=== PATIENT | female | born 1955 | race American Indian/Alaskan Native ===

== ENCOUNTER 2016-10-20 00:57 | Emergency (ER) | payer MEDICAID ==
[2016-10-20 00:57] VITALS: BMI 37.7
[2016-10-20] MEDS ORDERED: Albuterol-Ipratrop 3 mg / 0.5 (3 ml) UD INH STA (01:17)
[2016-10-20 01:27] LABS: BASO % 0.8 % (0.0-2.0); EOS # 0.2 K/uL (0.0-0.7); EOS % 4.8 % (0.0-4.0); HEMATOCRIT 40.7 % (34.0-47.0); LYMPH # 1.4 K/uL (1.0-4.3); LYMPH % 28.6 % (20.0-40.0); MEAN CELL VOLUME 86.6 fL (81.0-99.0); MEAN CORPUSCULAR HEMOGLOBIN 27.1 pg (27.0-31.0); MEAN CORPUSCULAR HGB CONC 31.3 g/dL (33.0-37.0); MEAN PLATELET VOLUME 8.7 fL (7.2-11.7); MONO # 0.4 K/uL (0.0-0.8); MONO % 7.9 % (0.0-10.0); NRBC % 0.1 % (0.0-2.0); RED CELL DISTRIBUTION WIDTH 18.1 % (11.5-14.5); WHITE BLOOD COUNT 4.9 K/uL (4.8-10.8)
[2016-10-20] MEDS ORDERED: Magnesium Sulfate 1 gm in D5W 200 ML IVPB ONE (01:27)
[2016-10-20] MEDS ORDERED: Albuterol-Ipratrop 3 mg / 0.5 (3 ml) UD ONE (01:28)
[2016-10-20 01:36] LABS: CHLORIDE 99 mmol/L (98-107)
[2016-10-20 01:37] LABS: POTASSIUM 4.2 mmol/L (3.6-5.2); SODIUM 137 mmol/L (132-148)
[2016-10-20 01:39] LABS: BILIRUBIN,TOTAL 0.7 mg/dL (0.2-1.3); CARBON DIOXIDE 30 mmol/L (22-30); GFR AFRICAN-AMERICAN > 60
[2016-10-20 01:40] LABS: ALB/GLOB RATIO 1.1 (1.0-2.1); ALKALINE PHOSPHATASE 81 U/L (38-126); ALT/SGPT 28 U/L (9-52); AST/SGOT 28 U/L (14-36); BLOOD UREA NITROGEN 18 mg/dL (7-17); GLUCOSE,RANDOM 87 mg/dL (65-105); TOTAL PROTEIN 6.6 g/dL (6.3-8.3)
[2016-10-20 04:46] VITALS: BP 160/88; PULSE 90; RESP 16; TEMP 98; O2SAT 92
--- NOTE | 2016-10-20 06:02 | C.PDOC ---
History Of Present Illness 61 year old female patient presents to the ED c/o asthma symptoms (increasing SOB) for the past couple of days. Patient denies chest pain, abdominal pain, fever, cough, chills, or any other complaints. Patient is compliant with her medications Chief Complaint (Nursing): Shortness Of Breath History Per: Patient History/Exam Limitations: no limitations Onset/Duration Of Symptoms: Days Current Symptoms Are (Timing): Still Present Severity: Mild Recent travel outside of the [place]: No Past Medical History Reviewed: Historical Data, Nursing Documentation, Vital Signs Vital Signs: Last Vital Signs Temp 98.0 F 10/20/16 04:44 Pulse 90 10/20/16 04:44 Resp 16 10/20/16 04:44 BP 160/88 H 10/20/16 04:44 Pulse Ox 92 L 10/20/16 06:20 - Medical History PMH: Asthma, COPD (asthma), HTN Surgical History: Cholecystectomy - [facility] Procedures ASSISTANCE WITH RESPIRATORY VENTILATION, 24-96 HRS, CPAP (07/14/16) CONTINUOUS INVASIVE MECHANICAL VENTILATION =/>96 CONSEC HRS (07/25/14) DETOXIFICATION SERVICES FOR SUBSTANCE ABUSE TREATMENT (03/26/15) DRUG DETOXIFICATION (07/25/14) EXCISION OF RIGHT PLEURA, PERC ENDO APPROACH, DIAGN (03/26/15) EXCISION OF RIGHT UPPER LOBE BRONCHUS, PERC APPROACH, DIAGN (03/26/15) EXTRACTION OF RIGHT PLEURA, PERCUTANEOUS ENDOSCOPIC APPROACH (03/26/15) INFLUENZA VACCINATION (06/25/14) INSERT ENDOTRACHEAL TUBE (07/25/14) Family History: States: Unknown Family Hx - Social History Hx Tobacco Use: Yes Hx Alcohol Use: Yes Hx Substance Use: Yes (Snorts Heroin) - Immunization History Hx Tetanus Toxoid Vaccination: No Hx Influenza Vaccination: Yes Hx Pneumococcal Vaccination: No Review Of Systems Except As Marked, All Systems Reviewed And Found Negative. Constitutional: Negative for: Fever, Chills Cardiovascular: Negative for: Chest Pain Respiratory: Positive for: Shortness of Breath. Negative for: Cough Gastrointestinal: Negative for: Abdominal Pain Physical Exam - Physical Exam Appears: Non-toxic, No Acute Distress Skin: Warm, Dry Head: Atraumatic, Normacephalic Eye(s): bilateral: Normal Inspection Cardiovascular: Rhythm Regular, No Murmur Respiratory: No Rales, No Rhonchi, Wheezing (Mild expiratory wheezing) Gastrointestinal/Abdominal: Soft, No Tenderness Extremity: Pedal Edema (+ 1 pedal edema of the lower extremity) Neurological/Psych: Oriented x3, Normal Speech, Normal Cognition ED Course And Treatment - Laboratory Results Result Diagrams: 10/20/16 01:24 10/20/16 01:24 ECG: Interpreted By Me, Viewed By Me ECG Rhythm: L BBB (66) O2 Sat by Pulse Oximetry: 92 (Nebulizer treatment) Pulse Ox Interpretation: Normal Medical Decision Making Medical Decision Making: Plans: -EKG -CXR -Albuterol -Lasix -Toradol -IV fluids -Medrol -Nebulizer treatment -Reassess and disposition On reassessment, patient is resting comfortably. ~Patient is alert and oriented x 3. ~Patient was advised to follow up with PMD in a few days. Disposition - Disposition Referrals: Fartun Quinteros MD [Primary Care Provider] - Disposition: HOME/ ROUTINE Disposition Time: 04:30 Condition: IMPROVED Additional Instructions: Thank you for letting us take care of you today. Your provider was Dr. Chavis. You were treated for asthma exacerbation. The emergency medical care you received today was directed at your acute symptoms. If you were prescribed any medication, please fill it and take as directed. It may take several days for your symptoms to resolve. Return to the Emergency Department if your symptoms worsen, do not improve, or if you have any other problems. Please contact your doctor or call one of the physicians/clinics you have been referred to that are listed on the Patient Visit Information form that is included in your discharge packet. Bring any paperwork you were given at discharge with you along with any medications you are taking to your follow up visit. Our treatment cannot replace ongoing medical care by a primary care provider (PCP) outside of the emergency department. Thank you for allowing the [facility] team to be part of your care today. Follow up with your primary doctor in 2-3 days to be re-evaluated. Prescriptions: predniSONE [Prednisone] 40 mg PO DAILY #10 tab Instructions: Asthma (ED) - Clinical Impression Clinical Impression: Exacerbation of asthma - Scribe Statement The provider has reviewed the documentation as recorded by the Scribe Dominique horne All medical record entries made by the Scribe were at my direction and personally dictated by me. I have reviewed the chart and agree that the record accurately reflects my personal performance of the history, physical exam, medical decision making, and the department course for this patient. I have also personally directed, reviewed, and agree with the discharge instructions and disposition.
--- NOTE | 2016-10-20 09:09 | RAD ---
HISTORY: Shortness of breath COMPARISON: 07/17/2016 FINDINGS: LUNGS: Mild venous congestion. Bilateral hilar prominence. Patchy increased markings at the lung bases. PLEURA: No significant pleural effusion identified, no pneumothorax apparent. CARDIOVASCULAR: Mild calcification at the aortic knob. OSSEOUS STRUCTURES: Calcific tendinopathy of the right proximal humerus. VISUALIZED UPPER ABDOMEN: Normal. OTHER FINDINGS: None. IMPRESSION: Mild venous congestion. Bilateral hilar prominence. Patchy increased markings at the lung bases.
--- NOTE | 2016-10-20 12:48 | CARD ---
APPROVED REPORT EKG Measurement Heart [id number] MD [id number] <Conclusion> Normal sinus rhythm Possible Left atrial enlargement Left bundle branch block Abnormal ECG
== END 2016-10-20 04:46 | disposition home or self-care (01) ==
LOC: C.ER 00:57 → SUPCPDRO 00:57 → C.ER 04:46
DX: J45.901 Unspecified asthma with (acute) exacerbation (principal)
CPT/HCPCS: 71010; 80053; 83880; 84484; 85025; 93005; 94640; 96365; 96366; 96375; 99284; J1885; J1940; J2930; J3475

== ENCOUNTER 2016-10-24 13:09 | Inpatient (IN) | payer MEDICAID ==
[2016-10-24 13:15] VITALS: BMI 30.1
[2016-10-24] MEDS ORDERED: Albuterol-Ipratrop 3 mg / 0.5 (3 ml) UD INH STA ×3 (13:37→15:27)
[2016-10-24] MEDS ORDERED: Naloxone 0.4 mg/ml Inj (Adult) IM ONE ×2 (13:37→18:41)
[2016-10-24] MEDS ORDERED: Albuterol-Ipratrop 3 mg / 0.5 (3 ml) UD ONE ×2 (13:45→15:47)
[2016-10-24] MEDS ORDERED: Naloxone 0.4 mg/ml Inj (Adult) ONE ×2 (13:46→15:41)
[2016-10-24] MEDS ORDERED: Naloxone 0.4 mg/ml Inj (Adult) IM STA (15:27)
--- NOTE | 2016-10-24 15:29 | C.PDOC ---
History Of Present Illness 61 y/o female is brought into the ED by ambulance for complaints of wheezing and shortness of breath. She was seen here 4 days ago for same and did not fill her Prednisone prescription. She admits to persistent heroin abuse (snorting) and states she has used 4 bags today. Patient denies any chest pain, fever, SI/ HI, or other complaints. Time Seen by Provider: 10/24/16 13:30 Chief Complaint (Nursing): Shortness Of Breath Past Medical History Vital Signs: Last Vital Signs Temp 98.9 F 10/24/16 13:15 Pulse 88 10/24/16 15:51 Resp 24 10/24/16 15:51 BP 167/95 H 10/24/16 15:51 Pulse Ox 98 10/24/16 16:42 - Medical History PMH: Asthma, COPD (asthma), HTN Surgical History: Cholecystectomy - [facility] Procedures ASSISTANCE WITH RESPIRATORY VENTILATION, 24-96 HRS, CPAP (07/14/16) CONTINUOUS INVASIVE MECHANICAL VENTILATION =/>96 CONSEC HRS (07/25/14) DETOXIFICATION SERVICES FOR SUBSTANCE ABUSE TREATMENT (03/26/15) DRUG DETOXIFICATION (07/25/14) EXCISION OF RIGHT PLEURA, PERC ENDO APPROACH, DIAGN (03/26/15) EXCISION OF RIGHT UPPER LOBE BRONCHUS, PERC APPROACH, DIAGN (03/26/15) EXTRACTION OF RIGHT PLEURA, PERCUTANEOUS ENDOSCOPIC APPROACH (03/26/15) INFLUENZA VACCINATION (06/25/14) INSERT ENDOTRACHEAL TUBE (07/25/14) Family History: States: Unknown Family Hx - Social History Hx Tobacco Use: Yes Hx Alcohol Use: Yes Hx Substance Use: Yes (Snorts Heroin) - Immunization History Hx Tetanus Toxoid Vaccination: No Hx Influenza Vaccination: Yes Hx Pneumococcal Vaccination: No Review Of Systems Except As Marked, All Systems Reviewed And Found Negative. Constitutional: Negative for: Fever Cardiovascular: Negative for: Chest Pain Respiratory: Positive for: Shortness of Breath, Wheezing Psych: Negative for: Suicidal ideation Physical Exam - Physical Exam Appears: Non-toxic, No Acute Distress, Other (somnolent) Skin: Normal Color, Warm, Dry, No Rash Head: Atraumatic, Normacephalic Eye(s): bilateral: Other (pinpoint pupils) Nose: Normal Throat: Normal Neck: Normal ROM Chest: Symmetrical Cardiovascular: Rhythm Regular Respiratory: Rhonchi (scattered), Wheezing (scattered), Other (unlabored breathing; poor air movement) Gastrointestinal/Abdominal: Normal Exam, Soft, No Tenderness Back: Normal Inspection, No CVA Tenderness Extremity: Normal ROM, No Swelling Neurological/Psych: Oriented x3, Normal Speech, Normal Cognition ED Course And Treatment - Laboratory Results Result Diagrams: 10/24/16 15:34 10/24/16 15:34 Lab Interpretation: Normal ECG: Interpreted By Me ECG Rhythm: Sinus Rhythm, L BBB ECG Interpretation: No Changes From Prior (10/20/16), Abnormal Rate From EC O2 Sat by Pulse Oximetry: 98 (ra) Pulse Ox Interpretation: Normal - Radiology CXR: Interpreted by Me CXR Interpretation: Yes: No Acute Disease Progress Note: a Reevaluation Time: 15:28 Reassessment Condition: Unchanged (mild asthma improvement, asleep, poor resp effort, pinpoint pupils, ? redosed with heroine while in ED?? Narcan 2.0 mg IM ordered and pt moved closer to nursing station.) Critical Care Time - Critical Care Note Total Time (in mins): 90 Documented critical care: time excludes all time spent performing seperately billable procedures. Medical Decision Making Medical Decision Making: Plan: * EKG * CXR * Blood Work * Urinalysis * Narcam IM, Prednisone PO, Duonebs heroine abuse (intranasal) asthma exacerbation, poor outpatient treatment since 10/20/16 (did not fill steroids and unclear if doing home nebs treatments) Disposition Doctor Will See Patient In The: Hospital Counseled Patient/Family Regarding: Studies Performed, Diagnosis - Disposition Disposition: HOSPITALIZED Disposition Time: 16:38 Condition: FAIR - Clinical Impression Clinical Impression: Exacerbation of asthma, Heroin dependence - Scribe Statement The provider has reviewed the documentation as recorded by the Scribe (Carolina Treviño) Provider Attestation: All medical record entries made by the Scribe were at my direction and personally dictated by me. I have reviewed the chart and agree that the record accurately reflects my personal performance of the history, physical exam, medical decision making, and the department course for this patient. I have also personally directed, reviewed, and agree with the discharge instructions and disposition.
[2016-10-24 15:40] LABS: BASO % 0.5 % (0.0-2.0); EOS # 0.2 K/uL (0.0-0.7); EOS % 2.2 % (0.0-4.0); HEMATOCRIT 43.4 % (34.0-47.0); LYMPH % 11.8 % (20.0-40.0); MEAN CELL VOLUME 85.1 fL (81.0-99.0); MEAN CORPUSCULAR HEMOGLOBIN 26.7 pg (27.0-31.0); MEAN CORPUSCULAR HGB CONC 31.3 g/dL (33.0-37.0); MEAN PLATELET VOLUME 8.2 fL (7.2-11.7); MONO # 0.3 K/uL (0.0-0.8); MONO % 3.6 % (0.0-10.0); RED CELL DISTRIBUTION WIDTH 18.1 % (11.5-14.5)
[2016-10-24 15:45] LABS: WHITE BLOOD COUNT 8.1 K/uL (4.8-10.8)
[2016-10-24 15:47] LABS: CHLORIDE 98 mmol/L (98-107); POTASSIUM 4.2 mmol/L (3.6-5.2); SODIUM 139 mmol/L (132-148)
[2016-10-24 15:49] LABS: GFR AFRICAN-AMERICAN 51
[2016-10-24 15:50] LABS: ALKALINE PHOSPHATASE 84 U/L (38-126); ALT/SGPT 38 U/L (9-52); AST/SGOT 26 U/L (14-36); BILIRUBIN,TOTAL 0.8 mg/dL (0.2-1.3); BLOOD UREA NITROGEN 35 mg/dL (7-17); CARBON DIOXIDE 29 mmol/L (22-30); GLUCOSE,RANDOM 95 mg/dL (65-105); TOTAL PROTEIN 6.7 g/dL (6.3-8.3)
[2016-10-24 15:51] LABS: ALCOHOL SERUM < 10 mg/dl (0-10)
--- NOTE | 2016-10-24 16:53 | RAD ---
PROCEDURE: CHEST RADIOGRAPH, 1 VIEW HISTORY: SOB COMPARISON: 10/20/2016. FINDINGS: LUNGS: Stable bilateral lower lobe. PLEURA: No pneumothorax or pleural fluid seen. CARDIOVASCULAR: No radiographic findings to suggest acute or significant cardiovascular disease. OSSEOUS STRUCTURES: No significant abnormalities. VISUALIZED UPPER ABDOMEN: Normal. OTHER FINDINGS: None. IMPRESSION: Stable bilateral lower lobe infiltrates.
--- NOTE | 2016-10-24 16:59 | CP.PCM.HP ---
<Nicole Simpson - Last Filed: 10/24/16 17:11> History of Present Illness - History of Present Illness History of Present Illness: Please note history is limited as patient was withdrawing CC: I couldn't breathe HPI: 61 year old homeless AA female with PMHx of HTN, COPD/asthma, pneumonia, heroin abuse presents to ED with complains of shortness of breath and wheezing. Patient reports having snorted 4 bags of heroin during the day prior to admission. Patient was brought in by EMS and was given one duoneb treatment en route and given 3 treatments in the ED. When she first arrived patient reported still being "high" and had pinpoint pupils. After being given narcan she began to withdraw and started complaining of vomiting and body aches. Patient had green colored emesis in the ED and was complaining of abdominal pain. Patient did report a "marc horse" but would not tell me in which leg. She reported that her breathing had improved slightly after the treatments. Patient denied any fever, chills, headaches, chest pain. ROS was limited. PMD: None PMHx: HTN, COPD/asthma, pneumonia, IV drug abuse (heroin). PSHx: cholecystectomy FamHx: unknown SocHx: homeless, heavy smoker 1ppd, patient reports drinking 1pint/day, IV drug abuse (heroin) 4-5 bags/day. Present on Admission - Present on Admission Any Indicators Present on Admission: Yes History of DVT/PE: Yes History of Uncontrolled Diabetes: No Urinary Catheter: No Decubitus Ulcer Present: No Review of Systems - Review of Systems Systems not reviewed;Unavailable: Intoxicated - Constitutional Constitutional: As Per HPI. absent: Fever - EENT Eyes: As Per HPI - Cardiovascular Cardiovascular: As Per HPI. absent: Chest Pain - Respiratory Respiratory: As Per HPI, Dyspnea, Dyspnea on Exertion, Wheezing - Gastrointestinal Gastrointestinal: As Per HPI, Abdominal Pain, Nausea, Vomiting - Genitourinary Genitourinary: As Per HPI - Musculoskeletal Musculoskeletal: As Per HPI, Muscle Cramps, Myalgias - Integumentary Integumentary: As Per HPI - Neurological Neurological: As Per HPI - Psychiatric Psychiatric: As Per HPI - Endocrine Endocrine: As Per HPI - Hematologic/Lymphatic Hematologic: As Per HPI Past Patient History - Infectious Disease Hx of Infectious Diseases: None - Past Medical History & Family History Past Medical History?: Yes - Past Social History Smoking Status: Heavy Smoker > 10 Cigarettes Daily - CARDIAC Hx Hypertension: Yes - PULMONARY Hx Asthma: Yes Hx Chronic Obstructive Pulmonary Disease (COPD): Yes (asthma) - NEUROLOGICAL Hx Neurological Disorder: No - HEENT Hx HEENT Problems: No - ENDOCRINE/METABOLIC Hx Endocrine Disorders: No - HEMATOLOGICAL/ONCOLOGICAL Hx Blood Disorders: No - INTEGUMENTARY Hx Dermatological Problems: No - MUSCULOSKELETAL/RHEUMATOLOGICAL Hx Falls: No - GASTROINTESTINAL Hx Gastrointestinal Disorders: No Hx Gastroesophageal Reflux: Yes - GENITOURINARY/GYNECOLOGICAL Hx Genitourinary Disorders: No - PSYCHIATRIC Hx Substance Use: Yes (Snorts Heroin) - SURGICAL HISTORY Hx Cholecystectomy: Yes - ANESTHESIA Hx Anesthesia: Yes Hx Anesthesia Reactions: No Hx Malignant Hyperthermia: No Meds Allergies/Adverse Reactions: Allergies Allergy/AdvReac Type Severity Reaction Status Date / Time No Known Allergies Allergy Verified 10/24/16 13:24 Physical Exam - Constitutional Appears: Non-toxic, In Acute Distress - Head Exam Head Exam: NORMAL INSPECTION - Eye Exam Eye Exam: Normal appearance. absent: Conjunctival injection, Periorbital swelling, Scleral icterus Pupil Exam: Miosis. absent: Unequal - ENT Exam ENT Exam: Mucous Membranes Dry - Respiratory Exam Respiratory Exam: Decreased Breath Sounds, Prolonged Expiratory Phase, Rhonchi, Wheezes. absent: Accessory Muscle Use, Clear to Auscultation Bilateral, Rales, Respiratory Distress, Stridor Additional comments: poor air movement - Cardiovascular Exam Cardiovascular Exam: Tachycardia, REGULAR RHYTHM, +S1, +S2. absent: JVD, RRR - GI/Abdominal Exam GI & Abdominal Exam: Normal Bowel Sounds, Soft, Tenderness (diffuse). absent: Firm, Guarding, Rebound, Rigid - Extremities Exam Extremities exam: Positive for: pedal edema, tenderness - Back Exam Back exam: absent: rash noted - Neurological Exam Neurological exam: Alert, Oriented x3 - Skin Skin Exam: Dry, Intact, Normal Color, Warm Results - Vital Signs Recent Vital Signs: Last Vital Signs Temp 98.9 F 10/24/16 13:15 Pulse 88 10/24/16 15:51 Resp 24 10/24/16 15:51 BP 167/95 H 10/24/16 15:51 Pulse Ox 98 10/24/16 16:53 - Labs Result Diagrams: 10/24/16 15:34 10/24/16 15:34 Labs: Laboratory Results - last 24 hr 10/24/16 15:34 WBC 8.1 D RBC 5.10 Hgb 13.6 Hct 43.4 MCV 85.1 MCH 26.7 L MCHC 31.3 L RDW 18.1 H Plt Count 206 MPV 8.2 Neut % (Auto) 81.9 H Lymph % (Auto) 11.8 L [place] % (Auto) 3.6 Eos % (Auto) 2.2 Baso % (Auto) 0.5 Neut # 6.7 Lymph # 1.0 [place] # 0.3 Eos # 0.2 Baso # 0.0 Sodium 139 Potassium 4.2 Chloride 98 Carbon Dioxide 29 Anion Gap 15 BUN 35 H Creatinine 1.3 H Est GFR ( Amer) 51 Est GFR (Non-Af Amer) 42 Random Glucose 95 Calcium 9.0 Total Bilirubin 0.8 AST 26 ALT 38 Alkaline Phosphatase 84 Total Protein 6.7 Albumin 3.4 L Globulin 3.3 Albumin/Globulin Ratio 1.0 Alcohol, Quantitative < 10 Assessment & Plan - Assessment and Plan (Free Text) Assessment: 61 year old homeless AA female with PMHx of HTN, COPD/asthma, pneumonia, heroin abuse presents to ED with complains of shortness of breath and wheezing Plan: Acute asthma/COPD exacerbation f/u AM labs CXR 10/24: stable b/l lower lobe infiltrates Duoneb 3ml INH Q6 PRN Solumedrol 40mg IVP Q6H ppx abx for pneumonia: Azithromycin and Rocephin Pulm consult Dr. Flores- f/u recommendations Heroin withdrawal Methadone 5mg PO PRN for agitation- one time Abilify 10mg PO HS f/u UDS Psych consult Dr. Enriquez- f/u recommendations Hx of hypertension Norvasc 10mg po daily ASA 81mg po daily Monitor BP Hx of hyperlipidemia Crestor 2.5mg po daily Hx of b/l PE as per patient records, patient had bilateral PE in April 2015 admission f/u LE dopplers SCD c/i PPX Lovenox 40mg SC daily Protonix IVP daily Zofran 4mg IVP Q6H PRN NS @ 70cc/hr SCD c/i NPO as patient is vomiting Nicoderm patch Plan discussed with Dr. Teressa Simpson PGY1 <Thaddeus Gannon M - Last Filed: 10/25/16 14:31> Results - Vital Signs Recent Vital Signs: Last Vital Signs Temp 98.8 F 10/25/16 08:39 Pulse 98 H 10/25/16 12:49 Resp 18 10/25/16 08:39 BP 179/105 H 10/25/16 11:02 Pulse Ox 95 10/25/16 08:39 - Labs Result Diagrams: 10/25/16 06:28 10/25/16 06:28 Labs: Laboratory Results - last 24 hr 10/24/16 10/24/16 10/25/16 17:56 19:37 06:28 WBC 5.8 RBC 5.51 H Hgb 14.9 Hct 46.7 MCV 84.7 MCH 26.9 L MCHC 31.8 L RDW 18.0 H Plt Count 216 MPV 8.8 Neut % (Auto) 83.1 H Lymph % (Auto) 14.9 L [place] % (Auto) 1.7 Eos % (Auto) 0.0 Baso % (Auto) 0.3 Neut # 4.8 Lymph # 0.9 L [place] # 0.1 Eos # 0.0 Baso # 0.0 Puncture Site Rradial pCO2 45 pO2 79 L HCO3 26.2 ABG pH 7.39 ABG Total CO2 28.6 H ABG O2 Saturation 97.2 ABG Base Excess 1.7 Angelito Test Pos ABG Potassium 3.4 L A-a O2 Difference 93.0 Respiratory Index 1.2 Sodium 138.0 139 Chloride 107.0 102 Glucose 127 H Lactate 0.8 Liter Flow 3.0 FiO2 32.0 Potassium 4.7 Carbon Dioxide 26 Anion Gap 16 BUN 22 H Creatinine 0.9 Est GFR ( Amer) > 60 Est GFR (Non-Af Amer) > 60 POC Glucose (mg/dL) Random Glucose 119 H Calcium 8.9 Phosphorus 3.6 Magnesium 2.1 Total Bilirubin 0.9 AST 22 ALT 31 Alkaline Phosphatase 93 Total Protein 7.0 Albumin 3.5 Globulin 3.5 Albumin/Globulin Ratio 1.0 Arterial Blood Potassium 3.4 L Urine Color Yellow Urine Clarity Clear Urine pH 6.0 Ur Specific [place] 1.015 Urine Protein 2+ H Urine Glucose (UA) Normal Urine Ketones Trace Urine Blood Trace H Urine Nitrate Negative Urine Bilirubin Negative Urine Urobilinogen Normal Ur Leukocyte Esterase Neg Urine WBC (Auto) 1 Urine RBC (Auto) 3 Ur Squamous Epith Cells < 1 Urine Bacteria Rare Urine Opiates Screen Positive Urine Methadone Screen Negative Ur Barbiturates Screen Negative Ur Phencyclidine Scrn Negative Ur Amphetamines Screen Negative U Benzodiazepines Scrn Negative U Oth Cocaine Metabols Negative U Cannabinoids Screen Negative 10/25/16 12:07 WBC RBC Hgb Hct MCV MCH MCHC RDW Plt Count MPV Neut % (Auto) Lymph % (Auto) [place] % (Auto) Eos % (Auto) Baso % (Auto) Neut # Lymph # [place] # Eos # Baso # Puncture Site pCO2 pO2 HCO3 ABG pH ABG Total CO2 ABG O2 Saturation ABG Base Excess Angelito Test ABG Potassium A-a O2 Difference Respiratory Index Sodium Chloride Glucose Lactate Liter Flow FiO2 Potassium Carbon Dioxide Anion Gap BUN Creatinine Est GFR ( Amer) Est GFR (Non-Af Amer) POC Glucose (mg/dL) 159 H Random Glucose Calcium Phosphorus Magnesium Total Bilirubin AST ALT Alkaline Phosphatase Total Protein Albumin Globulin Albumin/Globulin Ratio Arterial Blood Potassium Urine Color Urine Clarity Urine pH Ur Specific [place] Urine Protein Urine Glucose (UA) Urine Ketones Urine Blood Urine Nitrate Urine Bilirubin Urine Urobilinogen Ur Leukocyte Esterase Urine WBC (Auto) Urine RBC (Auto) Ur Squamous Epith Cells Urine Bacteria Urine Opiates Screen Urine Methadone Screen Ur Barbiturates Screen Ur Phencyclidine Scrn Ur Amphetamines Screen U Benzodiazepines Scrn U Oth Cocaine Metabols U Cannabinoids Screen Attending/Attestation - Attestation I have personally seen and examined this patient.: Yes I have fully participated in the care of the patient.: Yes I have reviewed all pertinent clinical information: Yes Notes (Text): 10/25/16 14:29 Patient was seen and examined at bedside with the resident the time of admission Patient is somnolent but easily arousable Patient received Narcan in the ER Patient is currently stable on oxygen by nasal cannula however we will place her on BiPAP as needed We will continue treatment with nebulizers, steroids. We will also start antibiotics for pneumonia We will treat the patient for heroin withdrawal and put her on methadone as needed. We have requested pulmonary and psychiatry evaluation
[2016-10-24] MEDS ORDERED: Albuterol-Ipratrop 3 mg / 0.5 (3 ml) UD INH PRN ×2 (17:28→17:49)
[2016-10-24] MEDS ORDERED: Sodium Chloride 0.9% 1,000 ML ONE (18:01)
[2016-10-24] MEDS: Sodium Chloride 0.9% 1,000 ML IV SCH (18:03)
[2016-10-24 18:05] LABS: RBC URINE 3 /hpf (0-3); URINE BACTERIA RARE (<OCC); URINE BILIRUBIN NEGATIVE (NEGATIVE); URINE COLOR Yellow (YELLOW); URINE GLUCOSE (UA) NORMAL (Normal); URINE KETONE TRACE mg/dL (NEGATIVE); URINE LEUKOCYTE ESTERASE NEG Leu/uL (Negative); URINE PROTEIN 2+ mg/dL (NEGATIVE); URINE UROBILINOGEN NORMAL mg/dL (0.2-1.0); WBC URINE 1 /hpf (0-5)
[2016-10-24 18:06] LABS: URINE BLOOD TRACE (NEGATIVE)
[2016-10-24] MEDS ORDERED: MethylPREDNISolone 40 mg Vial ONE (18:43)
[2016-10-24] MEDS ORDERED: cefTRIAXone IV 1 gm in Dextros 50 ML IVPB ONE (18:44)
[2016-10-24] MEDS: Enoxaparin 40 mg Syringe SC SCH (18:53)
[2016-10-24] MEDS: MethylPREDNISolone 40 mg Vial IVP SCH (19:30)
[2016-10-24 19:49] LABS: ABG ALLEN TEST POS; DRAW SITE RRADIAL
[2016-10-24] MEDS: Azithromycin 500 MG in Sodium Chloride 0.9% 250 ML IVPB SCH (21:24)
[2016-10-24] MEDS ORDERED: Potassium Chloride 20 mEq 100 ML IVPB ONE (22:43)
[2016-10-24] MEDS: Rosuvastatin Calcium 2.5 mg Tab PO SCH (22:58)
[2016-10-25] MEDS: MethylPREDNISolone 40 mg Vial IVP SCH ×5 (00:30→22:44)
[2016-10-25] MEDS: Albuterol-Ipratrop 3 mg / 0.5 (3 ml) UD INH SCH ×4 (01:42→19:28)
--- NOTE | 2016-10-25 02:12 | CP.PCM.PN ---
<Karen Wood - Last Filed: 10/25/16 02:22> Subjective - Date & Time of Evaluation Date of Evaluation: 10/25/16 Time of Evaluation: 02:07 - Subjective Subjective: Patient seen and examined at bedside. She was sleeping on presentation. She notes breathing improved. Continues to complain of nausea No further episodes of emesis per nursing. She continues to have dry cough. Full review of system unable to be obtained as patient not answering further questions currently. Objective - Vital Signs/Intake and Output Vital Signs (last 24 hours): Temp Pulse Resp BP Pulse Ox 98 F 73 20 132/76 97 10/24/16 23:05 10/24/16 23:05 10/24/16 23:05 10/24/16 23:05 10/24/16 23:05 - Medications Medications: Current Medications Acetaminophen (Tylenol 325mg Tab) 650 mg PO Q4H PRN PRN Reason: Fever >100.4 F Albuterol/Ipratropium (Duoneb 3 Mg/0.5 Mg (3 Ml) Ud) 3 ml INH RQ6 [facility] Last Admin: 10/25/16 01:42 Dose: Not Given Amlodipine Besylate (Norvasc) 10 mg PO DAILY [facility] Aripiprazole (Abilify) 10 mg PO HS [facility] Last Admin: 10/24/16 22:58 Dose: 10 mg Aspirin (Ecotrin) 81 mg PO DAILY [facility] Enoxaparin Sodium (Lovenox) 40 mg SC DAILY [facility] Last Admin: 10/24/16 18:53 Dose: 40 mg Hydralazine HCl (Apresoline) 10 mg IVP Q6H PRN PRN Reason: Other Azithromycin 500 mg/ Sodium (Chloride) 250 mls @ 250 mls/hr IVPB DAILY [facility] Last Admin: 10/24/16 21:24 Dose: 250 mls/hr Sodium Chloride (Sodium Chloride 0.9%) 1,000 mls @ 70 mls/hr IV .[id number] [facility] Last Admin: 10/24/16 18:03 Dose: 70 mls/hr Ceftriaxone Sodium 1 gm/ (Sodium Chloride) 100 mls @ 100 mls/hr IVPB DAILY [facility] Last Admin: 10/24/16 18:53 Dose: 100 mls/hr Methadone HCl (Methadone) 5 mg PO ONCE PRN PRN Reason: Agitation Methylprednisolone (Solu-Medrol) 40 mg IVP Q6H [facility] Last Admin: 10/25/16 00:30 Dose: 40 mg Mirtazapine (Remeron) 30 mg PO [facility] Last Admin: 10/24/16 23:12 Dose: 30 mg Montelukast Sodium (Singulair) 10 mg PO [facility] Nicotine (Nicoderm Cq) 1 patch TD DAILY [facility] Ondansetron HCl (Zofran Inj) 4 mg IVP Q6H PRN PRN Reason: Nausea/Vomiting Pantoprazole Sodium (Protonix Inj) 40 mg IVP DAILY [facility] Last Admin: 10/24/16 18:50 Dose: 40 mg Rosuvastatin Calcium (Crestor) 2.5 mg PO HS [facility] Last Admin: 10/24/16 22:58 Dose: 2.5 mg - Constitutional Appears: Non-toxic, No Acute Distress - Head Exam Head Exam: ATRAUMATIC, NORMAL INSPECTION - Eye Exam Eye Exam: Normal appearance. absent: Scleral icterus - Respiratory Exam Respiratory Exam: Wheezes. absent: Accessory Muscle Use Additional comments: dry cough - Cardiovascular Exam Cardiovascular Exam: +S1, +S2. absent: Tachycardia - GI/Abdominal Exam GI & Abdominal Exam: Soft, Tenderness, Hyperactive Bowel Sounds. absent: Firm, Guarding - Extremities Exam Extremities Exam: Pedal Edema - Neurological Exam Neurological Exam: Alert - Psychiatric Exam Psychiatric exam: Flat Affect - Skin Skin Exam: Intact, Normal Color, Warm Assessment and Plan - Assessment and Plan (Free Text) Assessment: 61 year old homeless AA female with PMHx of HTN, COPD/asthma, pneumonia, heroin abuse presents to ED with complains of shortness of breath and wheezing Plan: Acute asthma/COPD exacerbation f/u AM labs CXR 10/24: stable b/l lower lobe infiltrates Continue Duoneb 3ml INH Q6 PRN Continue Solumedrol 40mg IVP Q6H Continue ppx abx for pneumonia: Azithromycin and Rocephin Pulm consult Dr. Flores- f/u recommendations Heroin withdrawal Methadone 5mg PO PRN for agitation- one time Abilify 10mg PO HS UDS positive for opiates Psych consult Dr. Enriquez- f/u recommendations Hx of hypertension Blood pressure: 132/76 Norvasc 10mg po daily ASA 81mg po daily Monitor BP Hx of hyperlipidemia Crestor 2.5mg po daily Hx of b/l PE as per patient records, patient had bilateral PE in April 2015 admission f/u LE dopplers SCD contraindicated PPX Lovenox 40mg SC daily Protonix IVP daily Zofran 4mg IVP Q6H PRN NS @ 70cc/hr SCD contraindicated NPO as patient is vomiting Nicoderm patch <TeressaTonja lopezn M - Last Filed: 10/25/16 14:56> Objective - Vital Signs/Intake and Output Vital Signs (last 24 hours): Temp Pulse Resp BP Pulse Ox 98.8 F 98 H 18 179/105 H 95 10/25/16 08:39 10/25/16 12:49 10/25/16 08:39 10/25/16 11:02 10/25/16 08:39 Intake and Output: 10/25/16 10/25/16 06:59 18:59 Intake Total 810 Balance 810 - Medications Medications: Current Medications Acetaminophen (Tylenol 325mg Tab) 650 mg PO Q4H PRN PRN Reason: Fever >100.4 F Albuterol/Ipratropium (Duoneb 3 Mg/0.5 Mg (3 Ml) Ud) 3 ml INH RQ6 [facility] Last Admin: 10/25/16 13:47 Dose: 3 ml Amlodipine Besylate (Norvasc) 10 mg PO DAILY [facility] Last Admin: 10/25/16 09:21 Dose: 10 mg Aripiprazole (Abilify) 10 mg PO HS [facility] Last Admin: 10/24/16 22:58 Dose: 10 mg Aspirin (Ecotrin) 81 mg PO DAILY [facility] Last Admin: 10/25/16 09:20 Dose: 81 mg Enoxaparin Sodium (Lovenox) 40 mg SC DAILY [facility] Last Admin: 10/25/16 09:20 Dose: 40 mg Hydralazine HCl (Apresoline) 10 mg IVP Q6H PRN PRN Reason: Other Last Admin: 10/25/16 09:18 Dose: 10 mg Azithromycin 500 mg/ Sodium (Chloride) 250 mls @ 250 mls/hr IVPB DAILY [facility] Last Admin: 10/25/16 11:07 Dose: 250 mls/hr Sodium Chloride (Sodium Chloride 0.9%) 1,000 mls @ 70 mls/hr IV .[id number] [facility] Last Admin: 10/24/16 18:03 Dose: 70 mls/hr Ceftriaxone Sodium 1 gm/ (Sodium Chloride) 100 mls @ 100 mls/hr IVPB DAILY [facility] Last Admin: 10/25/16 09:35 Dose: 100 mls/hr Methadone HCl (Methadone) 5 mg PO ONCE PRN PRN Reason: Agitation Methadone HCl (Methadone) 10 mg PO Q24H [facility] PRN Reason: Taper Stop: 10/28/16 10:14 Last Admin: 10/25/16 10:28 Dose: 10 mg Methylprednisolone (Solu-Medrol) 40 mg IVP Q6H [facility] Last Admin: 10/25/16 11:07 Dose: 40 mg Mirtazapine (Remeron) 30 mg PO HS [facility] Last Admin: 10/24/16 23:12 Dose: 30 mg Montelukast Sodium (Singulair) 10 mg PO HS [facility] Nicotine (Nicoderm Cq) 1 patch TD DAILY [facility] Last Admin: 10/25/16 09:20 Dose: 1 patch Ondansetron HCl (Zofran Inj) 4 mg IVP Q6H PRN PRN Reason: Nausea/Vomiting Last Admin: 10/25/16 09:21 Dose: 4 mg Pantoprazole Sodium (Protonix Inj) 40 mg IVP DAILY [facility] Last Admin: 10/25/16 09:21 Dose: 40 mg Rosuvastatin Calcium (Crestor) 2.5 mg PO HS [facility] Last Admin: 10/24/16 22:58 Dose: 2.5 mg - Labs Labs: 10/25/16 06:28 10/25/16 06:28 Attending/Attestation - Attestation I have personally seen and examined this patient.: Yes I have fully participated in the care of the patient.: Yes I have reviewed all pertinent clinical information, including history, physical exam and plan: Yes Notes (Text): 10/25/16 14:55 Patient was seen and examined at bedside today She is somnolent but easily arousable Patient complains of mild abdominal pain She is evaluated by psychiatry for heroin withdrawal and started on methadone We will continue treatment for asthma exacerbation with steroids and nebulizers We will also continue antibiotics for pneumonia I agree with the above history and physical and assessment/plan by the resident with the necessary amendments.
[2016-10-25 06:54] LABS: CHLORIDE 102 mmol/L (98-107)
[2016-10-25 06:55] LABS: POTASSIUM 4.7 mmol/L (3.6-5.2); SODIUM 139 mmol/L (132-148)
[2016-10-25 06:57] LABS: AST/SGOT 22 U/L (14-36); BILIRUBIN,TOTAL 0.9 mg/dL (0.2-1.3); BLOOD UREA NITROGEN 22 mg/dL (7-17); CARBON DIOXIDE 26 mmol/L (22-30); GFR AFRICAN-AMERICAN > 60
[2016-10-25 06:58] LABS: ALKALINE PHOSPHATASE 93 U/L (38-126); ALT/SGPT 31 U/L (9-52); CALCIUM 8.9 mg/dl (8.6-10.4); GLUCOSE,RANDOM 119 mg/dL (65-105); MAGNESIUM 2.1 mg/dL (1.6-2.3); PHOSPHOROUS 3.6 mg/dL (2.5-4.5)
[2016-10-25 07:18] LABS: BASO % 0.3 % (0.0-2.0); HEMATOCRIT 46.7 % (34.0-47.0); LYMPH # 0.9 K/uL (1.0-4.3); LYMPH % 14.9 % (20.0-40.0); MEAN CELL VOLUME 84.7 fL (81.0-99.0); MEAN CORPUSCULAR HEMOGLOBIN 26.9 pg (27.0-31.0); MEAN CORPUSCULAR HGB CONC 31.8 g/dL (33.0-37.0); MEAN PLATELET VOLUME 8.8 fL (7.2-11.7); MONO # 0.1 K/uL (0.0-0.8); MONO % 1.7 % (0.0-10.0); NRBC % 0.1 % (0.0-2.0); WHITE BLOOD COUNT 5.8 K/uL (4.8-10.8)
[2016-10-25] MEDS: Enoxaparin 40 mg Syringe SC SCH (09:20)
[2016-10-25] MEDS ORDERED: Pantoprazole 40 mg EC Tab PO SCH (10:00)
[2016-10-25] MEDS: Azithromycin 500 MG in Sodium Chloride 0.9% 250 ML IVPB SCH (11:07)
--- NOTE | 2016-10-25 12:59 | PCM.PSYCH ---
Initial Psychiatric Evaluation - Initial Psychiatric Evaluation Type of Admission: Voluntary Legal Status: Capacity Chief Complaint (in patient's own words): "I need methadone" History of Present Illness and Precipitating Events: The patient is seen, chart reviewed and case discussed. Consultation was requested for patient's opiate use. She is known to the loan underwriter from previous consultations. Patient is a 61 yo homeless AA female single with 4 children, on disability. She is admitted to the hospital for asthma attack. Patient admits to feeling depressed and hearing voices (mostly negative comments). She sometimes feels like people are out to get her. She is off psych meds. She reports shooting 5-6 bags a day. She denies using any other drugs, except for marijuana and cigarettes - a pack of cigarettes daily. She is in opioid wdw as she has NV, tremors, irritability and joint pain, chills , "runs" She is fixated on her brother's alleged cheating her of her disability money and getting a friend in while letting the patient stay homeless. She asks for help for housing and repeatedly says "I need to get my place" She is future oriented but at times claims she may kill herself if she doesn't change things on the outside. Contracts for safety, incl. calling the nurses. Safety plan discussed. Past psych hx: Depression and psychosis. No meds, no admissions and no suicide attempts. Past med hx: HTN, asthma, COPD, CHF, gastritis Current Medications: Active Medications Generic Name Dose Route Start Last Admin Trade Name Freq PRN Reason Stop Dose Admin Acetaminophen 650 mg 10/24/16 16:56 Tylenol 325mg Tab PO Q4H PRN Fever >100.4 F Albuterol/Ipratropium 3 ml 10/24/16 18:00 10/25/16 07:56 Duoneb 3 Mg/0.5 Mg (3 Ml) Ud INH 3 ml RQ6 [facility] Administration Amlodipine Besylate 10 mg 10/25/16 10:00 10/25/16 09:21 Norvasc PO 10 mg DAILY [facility] Administration Aripiprazole 10 mg 10/24/16 22:00 10/24/16 22:58 Abilify PO 10 mg HS [facility] Administration Aspirin 81 mg 10/25/16 10:00 10/25/16 09:20 Ecotrin PO 81 mg DAILY [facility] Administration Enoxaparin Sodium 40 mg 10/24/16 17:30 10/25/16 09:20 Lovenox SC 40 mg DAILY [facility] Administration Hydralazine HCl 10 mg 10/24/16 18:28 10/25/16 09:18 Apresoline IVP 10 mg Q6H PRN Administration Other Azithromycin 500 mg/ Sodium 250 mls @ 250 mls/hr 10/24/16 17:30 10/25/16 11:07 Chloride IVPB 250 mls/hr DAILY [facility] Administration Sodium Chloride 1,000 mls @ 70 mls/hr 10/24/16 17:30 10/24/16 18:03 Sodium Chloride 0.9% IV 70 mls/hr .[id number] [facility] Administration Ceftriaxone Sodium 1 gm/ 100 mls @ 100 mls/hr 10/24/16 17:30 10/25/16 09:35 Sodium Chloride IVPB 100 mls/hr DAILY [facility] Administration Methadone HCl 5 mg 10/24/16 17:28 Methadone PO ONCE PRN Agitation Methadone HCl 10 mg 10/25/16 10:15 10/25/16 10:28 Methadone PO 10/28/16 10:14 10 mg Q24H [facility] Administration Taper Methylprednisolone 40 mg 10/24/16 17:45 10/25/16 11:07 Solu-Medrol IVP 40 mg Q6H [facility] Administration Mirtazapine 30 mg 10/24/16 22:00 10/24/16 23:12 Remeron PO 30 mg HS [facility] Administration Montelukast Sodium 10 mg 10/25/16 22:00 Singulair PO HS [facility] Nicotine 1 patch 10/25/16 10:00 10/25/16 09:20 Nicoderm Cq TD 1 patch DAILY [facility] Administration Ondansetron HCl 4 mg 10/24/16 17:28 10/25/16 09:21 Zofran Inj IVP 4 mg Q6H PRN Administration Nausea/Vomiting Pantoprazole Sodium 40 mg 10/24/16 17:45 10/25/16 09:21 Protonix Inj IVP 40 mg DAILY [facility] Administration Rosuvastatin Calcium 2.5 mg 10/24/16 22:00 10/24/16 22:58 Crestor PO 2.5 mg HS [facility] Administration Past Psychiatric History - Past Psychiatric History Previous Treatment History: None Pertinent Medical Hx (Current Medical&Sleep Prob, Allergies): Allergies Allergy/AdvReac Type Severity Reaction Status Date / Time No Known Allergies Allergy Verified 10/24/16 13:24 traZODone [Desyrel] 50 mg PO HS PRN #0 tab 04/20/15 Acetaminophen [Tylenol 325mg tab] 650 mg PO PRN PRN 07/14/16 ARIPiprazole [Abilify] 10 mg PO HS #0 tab 07/19/16 Aspirin [Ecotrin] 81 mg PO DAILY #0 tabec 07/19/16 Carvedilol [Coreg] 25 mg PO BID #60 tab 07/19/16 Lovastatin 10 mg PO HS #30 tab 07/19/16 Mirtazapine [Remeron] 30 mg PO HS #0 tab 07/19/16 Pantoprazole [Protonix EC Tab] 40 mg PO DAILY #0 ect 07/19/16 amLODIPine [Norvasc] 10 mg PO DAILY #30 tab 07/19/16 predniSONE [Prednisone] 40 mg PO DAILY #10 tab 10/20/16 Review of Systems - Neurological Neurological: Weakness - Psychiatric Psychiatric: Abnormal Sleep Pattern, Anhedonia, Anxiety, Auditory Hallucinations , Change in Appetite, Depression, Difficulty Concentrating, Hallucinations, Irritability, Memory Loss, Mood Swings, Panic Attacks, Paranoia. absent: Homicidal Ideation, Suicidal Ideation Mental Status Examination - Personal Presentation Personal Presentation: Looks older than stated age - Affect Affect: Constricted - Motor Activity Motor Activity: Calm - Reliability in Providing Information Reliability in Providing Information: Fair - Speech Speech: Disorganized - Mood Mood: Depressed, Anxious - Formal Thought Process Formal Thought Process: Hallucinations, Paranoia - Cognitive Functions Orientation: Person, Place, Situation, Time Sensorium: Alert Attention/Concentration: Easily distracted Abstract Thinking: Pilgrim Estimate of Intelligence: Below average Judgement: Imparied, as evidence by: Poor judgement, Intact, as evidence by: Insight regarding need for hospitalization Memory: Recent intact, as evidence by: Ability to recall events of the day, Remote intact, as evidenced by: Abilit to recall sig. life events - Risk Risk: Withdrawal, Diminished functioning - Strength & Assets Inventory Strength & Assets Inventory: Life experience, Cooperative - Limitations Limitations: Living alone DSM 5 DX - DSM 5 DSM 5 Diagnosis: major depressive d/o - recurrent, severe with psychosis opioid withdrawal opioid use d/o - severe r/o borderline intell.disability - Recommended/Plan of Treatment Treatment Recommendations and Plan of Treatment: Abilify for psychosis Remeron for depression Support and psychoeducation for depression Methadone taper for opiate withdrawal As needed medications Refer to IOP Refer to bilingual social worker regarding housing application 32 minutes
[2016-10-25] MEDS: Rosuvastatin Calcium 2.5 mg Tab PO SCH (22:32)
[2016-10-25] MEDS: Sodium Chloride 0.9% 1,000 ML IV SCH (22:38)
[2016-10-26] MEDS: Albuterol-Ipratrop 3 mg / 0.5 (3 ml) UD INH SCH ×4 (01:26→21:21)
[2016-10-26] MEDS: Sodium Chloride 0.9% 1,000 ML IV SCH (02:00)
[2016-10-26] MEDS: MethylPREDNISolone 40 mg Vial IVP SCH ×4 (04:53→23:49)
--- NOTE | 2016-10-26 08:40 | CP.PCM.PN ---
Addendum entered and electronically signed by Torie Davila DO 10/26/16 08 :54: Echo pending to rule out CHF Original Note: <Torie Davila I - Last Filed: 10/26/16 08:40> Subjective - Date & Time of Evaluation Date of Evaluation: 10/26/16 Time of Evaluation: 08:15 - Subjective Subjective: PGY3 on Medicine Service Patient seen and examined at bedside. States that her breathing is bad but is unchanged from before. Also complains of pain in her chest when she coughs and abdominal pain. Denies fevers, chills, palpitations, nausea, vomiting, constipation, diarrhea or headaches. Objective - Vital Signs/Intake and Output Vital Signs (last 24 hours): Temp Pulse Resp BP Pulse Ox 98.5 F 110 H 20 186/95 H 93 L 10/25/16 23:23 10/26/16 02:52 10/25/16 23:23 10/26/16 04:10 10/25/16 23:23 Intake and Output: 10/26/16 10/26/16 06:59 18:59 Intake Total 560 Balance 560 - Medications Medications: Current Medications Acetaminophen (Tylenol 325mg Tab) 650 mg PO Q4H PRN PRN Reason: Fever >100.4 F Albuterol/Ipratropium (Duoneb 3 Mg/0.5 Mg (3 Ml) Ud) 3 ml INH RQ6 [facility] Last Admin: 10/26/16 08:16 Dose: 3 ml Amlodipine Besylate (Norvasc) 10 mg PO DAILY [facility] Last Admin: 10/25/16 09:21 Dose: 10 mg Aripiprazole (Abilify) 10 mg PO HS [facility] Last Admin: 10/25/16 22:33 Dose: 10 mg Aspirin (Ecotrin) 81 mg PO DAILY [facility] Last Admin: 10/25/16 09:20 Dose: 81 mg Enoxaparin Sodium (Lovenox) 40 mg SC DAILY [facility] Last Admin: 10/25/16 09:20 Dose: 40 mg Hydralazine HCl (Apresoline) 10 mg IVP Q6H PRN PRN Reason: Other Last Admin: 10/26/16 01:52 Dose: 10 mg Azithromycin 500 mg/ Sodium (Chloride) 250 mls @ 250 mls/hr IVPB DAILY [facility] Last Admin: 10/25/16 11:07 Dose: 250 mls/hr Sodium Chloride (Sodium Chloride 0.9%) 1,000 mls @ 70 mls/hr IV .[id number] [facility] Last Admin: 10/26/16 02:00 Dose: 70 mls/hr Ceftriaxone Sodium 1 gm/ (Sodium Chloride) 100 mls @ 100 mls/hr IVPB DAILY [facility] Last Admin: 10/25/16 09:35 Dose: 100 mls/hr Methadone HCl (Methadone) 5 mg PO ONCE PRN PRN Reason: Agitation Methadone HCl (Methadone) 10 mg PO Q24H [facility] PRN Reason: Taper Stop: 10/28/16 10:14 Last Admin: 10/25/16 10:28 Dose: 10 mg Methylprednisolone (Solu-Medrol) 40 mg IVP Q6H [facility] Last Admin: 10/26/16 04:53 Dose: 40 mg Mirtazapine (Remeron) 30 mg PO [facility] Last Admin: 10/25/16 22:33 Dose: 30 mg Montelukast Sodium (Singulair) 10 mg PO [facility] Last Admin: 10/25/16 22:33 Dose: 10 mg Nicotine (Nicoderm Cq) 1 patch TD DAILY [facility] Last Admin: 10/25/16 09:20 Dose: 1 patch Ondansetron HCl (Zofran Inj) 4 mg IVP Q6H PRN PRN Reason: Nausea/Vomiting Last Admin: 10/26/16 04:53 Dose: 4 mg Pantoprazole Sodium (Protonix Inj) 40 mg IVP DAILY [facility] Last Admin: 10/25/16 09:21 Dose: 40 mg Rosuvastatin Calcium (Crestor) 2.5 mg PO [facility] Last Admin: 10/25/16 22:32 Dose: 2.5 mg - Labs Labs: 10/25/16 06:28 10/25/16 06:28 - Constitutional Appears: Non-toxic, No Acute Distress - Head Exam Head Exam: ATRAUMATIC, NORMAL INSPECTION, NORMOCEPHALIC - Eye Exam Eye Exam: Normal appearance - ENT Exam ENT Exam: Mucous Membranes Moist - Neck Exam Neck Exam: Full ROM - Respiratory Exam Respiratory Exam: Decreased Breath Sounds, Prolonged Expiratory Phase, Rhonchi. absent: Chest Wall Tenderness, Respiratory Distress - Cardiovascular Exam Cardiovascular Exam: REGULAR RHYTHM, RRR, +S1, +S2 - GI/Abdominal Exam GI & Abdominal Exam: Soft, Normal Bowel Sounds. absent: Tenderness - Extremities Exam Extremities Exam: Normal Inspection, Pedal Edema (trace) - Neurological Exam Neurological Exam: Alert, Oriented x3 - Psychiatric Exam Psychiatric exam: Flat Affect - Skin Skin Exam: Dry, Normal Color, Warm Assessment and Plan - Assessment and Plan (Free Text) Assessment: Acute asthma/COPD exacerbation CXR 10/24: stable b/l lower lobe infiltrates Continue Duoneb 3ml INH Q6 PRN Continue Solumedrol 40mg IVP Q6H Continue Singulair 10 mg po qHS Continue ppx abx for pneumonia: Azithromycin and Rocephin Pulm consult Dr. Flores- f/u recommendations Heroin withdrawal Methadone taper Abilify Remeron UDS positive for opiates- withdrawal is most likely cause of patient's symptoms Psych consult Dr. Enriquez- recommends Abilify for psychosis, Remeron for depression, Support and psychoeducation for depression, Methadone taper for opiate withdrawal and Referrals to IOP and rn social services regarding housing application Hx of hypertension Could be due to withdrawal symptoms Stop IV fluids Blood pressure: 180's/90's this AM Norvasc 10mg po daily Hydralazone 10 mg IVP for SBP >160 ASA 81mg po daily Monitor BP Hx of hyperlipidemia Crestor 2.5mg po daily Hx of b/l PE as per patient records, patient had bilateral PE in April 2015 admission f/u LE dopplers SCD contraindicated PPX Lovenox 40mg SC daily Protonix 40 mg IVP daily Zofran 4mg IVP Q6H PRN Stop NS @ 70cc/hr SCD contraindicated Nicoderm patch <Thaddeus Gannon - Last Filed: 10/26/16 12:55> Objective - Vital Signs/Intake and Output Vital Signs (last 24 hours): Temp Pulse Resp BP Pulse Ox 98.2 F 118 H 40 H 175/91 H 93 L 10/26/16 11:07 10/26/16 11:07 10/26/16 11:07 10/26/16 11:29 10/26/16 11:07 Intake and Output: 10/26/16 10/26/16 06:59 18:59 Intake Total 560 Balance 560 - Medications Medications: Current Medications Acetaminophen (Tylenol 325mg Tab) 650 mg PO Q4H PRN PRN Reason: Fever >100.4 F Albuterol/Ipratropium (Duoneb 3 Mg/0.5 Mg (3 Ml) Ud) 3 ml INH RQ6 [facility] Last Admin: 10/26/16 08:16 Dose: 3 ml Amlodipine Besylate (Norvasc) 10 mg PO DAILY [facility] Last Admin: 10/26/16 09:01 Dose: 10 mg Aripiprazole (Abilify) 10 mg PO HS [facility] Last Admin: 10/25/16 22:33 Dose: 10 mg Aspirin (Ecotrin) 81 mg PO DAILY [facility] Last Admin: 10/26/16 09:01 Dose: 81 mg Enoxaparin Sodium (Lovenox) 40 mg SC DAILY [facility] Last Admin: 10/26/16 09:00 Dose: 40 mg Azithromycin 500 mg/ Sodium (Chloride) 250 mls @ 250 mls/hr IVPB DAILY [facility] Last Admin: 10/26/16 09:04 Dose: 250 mls/hr Ceftriaxone Sodium 1 gm/ (Sodium Chloride) 100 mls @ 100 mls/hr IVPB DAILY [facility] Last Admin: 10/26/16 09:04 Dose: 100 mls/hr Methadone HCl (Methadone) 5 mg PO ONCE PRN PRN Reason: Agitation Methadone HCl (Methadone) 5 mg PO Q24H [facility] PRN Reason: Taper Stop: 10/28/16 10:14 Last Admin: 10/26/16 09:18 Dose: 5 mg Methylprednisolone (Solu-Medrol) 40 mg IVP Q6H [facility] Last Admin: 10/26/16 11:30 Dose: 40 mg Mirtazapine (Remeron) 30 mg PO HS [facility] Last Admin: 10/25/16 22:33 Dose: 30 mg Montelukast Sodium (Singulair) 10 mg PO HS [facility] Last Admin: 10/25/16 22:33 Dose: 10 mg Nicotine (Nicoderm Cq) 1 patch TD DAILY [facility] Last Admin: 10/26/16 09:01 Dose: 1 patch Ondansetron HCl (Zofran Inj) 4 mg IVP Q6H PRN PRN Reason: Nausea/Vomiting Last Admin: 10/26/16 04:53 Dose: 4 mg Pantoprazole Sodium (Protonix Inj) 40 mg IVP DAILY [facility] Last Admin: 10/26/16 09:00 Dose: 40 mg Rosuvastatin Calcium (Crestor) 2.5 mg PO HS [facility] Last Admin: 10/25/16 22:32 Dose: 2.5 mg Trazodone HCl (Desyrel) 100 mg PO HS [facility] - Labs Labs: 10/25/16 06:28 10/25/16 06:28 Attending/Attestation - Attestation I have personally seen and examined this patient.: Yes I have fully participated in the care of the patient.: Yes I have reviewed all pertinent clinical information, including history, physical exam and plan: Yes Notes (Text): 10/26/16 12:54 Patient was seen and examined at bedside Complains of for wheezing and abdominal pain Abdominal pain is likely secondary to withdrawal symptoms However will obtain an ultrasound of the abdomen to rule out any intra- abdominal pathology. We will continue steroids and nebulizing treatment for COPD/asthma. Patient is on methadone for heroin withdrawal. Psych and pulmonary on board I discussed the plan of care with the resident and agree with the above history and physical and assessment/plan but the resident.
[2016-10-26] MEDS: Enoxaparin 40 mg Syringe SC SCH (09:00)
[2016-10-26] MEDS: Azithromycin 500 MG in Sodium Chloride 0.9% 250 ML IVPB SCH (09:04)
[2016-10-26] MEDS ORDERED: Metoprolol 1 mg/ml Inj IVP ONE (11:11)
[2016-10-26] MEDS ORDERED: Nitroglycerin 2% Ointment Foilpak UD TOP PRN (11:12)
--- NOTE | 2016-10-26 11:56 | PCM.PYCHPN ---
Psychiatric Progress Note - Psychiatric Progress Note Patient seen today, length of contact: 15 min Patient Chief Complaint: "I am very tired, couldn't sleep" Problems Identified/Issues Discussed: The patient is seen, chart reviewed and case discussed. No new symptoms. Withdrawal is under control with methadone. Still somewhat odd, depressed and anxious. Support given, how to deal with symptoms discussed. Medication Change: Yes (Add sleeping pill) Medical Record Reviewed: Yes Mental Status Examination - Cognitive Function Orientation: Person, Place, Situation, Time Memory: Impaired Attention: Poor Concentration: Poor Association: WNL Fund of Knowledge: Poor - Mood Mood: Depressed, Anxious - Affect Affect: Constricted - Speech Speech: Soft - Formal Thought Process Formal Thought Process: Hallucinations (Less today), Paranoia - Suicidal Ideation Suicidal Ideation: No - Homicidal Ideation Homicidal Ideation: No Goal/Treatment Plan - Goal/Treatment Plan Need for Continued Stay: Severe functional impairment, Other (Medical clearance) Progress Toward Problem(s) and Goals/Treatment Plan: Abilify for psychosis Remeron for depression Trazodone for sleep Support and psychoeducation for depression Methadone taper for opiate withdrawal As needed medications Refer to IOP Refer to secondary social studies teacher regarding housing application
[2016-10-26 13:47] LABS: CHLORIDE 98 mmol/L (98-107); POTASSIUM 3.7 mmol/L (3.6-5.2); SODIUM 138 mmol/L (132-148)
[2016-10-26 13:48] LABS: BASO % 0.2 % (0.0-2.0); EOS % 0.1 % (0.0-4.0); HEMATOCRIT 50.2 % (34.0-47.0); LYMPH # 0.5 K/uL (1.0-4.3); LYMPH % 7.5 % (20.0-40.0); MEAN CELL VOLUME 84.6 fL (81.0-99.0); MEAN CORPUSCULAR HEMOGLOBIN 26.4 pg (27.0-31.0); MEAN CORPUSCULAR HGB CONC 31.2 g/dL (33.0-37.0); MEAN PLATELET VOLUME 9.1 fL (7.2-11.7); MONO # 0.2 K/uL (0.0-0.8); MONO % 2.9 % (0.0-10.0); NRBC % 0.3 % (0.0-2.0); PLATELET COUNT 256 K/uL (130-400); RED CELL DISTRIBUTION WIDTH 18.2 % (11.5-14.5); WHITE BLOOD COUNT 7.3 K/uL (4.8-10.8)
[2016-10-26 13:49] LABS: ALB/GLOB RATIO 1.1 (1.0-2.1); ALKALINE PHOSPHATASE 94 U/L (38-126); AST/SGOT 20 U/L (14-36); BILIRUBIN,TOTAL 0.9 mg/dL (0.2-1.3); CARBON DIOXIDE 26 mmol/L (22-30); GFR AFRICAN-AMERICAN > 60; TOTAL PROTEIN 7.4 g/dL (6.3-8.3)
[2016-10-26 13:50] LABS: ALT/SGPT 23 U/L (9-52); BLOOD UREA NITROGEN 20 mg/dL (7-17); CALCIUM 9.7 mg/dl (8.6-10.4); GLUCOSE,RANDOM 137 mg/dL (65-105); MAGNESIUM 2.2 mg/dL (1.6-2.3); PHOSPHOROUS 2.3 mg/dL (2.5-4.5)
[2016-10-26 14:27] LABS: NEUTROPHIL 86 % (50-75); REACTIVE LYMPHOCYTES 1 % (0-0); TOTAL CELLS COUNTED 100
[2016-10-26 14:28] LABS: LARGE PLATELETS PRESENT
[2016-10-26] MEDS: Rosuvastatin Calcium 2.5 mg Tab PO SCH (22:05)
[2016-10-27] MEDS: Albuterol-Ipratrop 3 mg / 0.5 (3 ml) UD INH SCH ×4 (01:06→19:41)
[2016-10-27] MEDS: MethylPREDNISolone 40 mg Vial IVP SCH ×4 (05:15→23:01)
[2016-10-27 06:28] LABS: BASO # 0.1 K/uL (0.0-0.2); HEMATOCRIT 51.2 % (34.0-47.0); LYMPH # 0.5 K/uL (1.0-4.3); LYMPH % 8.8 % (20.0-40.0); MEAN CELL VOLUME 83.6 fL (81.0-99.0); MEAN CORPUSCULAR HGB CONC 32.3 g/dL (33.0-37.0); MEAN PLATELET VOLUME 8.9 fL (7.2-11.7); MONO # 0.2 K/uL (0.0-0.8); MONO % 2.8 % (0.0-10.0); NRBC % 0.1 % (0.0-2.0); PLATELET COUNT 258 K/uL (130-400); RED CELL DISTRIBUTION WIDTH 17.6 % (11.5-14.5); WHITE BLOOD COUNT 5.8 K/uL (4.8-10.8)
[2016-10-27 06:35] LABS: POTASSIUM 3.6 mmol/L (3.6-5.2)
[2016-10-27 06:38] LABS: ALB/GLOB RATIO 1.1 (1.0-2.1); BILIRUBIN,TOTAL 1.2 mg/dL (0.2-1.3); CALCIUM 9.6 mg/dl (8.6-10.4); PHOSPHOROUS 3.3 mg/dL (2.5-4.5); TOTAL PROTEIN 7.4 g/dL (6.3-8.3)
[2016-10-27 06:39] LABS: MAGNESIUM 2.1 mg/dL (1.6-2.3)
--- NOTE | 2016-10-27 07:13 | CON ---
DATE: 10/25/2016 The patient admitted to the hospital with chief complaint of weakness, fatigue, tiredness, substance abuse, wheezing, heroin abuse. The patient is a heavy smoker. PHYSICAL EXAMINATION: GENERAL: The patient is awake, alert, oriented. VITAL SIGNS: Temperature 98, pulse 90. HEENT: Within normal limits. NECK: Supple. CHEST: Symmetrical. HEART: Regular. ABDOMEN: Soft. EXTREMITIES: No edema. The patient suffers from exacerbation of chronic obstructive pulmonary disease, bronchitis, . T he patient will get bedrest, bronchodilator. Finding on the x-ray probably revealed old disease, pos sible drug use in the past. Nikki Manzo MD cc: [id number] TT: 10/26/2016 08:55:30 Confirmation # [id number] Dictation # [id number]
--- NOTE | 2016-10-27 09:55 | US ---
HISTORY: Abdominal pain COMPARISON: None. TECHNIQUE: Sonographic evaluation of the abdomen. FINDINGS: LIVER: Measures 16.2 cm. There is mild diffuse increased echogenicity of the liver parenchyma. No mass. No intrahepatic bile duct dilatation. GALLBLADDER: Surgically absent. COMMON BILE DUCT: Measures 5.0 mm. No stones. No dilatation. PANCREAS: Unremarkable as visualized. No mass. No ductal dilatation. RIGHT KIDNEY: Measures 10.9cm. Normal echogenicity. No calculus, mass, or hydronephrosis. LEFT KIDNEY: Measures 10.3cm. Normal echogenicity. No calculus, mass, or hydronephrosis. SPLEEN: Normal in size and contour. No mass. AORTA: No aneurysmal dilatation. IVC: Unremarkable. OTHER FINDINGS: None. IMPRESSION: Hepatic steatosis.
[2016-10-27 10:03] LABS: NEUTROPHIL 85 % (50-75); TOTAL CELLS COUNTED 100
[2016-10-27 10:04] LABS: LARGE PLATELETS PRESENT
[2016-10-27] MEDS: Enoxaparin 40 mg Syringe SC SCH (11:09)
[2016-10-27] MEDS: Azithromycin 500 MG in Sodium Chloride 0.9% 250 ML IVPB SCH (12:15)
--- NOTE | 2016-10-27 14:39 | CP.PCM.PN ---
<Tina Smith - Last Filed: 10/27/16 14:36> Subjective - Date & Time of Evaluation Date of Evaluation: 10/27/16 Time of Evaluation: 09:30 - Subjective Subjective: Internal medicine progress note for Dr. James- Tina Smith, PGY-1 Pt S & E at bedside. Pt with lethargy at bedside, did not sleep well last night, SOB improved, pt reports lack of appetite - has this when doing detox, reports palpitations, some nausea, diarrhea. Denies emesis, fevers, chills, CP, abdominal pain. Reports using 6-7 bags of heroin/day. Objective - Vital Signs/Intake and Output Vital Signs (last 24 hours): Temp Pulse Resp BP Pulse Ox 98.3 F 115 H 18 163/91 H 94 L 10/27/16 07:20 10/27/16 08:30 10/27/16 07:20 10/27/16 07:20 10/27/16 07:20 - Medications Medications: Current Medications Acetaminophen (Tylenol 325mg Tab) 650 mg PO Q4H PRN PRN Reason: Fever >100.4 F Albuterol/Ipratropium (Duoneb 3 Mg/0.5 Mg (3 Ml) Ud) 3 ml INH RQ6 [facility] Last Admin: 10/27/16 08:46 Dose: Not Given Amlodipine Besylate (Norvasc) 10 mg PO DAILY [facility] Last Admin: 10/27/16 11:09 Dose: 10 mg Aripiprazole (Abilify) 10 mg PO HS [facility] Last Admin: 10/26/16 22:05 Dose: 10 mg Aspirin (Ecotrin) 81 mg PO DAILY [facility] Last Admin: 10/27/16 11:09 Dose: 81 mg Enoxaparin Sodium (Lovenox) 40 mg SC DAILY [facility] Last Admin: 10/27/16 11:09 Dose: 40 mg Azithromycin 500 mg/ Sodium (Chloride) 250 mls @ 250 mls/hr IVPB DAILY [facility] Last Admin: 10/27/16 12:15 Dose: 250 mls/hr Ceftriaxone Sodium 1 gm/ (Sodium Chloride) 100 mls @ 100 mls/hr IVPB DAILY [facility] Last Admin: 10/27/16 11:10 Dose: 100 mls/hr Methadone HCl (Methadone) 5 mg PO Q24H [facility] PRN Reason: Taper Stop: 10/28/16 11:14 Methylprednisolone (Solu-Medrol) 20 mg IVP Q6H [facility] Mirtazapine (Remeron) 30 mg PO [facility] Last Admin: 10/26/16 22:05 Dose: 30 mg Montelukast Sodium (Singulair) 10 mg PO [facility] Last Admin: 10/26/16 22:05 Dose: 10 mg Nicotine (Nicoderm Cq) 1 patch TD DAILY [facility] Last Admin: 10/27/16 11:09 Dose: 1 patch Ondansetron HCl (Zofran Inj) 4 mg IVP Q6H PRN PRN Reason: Nausea/Vomiting Last Admin: 10/26/16 04:53 Dose: 4 mg Pantoprazole Sodium (Protonix Inj) 40 mg IVP DAILY [facility] Last Admin: 10/27/16 11:10 Dose: 40 mg Rosuvastatin Calcium (Crestor) 2.5 mg PO [facility] Last Admin: 10/26/16 22:05 Dose: 2.5 mg Trazodone HCl (Desyrel) 100 mg PO [facility] Last Admin: 10/26/16 22:05 Dose: 100 mg - Constitutional Appears: Non-toxic, No Acute Distress, Other (lethargic) - Head Exam Head Exam: ATRAUMATIC, NORMAL INSPECTION, NORMOCEPHALIC - Eye Exam Eye Exam: EOMI, Normal appearance, PERRL. absent: Scleral icterus Pupil Exam: NORMAL ACCOMODATION, PERRL - ENT Exam ENT Exam: Mucous Membranes Moist, Normal Exam - Neck Exam Neck Exam: Full ROM, Normal Inspection - Respiratory Exam Respiratory Exam: Wheezes (mild, B/L), NORMAL BREATHING PATTERN. absent: Clear to Ausculation Bilateral, Rales, Rhonchi, Respiratory Distress, Stridor - Cardiovascular Exam Cardiovascular Exam: Tachycardia, +S1, +S2 - GI/Abdominal Exam GI & Abdominal Exam: Soft, Normal Bowel Sounds. absent: Distended (obese), Tenderness - Extremities Exam Extremities Exam: Normal Capillary Refill, Normal Inspection. absent: Joint Swelling, Pedal Edema, Tenderness - Neurological Exam Neurological Exam: Awake, Oriented x3 Additional comments: sleepy during interview - Psychiatric Exam Psychiatric exam: Normal Affect, Normal Mood - Skin Skin Exam: Dry, Intact, Normal Color, Warm Assessment and Plan - Assessment and Plan (Free Text) Assessment: Acute asthma/COPD exacerbation CXR 10/24: stable b/l lower lobe infiltrates Cont Duoneb 3ml INH Q6 PRN Cont Solumedrol 40mg IVP Q6H changed to 20mg Q6H Cont Singulair 10 mg po qHS Cont ppx abx for pneumonia: Azithromycin and Rocephin Pulm recs- bronchodilators Heroin withdrawal UDS pos for opiates only Methadone taper Abilify Remeron UDS positive for opiates- withdrawal is most likely cause of patient's symptoms Psych recs: Abilify for psychosis, Remeron for depression, Trazadone for sleep, suppor & psychoeducation for depression, Methadone taper for opiate w/drawal, SW for housing issues STEFANIE BUN 28 from 20 Cr 1.3 from 1 Monitor Will consider IVF if BP WNL Abdominal pain No leuokocytosis Ab U/S w/hepatitic steatosis Monitor Hx of hypertension Could be due to withdrawal symptoms Blood pressure: 163/91 Norvasc 10mg po daily Hydralazone 10 mg IVP for SBP >160 ASA 81mg po daily Monitor BP Hx of hyperlipidemia Crestor 2.5mg po daily Hx of b/l PE as per patient records, patient had bilateral PE in April 2015 admission f/u LE dopplers- pending SCD contraindicated PPX Lovenox 40mg SC daily Protonix 40 mg IVP daily Zofran 4mg IVP Q6H PRN SCD contraindicated Nicoderm patch Dispo Cont med mgmt Cont psych mgmt SW eval for housing issues DW attending <Todd James H - Last Filed: 10/27/16 14:51> Objective - Vital Signs/Intake and Output Vital Signs (last 24 hours): Temp Pulse Resp BP Pulse Ox 98.3 F 115 H 18 163/91 H 94 L 10/27/16 07:20 10/27/16 08:30 10/27/16 07:20 10/27/16 07:20 10/27/16 07:20 - Medications Medications: Current Medications Acetaminophen (Tylenol 325mg Tab) 650 mg PO Q4H PRN PRN Reason: Fever >100.4 F Albuterol/Ipratropium (Duoneb 3 Mg/0.5 Mg (3 Ml) Ud) 3 ml INH RQ6 [facility] Last Admin: 10/27/16 08:46 Dose: Not Given Amlodipine Besylate (Norvasc) 10 mg PO DAILY [facility] Last Admin: 10/27/16 11:09 Dose: 10 mg Aripiprazole (Abilify) 10 mg PO HS [facility] Last Admin: 10/26/16 22:05 Dose: 10 mg Aspirin (Ecotrin) 81 mg PO DAILY [facility] Last Admin: 10/27/16 11:09 Dose: 81 mg Enoxaparin Sodium (Lovenox) 40 mg SC DAILY [facility] Last Admin: 10/27/16 11:09 Dose: 40 mg Azithromycin 500 mg/ Sodium (Chloride) 250 mls @ 250 mls/hr IVPB DAILY [facility] Last Admin: 10/27/16 12:15 Dose: 250 mls/hr Ceftriaxone Sodium 1 gm/ (Sodium Chloride) 100 mls @ 100 mls/hr IVPB DAILY [facility] Last Admin: 10/27/16 11:10 Dose: 100 mls/hr Methadone HCl (Methadone) 5 mg PO Q24H [facility] PRN Reason: Taper Stop: 10/28/16 11:14 Methylprednisolone (Solu-Medrol) 20 mg IVP Q6H [facility] Mirtazapine (Remeron) 30 mg PO HS [facility] Last Admin: 10/26/16 22:05 Dose: 30 mg Montelukast Sodium (Singulair) 10 mg PO HS [facility] Last Admin: 10/26/16 22:05 Dose: 10 mg Nicotine (Nicoderm Cq) 1 patch TD DAILY [facility] Last Admin: 10/27/16 11:09 Dose: 1 patch Ondansetron HCl (Zofran Inj) 4 mg IVP Q6H PRN PRN Reason: Nausea/Vomiting Last Admin: 10/26/16 04:53 Dose: 4 mg Pantoprazole Sodium (Protonix Inj) 40 mg IVP DAILY [facility] Last Admin: 10/27/16 11:10 Dose: 40 mg Rosuvastatin Calcium (Crestor) 2.5 mg PO [facility] Last Admin: 10/26/16 22:05 Dose: 2.5 mg Trazodone HCl (Desyrel) 100 mg PO [facility] Last Admin: 10/26/16 22:05 Dose: 100 mg Attending/Attestation - Attestation I have personally seen and examined this patient.: Yes I have fully participated in the care of the patient.: Yes I have reviewed all pertinent clinical information, including history, physical exam and plan: Yes Notes (Text): Medical attending: Patient was seen and examined by me, agrees the above note by medical lab tech instructor. This is a patient that is known to the hospitalist service from previous admission. She explains to us that she's been using about 6-7 bags of heroin via snorting she says a day. When we saw her today she explains that her breathing seemed to have improved from before. However she reports a lot of depression. On exam she had very minimal wheezing, from my discussion with the patient as well as the medical staff this is improvement before and so were to decrease the IV Solu-Medrol. In the meantime her continuing the Singulair as well as duo nebs. Thank you very much, Todd James
--- NOTE | 2016-10-27 16:10 | PCM.PYCHPN ---
Psychiatric Progress Note - Psychiatric Progress Note Patient seen today, length of contact: 15 min Patient Chief Complaint: Follow-up Problems Identified/Issues Discussed: The patient is seen, chart reviewed and case discussed. No new symptoms. Pt. states that her mood is so-so. Pt. reports that she still hears voices "a little bit." Denies suicidal ideation. Pt. does not express any other complaints , nor does Pt. express any adverse effects of the medications. Medication Change: No Medical Record Reviewed: Yes Mental Status Examination - Cognitive Function Orientation: Person, Place, Situation, Time Memory: Impaired Attention: Poor Concentration: Poor Association: WNL Fund of Knowledge: Poor - Mood Mood: Depressed, Anxious - Affect Affect: Constricted - Speech Speech: Soft - Formal Thought Process Formal Thought Process: Hallucinations (Less today), Paranoia - Suicidal Ideation Suicidal Ideation: No - Homicidal Ideation Homicidal Ideation: No Goal/Treatment Plan - Goal/Treatment Plan Need for Continued Stay: Severe functional impairment, Other (Medical clearance) Progress Toward Problem(s) and Goals/Treatment Plan: Abilify for psychosis Remeron for depression Trazodone for sleep Support and psychoeducation for depression As needed medications Refer to IOP Refer to healthcare social worker regarding housing application
[2016-10-27] MEDS: Rosuvastatin Calcium 2.5 mg Tab PO SCH (23:02)
[2016-10-28] MEDS: Albuterol-Ipratrop 3 mg / 0.5 (3 ml) UD INH SCH ×4 (01:14→20:54)
[2016-10-28] MEDS: MethylPREDNISolone 40 mg Vial IVP SCH ×3 (05:11→22:23)
--- NOTE | 2016-10-28 07:59 | CARD ---
APPROVED REPORT EKG Measurement Heart [id number] <Conclusion> Sinus tachycardia Biatrial enlargement Left axis deviation Left bundle branch block Abnormal ECG
[2016-10-28] MEDS: Enoxaparin 40 mg Syringe SC SCH (10:37)
[2016-10-28] MEDS: Azithromycin 500 MG in Sodium Chloride 0.9% 250 ML IVPB SCH (11:48)
--- NOTE | 2016-10-28 12:45 | VASCLAB ---
PROCEDURE: Lower Extremity Venous Duplex Exam. HISTORY: Shortness of breath PRIORS: Last exam 03/27/2015 TECHNIQUE: Bilateral common femoral, femoral, popliteal and posterior tibial, peroneal and great saphenous veins were evaluated. Flow was assessed with color Doppler, compressibility, assessment of phasic flow and augmentation response. Report prepared by JORGE Plaza FINDINGS: RIGHT: 1. Common Femoral Vein: 1.1. Compressibility - Fully compressible: Thrombus - None : Flow - Phasic: Augmentation -Normal: Reflux - None. 2. Femoral Vein: 2.1. Compressibility - Fully compressible: Thrombus - None : Flow - Phasic: Augmentation -Normal: Reflux - None. 3. Popliteal Vein: 3.1. Compressibility - Fully compressible: Thrombus - None : Flow - Phasic: Augmentation -Normal: Reflux - None. 4. Posterior Tibial Vein: 4.1. Compressibility - Fully compressible: Thrombus - None: Flow - Phasic: Augmentation -Normal: Reflux - None. 5. Peroneal Vein: 5.1. Compressibility - Fully compressible: Thrombus - None: Flow - Phasic: Augmentation -Normal: Reflux - None. 6. Great Saphenous Vein: 6.1. Compressibility - Fully compressible: Thrombus - None: Flow - Phasic: Augmentation - Normal: Reflux - None. LEFT: 1. Common Femoral Vein: 1.1. Compressibility - Fully compressible: Thrombus - None: Flow - Phasic: Augmentation -Normal: Reflux - None. 2. Femoral Vein: 2.1. Compressibility - Fully compressible: Thrombus - None: Flow - Phasic: Augmentation -Normal: Reflux - None. 3. Popliteal Vein: 3.1. Compressibility - Fully compressible: Thrombus - None : Flow - Phasic: Augmentation -Normal: Reflux - None. 4. Posterior Tibial Vein: 4.1. Compressibility - Fully compressible: Thrombus - None: Flow - Phasic: Augmentation -Normal: Reflux - None. 5. Peroneal Vein: 5.1. Compressibility - Fully compressible: Thrombus - None: Flow - Phasic: Augmentation -Normal: Reflux - None. 6. Great Saphenous Vein: 6.1. Compressibility - Fully compressible: Thrombus - None: Flow - Phasic: Augmentation - Normal: Reflux - None. OTHER FINDINGS: Right: None significant. Left: None significant. IMPRESSION: Right: No evidence of deep or superficial vein thrombosis of the right lower extremity. Normal valve function noted of the right side. Left: No evidence of deep or superficial vein thrombosis of the left lower extremity. Normal valve function noted of the left side.
--- NOTE | 2016-10-28 14:25 | PCM.PYCHPN ---
Psychiatric Progress Note - Psychiatric Progress Note Patient seen today, length of contact: 15 min Patient Chief Complaint: Follow-up Problems Identified/Issues Discussed: The patient is seen, chart reviewed and case discussed. Pt. reports she is "feeling much better," although she also reports not sleeping well last night. Pt. also states that she feels depressed but she's alright. Pt. denies hallucinations as well as suicidal ideation. Pt. does not express any other complaints, nor does Pt. express any adverse effects of the medications. Pt is encouraged to remain compliant w/ medications. Pt. states that she plans to live w/ her brother if they are able to resolve a conflict, however, she is also encouraged to consider alternate living arrangements. Medication Change: No Medical Record Reviewed: Yes Mental Status Examination - Cognitive Function Orientation: Person, Place, Situation, Time Memory: Impaired Attention: WNL Concentration: WNL Association: WNL Fund of Knowledge: Poor - Mood Mood: Depressed, Anxious - Affect Affect: Constricted - Speech Speech: Appropriate - Suicidal Ideation Suicidal Ideation: No - Homicidal Ideation Homicidal Ideation: No Goal/Treatment Plan - Goal/Treatment Plan Need for Continued Stay: Severe functional impairment, Other (Medical clearance) Progress Toward Problem(s) and Goals/Treatment Plan: Abilify for psychosis Remeron for depression Trazodone for sleep Support and psychoeducation for depression As needed medications Refer to IOP Refer to clinical social work aide regarding housing application
--- NOTE | 2016-10-28 15:04 | CP.PCM.PN ---
<Tnia Smith - Last Filed: 10/28/16 15:01> Subjective - Date & Time of Evaluation Date of Evaluation: 10/28/16 Time of Evaluation: 06:55 - Subjective Subjective: Internal medicine progress note for Dr. James- Tina Smith, PGY-1 Pt S & E at bedside. Pt reports feeling shaky, but with improved SOB, slept poorly. Denies N/V/F/C, CP, abdominal pain, LE pain. Reports lack of appetite. Objective - Vital Signs/Intake and Output Vital Signs (last 24 hours): Temp Pulse Resp BP Pulse Ox 97.5 F L 116 H 18 154/98 H 91 L 10/28/16 07:25 10/28/16 13:12 10/28/16 07:25 10/28/16 07:25 10/28/16 07:25 - Medications Medications: Current Medications Acetaminophen (Tylenol 325mg Tab) 650 mg PO Q4H PRN PRN Reason: Fever >100.4 F Albuterol/Ipratropium (Duoneb 3 Mg/0.5 Mg (3 Ml) Ud) 3 ml INH RQ6 [facility] Last Admin: 10/28/16 13:58 Dose: 3 ml Amlodipine Besylate (Norvasc) 10 mg PO DAILY [facility] Last Admin: 10/28/16 10:38 Dose: 10 mg Aripiprazole (Abilify) 15 mg PO HS [facility] Last Admin: 10/27/16 23:02 Dose: 15 mg Aspirin (Ecotrin) 81 mg PO DAILY [facility] Last Admin: 10/28/16 10:37 Dose: 81 mg Enoxaparin Sodium (Lovenox) 40 mg SC DAILY [facility] Last Admin: 10/28/16 10:37 Dose: 40 mg Azithromycin 500 mg/ Sodium (Chloride) 250 mls @ 250 mls/hr IVPB DAILY [facility] Last Admin: 10/28/16 11:48 Dose: 250 mls/hr Ceftriaxone Sodium 1 gm/ (Sodium Chloride) 100 mls @ 100 mls/hr IVPB DAILY [facility] Last Admin: 10/28/16 10:38 Dose: 100 mls/hr Methylprednisolone (Solu-Medrol) 20 mg IVP Q12H [facility] Mirtazapine (Remeron) 30 mg PO HS [facility] Last Admin: 10/27/16 23:05 Dose: 30 mg Montelukast Sodium (Singulair) 10 mg PO [facility] Last Admin: 10/27/16 23:01 Dose: 10 mg Nicotine (Nicoderm Cq) 1 patch TD DAILY [facility] Last Admin: 10/28/16 10:37 Dose: 1 patch Ondansetron HCl (Zofran Inj) 4 mg IVP Q6H PRN PRN Reason: Nausea/Vomiting Last Admin: 10/26/16 04:53 Dose: 4 mg Pantoprazole Sodium (Protonix Inj) 40 mg IVP DAILY [facility] Last Admin: 10/28/16 10:38 Dose: 40 mg Rosuvastatin Calcium (Crestor) 2.5 mg PO [facility] Last Admin: 10/27/16 23:02 Dose: 2.5 mg Trazodone HCl (Desyrel) 100 mg PO [facility] Last Admin: 10/27/16 23:07 Dose: 100 mg - Constitutional Appears: Non-toxic, No Acute Distress - Head Exam Head Exam: ATRAUMATIC, NORMAL INSPECTION, NORMOCEPHALIC - Eye Exam Eye Exam: EOMI, Normal appearance, PERRL Pupil Exam: NORMAL ACCOMODATION, PERRL - ENT Exam ENT Exam: Mucous Membranes Moist, Normal Exam - Neck Exam Neck Exam: Full ROM, Normal Inspection. absent: Lymphadenopathy - Respiratory Exam Respiratory Exam: Clear to Ausculation Bilateral, NORMAL BREATHING PATTERN - Cardiovascular Exam Cardiovascular Exam: REGULAR RHYTHM, +S1, +S2. absent: Murmur - GI/Abdominal Exam GI & Abdominal Exam: Soft, Tenderness (diffuse, mild), Normal Bowel Sounds. absent: Distended (obese), Firm, Guarding, Rigid - Extremities Exam Extremities Exam: Normal Inspection. absent: Pedal Edema - Neurological Exam Neurological Exam: Alert, Awake, CN II-XII Intact, Oriented x3 - Psychiatric Exam Psychiatric exam: Normal Affect, Normal Mood - Skin Skin Exam: Dry, Intact, Normal Color, Warm Assessment and Plan - Assessment and Plan (Free Text) Assessment: Acute asthma/COPD exacerbation CXR 10/24: stable b/l lower lobe infiltrates Cont Duoneb 3ml INH Q6 PRN Cont Solumedrol 20mg IVP Q6H changed to Q12H Cont Singulair 10 mg po qHS Cont ppx abx for pneumonia: Azithromycin and Rocephin FU Echo- pending report EKG w/LBBB, Left axis deviation, sinus tachycardia, Biatrial enlargement Pulm recs- bronchodilators Heroin withdrawal UDS pos for opiates only Methadone taper finished Abilify Remeron UDS positive for opiates- withdrawal is most likely cause of patient's symptoms Psych recs: Abilify for psychosis, Remeron for depression, Trazadone for sleep, support & psychoeducation for depression, Methadone taper for opiate w/drawal, SW for housing issues- following STEFANIE Labs on 10/29 Monitor Will consider IVF if BP WNL Abdominal pain- resolved FU AM labs Ab U/S w/hepatitic steatosis Monitor Hx of hypertension Could be due to withdrawal symptoms Blood pressure: 154/98 Norvasc 10mg po daily Hydralazone 10 mg IVP for SBP >160 ASA 81mg po daily Monitor BP Hx of hyperlipidemia Crestor 2.5mg po daily Hx of b/l PE as per patient records, patient had bilateral PE in April 2015 admission B/L LE dopplers- neg SCD contraindicated PPX Lovenox 40mg SC daily Protonix 40 mg IVP daily Zofran 4mg IVP Q6H PRN SCD contraindicated Nicoderm patch Dispo Cont med mgmt Cont psych mgmt SW eval for housing issues DW attending <Todd James H - Last Filed: 10/28/16 16:29> Objective - Vital Signs/Intake and Output Vital Signs (last 24 hours): Temp Pulse Resp BP Pulse Ox 99.2 F 100 H 20 130/87 94 L 10/28/16 15:12 10/28/16 15:12 10/28/16 15:12 10/28/16 15:12 10/28/16 15:12 - Medications Medications: Current Medications Acetaminophen (Tylenol 325mg Tab) 650 mg PO Q4H PRN PRN Reason: Fever >100.4 F Albuterol/Ipratropium (Duoneb 3 Mg/0.5 Mg (3 Ml) Ud) 3 ml INH RQ6 [facility] Last Admin: 10/28/16 13:58 Dose: 3 ml Amlodipine Besylate (Norvasc) 10 mg PO DAILY [facility] Last Admin: 10/28/16 10:38 Dose: 10 mg Aripiprazole (Abilify) 15 mg PO HS [facility] Last Admin: 10/27/16 23:02 Dose: 15 mg Aspirin (Ecotrin) 81 mg PO DAILY [facility] Last Admin: 10/28/16 10:37 Dose: 81 mg Enoxaparin Sodium (Lovenox) 40 mg SC DAILY [facility] Last Admin: 10/28/16 10:37 Dose: 40 mg Azithromycin 500 mg/ Sodium (Chloride) 250 mls @ 250 mls/hr IVPB DAILY [facility] Last Admin: 10/28/16 11:48 Dose: 250 mls/hr Ceftriaxone Sodium 1 gm/ (Sodium Chloride) 100 mls @ 100 mls/hr IVPB DAILY [facility] Last Admin: 10/28/16 10:38 Dose: 100 mls/hr Methylprednisolone (Solu-Medrol) 20 mg IVP Q12 [facility] Mirtazapine (Remeron) 30 mg PO HS [facility] Last Admin: 10/27/16 23:05 Dose: 30 mg Montelukast Sodium (Singulair) 10 mg PO HS [facility] Last Admin: 10/27/16 23:01 Dose: 10 mg Nicotine (Nicoderm Cq) 1 patch TD DAILY [facility] Last Admin: 10/28/16 10:37 Dose: 1 patch Ondansetron HCl (Zofran Inj) 4 mg IVP Q6H PRN PRN Reason: Nausea/Vomiting Last Admin: 10/26/16 04:53 Dose: 4 mg Pantoprazole Sodium (Protonix Inj) 40 mg IVP DAILY [facility] Last Admin: 10/28/16 10:38 Dose: 40 mg Rosuvastatin Calcium (Crestor) 2.5 mg PO HS [facility] Last Admin: 10/27/16 23:02 Dose: 2.5 mg Trazodone HCl (Desyrel) 100 mg PO [facility] Last Admin: 10/27/16 23:07 Dose: 100 mg Attending/Attestation - Attestation I have personally seen and examined this patient.: Yes I have fully participated in the care of the patient.: Yes I have reviewed all pertinent clinical information, including history, physical exam and plan: Yes Notes (Text): 10/28/16 16:27 Medical attending: Patient was seen and examined by me, agrees the above note by medical transcription radiology. The patient was not under any acute distress when we saw her, at this time were still pending on echo to be read as well as the lower extremity Dopplers Her breathing is stable today she is not actively short of breath, were slowly decreasing her Solu-Medrol. 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 The methadone taper is almost completed now We should also try to get PT and OT evaluation as well. Thank you very much, Todd James
[2016-10-28 16:09] VITALS: RESP 20
--- NOTE | 2016-10-28 18:51 | CARD ---
APPROVED REPORT EXAM: Two-dimensional and M-mode echocardiogram with Doppler and color Doppler. Other Information Quality : AverageRhythm : NSR INDICATION Pulmonary Embolism Congestive Heart Failure COPD TB, HEROINE ABUSE, ASTHMA EXACERBATION, POSSIBLE CHF RISK FACTORS Hypertension M-Mode DIMENSIONS RVDd1.69 (2.1-3.2cm)Left Atrium (MM)3.06 (2.5-4.0cm) IVSd2.47 (0.7-1.1cm)Aortic Root3.29 (2.2-3.7cm) LVDd3.38 (4.0-5.6cm)Aortic Cusp Exc.2.34 (1.5-2.0cm) PWd1.14 (0.7-1.1cm)FS (%) 38 % LVDs2.12 (2.0-3.8cm)LVEF (%)69 (>50%) Mitral Valve MV E [id number]/sE/A ratio0.0 TDI E/Lateral E'0.0E/Medial E'0.0 Tricuspid Valve TR Peak [id number]/sTR Peak [id number] LEFT VENTRICLE The left ventricle is normal size. There is normal left ventricular wall thickness. The left ventricular function is normal. The left ventricular ejection fraction is within the normal range. There is normal LV segmental wall motion. The left ventricular diastolic function is normal. RIGHT VENTRICLE The right ventricle is normal size. ATRIA The left atrium size is normal. The right atrium size is normal. AORTIC VALVE The aortic valve is normal in structure. MITRAL VALVE The mitral valve is normal in structure. TRICUSPID VALVE There is mild tricuspid regurgitation. <Conclusion> Normal LV systolic function. Normal chamber size. Mild TR.
[2016-10-28] MEDS: Rosuvastatin Calcium 2.5 mg Tab PO SCH (22:39)
[2016-10-29] MEDS: Albuterol-Ipratrop 3 mg / 0.5 (3 ml) UD INH SCH ×4 (01:56→19:56)
[2016-10-29 06:23] LABS: CHLORIDE 95 mmol/L (98-107); POTASSIUM 4.2 mmol/L (3.6-5.2); SODIUM 132 mmol/L (132-148)
[2016-10-29 06:24] LABS: BASO % 0.1 % (0.0-2.0); HEMATOCRIT 49.8 % (34.0-47.0); LYMPH % 12.6 % (20.0-40.0); MEAN CORPUSCULAR HEMOGLOBIN 26.4 pg (27.0-31.0); MEAN CORPUSCULAR HGB CONC 31.4 g/dL (33.0-37.0); MEAN PLATELET VOLUME 8.5 fL (7.2-11.7); MONO # 0.3 K/uL (0.0-0.8); MONO % 3.6 % (0.0-10.0); RED CELL DISTRIBUTION WIDTH 17.9 % (11.5-14.5); WHITE BLOOD COUNT 7.6 K/uL (4.8-10.8)
[2016-10-29 06:25] LABS: ALB/GLOB RATIO 1.2 (1.0-2.1); ALKALINE PHOSPHATASE 56 U/L (38-126); ALT/SGPT 16 U/L (9-52); AST/SGOT 12 U/L (14-36); BILIRUBIN,TOTAL 0.7 mg/dL (0.2-1.3); BLOOD UREA NITROGEN 32 mg/dL (7-17); CARBON DIOXIDE 26 mmol/L (22-30); GFR AFRICAN-AMERICAN > 60; TOTAL PROTEIN 5.8 g/dL (6.3-8.3)
[2016-10-29 06:26] LABS: CALCIUM 8.7 mg/dl (8.6-10.4); GLUCOSE,RANDOM 108 mg/dL (65-105); MAGNESIUM 1.9 mg/dL (1.6-2.3); PHOSPHOROUS 3.2 mg/dL (2.5-4.5)
[2016-10-29] MEDS: Azithromycin 500 MG in Sodium Chloride 0.9% 250 ML IVPB SCH (10:00)
[2016-10-29] MEDS: Enoxaparin 40 mg Syringe SC SCH (11:00)
[2016-10-29] MEDS: MethylPREDNISolone 40 mg Vial IVP SCH (11:00)
--- NOTE | 2016-10-29 15:47 | CP.PCM.PN ---
<Tina Smith - Last Filed: 10/29/16 15:42> Subjective - Date & Time of Evaluation Date of Evaluation: 10/29/16 Time of Evaluation: 09:40 - Subjective Subjective: Internal medicine progress note for Dr. James- Tina Smith, PGY-1 Pt S & E at bedside. Pt reports she has not slept, is now eating. Denies N/V/F/C, SOB, CP, abdominal pain, shaking. Is not ambulating- pt encouraged to do so. Objective - Vital Signs/Intake and Output Vital Signs (last 24 hours): Temp Pulse Resp BP Pulse Ox 99.5 F 95 H 20 144/83 91 L 10/29/16 07:25 10/29/16 07:30 10/29/16 07:25 10/29/16 07:25 10/29/16 07:25 - Medications Medications: Current Medications Acetaminophen (Tylenol 325mg Tab) 650 mg PO Q4H PRN PRN Reason: Fever >100.4 F Albuterol/Ipratropium (Duoneb 3 Mg/0.5 Mg (3 Ml) Ud) 3 ml INH RQ6 [facility] Last Admin: 10/29/16 13:26 Dose: Not Given Amlodipine Besylate (Norvasc) 10 mg PO DAILY [facility] Last Admin: 10/29/16 11:00 Dose: 10 mg Aripiprazole (Abilify) 15 mg PO HS [facility] Last Admin: 10/28/16 22:39 Dose: 15 mg Aspirin (Ecotrin) 81 mg PO DAILY [facility] Last Admin: 10/29/16 11:00 Dose: 81 mg Enoxaparin Sodium (Lovenox) 40 mg SC DAILY [facility] Last Admin: 10/29/16 11:00 Dose: 40 mg Azithromycin 500 mg/ Sodium (Chloride) 250 mls @ 250 mls/hr IVPB DAILY [facility] Last Admin: 10/29/16 10:00 Dose: 250 mls/hr Ceftriaxone Sodium 1 gm/ (Sodium Chloride) 100 mls @ 100 mls/hr IVPB DAILY [facility] Last Admin: 10/29/16 10:00 Dose: 100 mls/hr Methylprednisolone (Solu-Medrol) 10 mg IVP Q12H [facility] Mirtazapine (Remeron) 30 mg PO HS [facility] Last Admin: 10/28/16 22:39 Dose: 30 mg Montelukast Sodium (Singulair) 10 mg PO [facility] Last Admin: 10/28/16 22:39 Dose: 10 mg Nicotine (Nicoderm Cq) 1 patch TD DAILY [facility] Last Admin: 10/29/16 11:00 Dose: 1 patch Ondansetron HCl (Zofran Inj) 4 mg IVP Q6H PRN PRN Reason: Nausea/Vomiting Last Admin: 10/26/16 04:53 Dose: 4 mg Pantoprazole Sodium (Protonix Inj) 40 mg IVP DAILY [facility] Last Admin: 10/29/16 11:00 Dose: 40 mg Rosuvastatin Calcium (Crestor) 2.5 mg PO [facility] Last Admin: 10/28/16 22:39 Dose: 2.5 mg Trazodone HCl (Desyrel) 100 mg PO [facility] Last Admin: 10/28/16 22:39 Dose: 100 mg - Labs Labs: 10/29/16 06:05 10/29/16 06:05 - Constitutional Appears: Non-toxic, No Acute Distress - Head Exam Head Exam: ATRAUMATIC, NORMAL INSPECTION, NORMOCEPHALIC - Eye Exam Eye Exam: EOMI, Normal appearance, PERRL Pupil Exam: NORMAL ACCOMODATION, PERRL - ENT Exam ENT Exam: Mucous Membranes Moist, Normal Exam - Neck Exam Neck Exam: Full ROM, Normal Inspection. absent: Lymphadenopathy - Cardiovascular Exam Cardiovascular Exam: REGULAR RHYTHM, +S1, +S2. absent: Murmur - GI/Abdominal Exam GI & Abdominal Exam: Soft, Normal Bowel Sounds. absent: Tenderness - Extremities Exam Extremities Exam: Full ROM, Normal Capillary Refill, Normal Inspection. absent : Joint Swelling, Pedal Edema - Back Exam Back Exam: NORMAL INSPECTION - Neurological Exam Neurological Exam: Alert, Awake, CN II-XII Intact, Oriented x3 - Psychiatric Exam Psychiatric exam: Normal Affect, Normal Mood - Skin Skin Exam: Dry, Intact, Normal Color, Warm Assessment and Plan - Assessment and Plan (Free Text) Assessment: Acute asthma/COPD exacerbation CXR 10/24: stable b/l lower lobe infiltrates Cont Duoneb 3ml INH Q6 PRN Cont Solumedrol 20mg IVP Q12H changed to 10mg Q12H Cont Singulair 10 mg po qHS Cont ppx abx for pneumonia: Azithromycin and Rocephin EKG w/LBBB, Left axis deviation, sinus tachycardia, Biatrial enlargement Pulm recs- bronchodilators Echo w/normal LV systolic function, normal chamber size, mild TR, EF 69% Heroin withdrawal Abilify Remeron Psych recs: Abilify for psychosis, Remeron for depression, Trazadone for sleep, support & psychoeducation for depression, Methadone taper for opiate w/drawal, SW for housing issues- following [facility]EF[facility]IE- resolving BUN 32 from 28 Cr 1.1 from 1.3 Monitor Hx of hypertension Blood pressure: 144/83 Norvasc 10mg po daily Hydralazone 10 mg IVP for SBP >160 ASA 81mg po daily Monitor BP Hx of hyperlipidemia Crestor 2.5mg po daily Hx of b/l PE as per patient records, patient had bilateral PE in April 2015 admission B/L LE dopplers- neg SCD contraindicated Abdominal pain- resolved No leukocytosis Afebrile Ab U/S w/hepatitic steatosis Monitor PPX Lovenox 40mg SC daily Protonix 40 mg IVP daily Zofran 4mg IVP Q6H PRN SCD contraindicated Nicoderm patch Dispo Cont med mgmt Cont psych mgmt SW eval for housing issues Poss d/c in AM PT eval for de-sat DW attending <Todd James H - Last Filed: 10/29/16 16:02> Objective - Vital Signs/Intake and Output Vital Signs (last 24 hours): Temp Pulse Resp BP Pulse Ox 99.5 F 95 H 20 144/83 91 L 10/29/16 07:25 10/29/16 07:30 10/29/16 07:25 10/29/16 07:25 10/29/16 07:25 - Medications Medications: Current Medications Acetaminophen (Tylenol 325mg Tab) 650 mg PO Q4H PRN PRN Reason: Fever >100.4 F Albuterol/Ipratropium (Duoneb 3 Mg/0.5 Mg (3 Ml) Ud) 3 ml INH RQ6 [facility] Last Admin: 10/29/16 13:26 Dose: Not Given Amlodipine Besylate (Norvasc) 10 mg PO DAILY [facility] Last Admin: 10/29/16 11:00 Dose: 10 mg Aripiprazole (Abilify) 15 mg PO HS [facility] Last Admin: 10/28/16 22:39 Dose: 15 mg Aspirin (Ecotrin) 81 mg PO DAILY [facility] Last Admin: 10/29/16 11:00 Dose: 81 mg Enoxaparin Sodium (Lovenox) 40 mg SC DAILY [facility] Last Admin: 10/29/16 11:00 Dose: 40 mg Azithromycin 500 mg/ Sodium (Chloride) 250 mls @ 250 mls/hr IVPB DAILY [facility] Last Admin: 10/29/16 10:00 Dose: 250 mls/hr Ceftriaxone Sodium 1 gm/ (Sodium Chloride) 100 mls @ 100 mls/hr IVPB DAILY [facility] Last Admin: 10/29/16 10:00 Dose: 100 mls/hr Methylprednisolone (Solu-Medrol) 10 mg IVP Q12H [facility] Mirtazapine (Remeron) 30 mg PO [facility] Last Admin: 10/28/16 22:39 Dose: 30 mg Montelukast Sodium (Singulair) 10 mg PO [facility] Last Admin: 10/28/16 22:39 Dose: 10 mg Nicotine (Nicoderm Cq) 1 patch TD DAILY [facility] Last Admin: 10/29/16 11:00 Dose: 1 patch Ondansetron HCl (Zofran Inj) 4 mg IVP Q6H PRN PRN Reason: Nausea/Vomiting Last Admin: 10/26/16 04:53 Dose: 4 mg Pantoprazole Sodium (Protonix Inj) 40 mg IVP DAILY [facility] Last Admin: 10/29/16 11:00 Dose: 40 mg Rosuvastatin Calcium (Crestor) 2.5 mg PO [facility] Last Admin: 10/28/16 22:39 Dose: 2.5 mg Trazodone HCl (Desyrel) 100 mg PO [facility] Last Admin: 10/28/16 22:39 Dose: 100 mg - Labs Labs: 10/29/16 06:05 10/29/16 06:05 Attending/Attestation - Attestation I have personally seen and examined this patient.: Yes I have fully participated in the care of the patient.: Yes I have reviewed all pertinent clinical information, including history, physical exam and plan: Yes
[2016-10-29] MEDS: Rosuvastatin Calcium 2.5 mg Tab PO SCH (21:04)
[2016-10-30 01:19] VITALS: BP 134/77; TEMP 98.5; O2SAT 97
[2016-10-30] MEDS: Albuterol-Ipratrop 3 mg / 0.5 (3 ml) UD INH SCH ×3 (01:27→13:27)
[2016-10-30 04:43] VITALS: PULSE 80
[2016-10-30] MEDS: Enoxaparin 40 mg Syringe SC SCH (09:43)
[2016-10-30] MEDS: Azithromycin 500 MG in Sodium Chloride 0.9% 250 ML IVPB SCH (10:00)
--- NOTE | 2016-10-30 10:31 | CP.PCM.DIS ---
Addendum entered and electronically signed by iTna Smith DO 10/30/16 14:42: Pt needs home Oxygen due to COPD and desaturation to 85% when ambulating on room air. Original Note: <Tina Smith - Last Filed: 10/30/16 11:08> Provider - Provider Date of Admission: 10/27/16 11:16 Attending physician: Todd James DO Primary care physician: None Consults: Pulm-[place]lamir Time Spent in preparation of Discharge (in minutes): 60 Hospital Course - Lab Results Lab Results: Most Recent Lab Values WBC 7.6 K/uL (4.8-10.8) 10/29/16 06:05 RBC 5.92 Mil/uL (3.80-5.20) H 10/29/16 06:05 Hgb 15.6 g/dL (11.0-16.0) 10/29/16 06:05 Hct 49.8 % (34.0-47.0) H 10/29/16 06:05 MCV 84.0 fL (81.0-99.0) 10/29/16 06:05 MCH 26.4 pg (27.0-31.0) L 10/29/16 06:05 MCHC 31.4 g/dL (33.0-37.0) L 10/29/16 06:05 RDW 17.9 % (11.5-14.5) H 10/29/16 06:05 Plt Count 235 K/uL (130-400) 10/29/16 06:05 MPV 8.5 fL (7.2-11.7) 10/29/16 06:05 Neut % (Auto) 83.7 % (50.0-75.0) H 10/29/16 06:05 Lymph % (Auto) 12.6 % (20.0-40.0) L 10/29/16 06:05 [place] % (Auto) 3.6 % (0.0-10.0) 10/29/16 06:05 Eos % (Auto) 0.0 % (0.0-4.0) 10/29/16 06:05 Baso % (Auto) 0.1 % (0.0-2.0) 10/29/16 06:05 Neut # 6.3 K/uL (1.8-7.0) 10/29/16 06:05 Lymph # 1.0 K/uL (1.0-4.3) 10/29/16 06:05 [place] # 0.3 K/uL (0.0-0.8) 10/29/16 06:05 Eos # 0.0 K/uL (0.0-0.7) 10/29/16 06:05 Baso # 0.0 K/uL (0.0-0.2) 10/29/16 06:05 Neutrophils % (Manual) 85 % (50-75) H 10/27/16 06:11 Band Neutrophils % 1 % (0-2) 10/27/16 06:11 Lymphocytes % (Manual) 11 % (20-40) L 10/27/16 06:11 Reactive Lymphs % 1 % (0-0) H 10/26/16 13:24 Monocytes % (Manual) 3 % (0-10) 10/27/16 06:11 Toxic Granulation Present 10/26/16 13:24 Platelet Estimate Normal (NORMAL) 10/27/16 06:11 Large Platelets Present 10/27/16 06:11 Polychromasia Slight 10/26/16 13:24 Hypochromasia (manual) Slight 10/26/16 13:24 Anisocytosis (manual) Slight 10/27/16 06:11 Puncture Site Rradial 10/24/16 19:37 pCO2 45 mm/Hg (35-45) 10/24/16 19:37 pO2 79 mm/Hg (80-100) L 10/24/16 19:37 HCO3 26.2 mmol/L (21-28) 10/24/16 19:37 ABG pH 7.39 (7.35-7.45) 10/24/16 19:37 ABG Total CO2 28.6 mmol/L (22-28) H 10/24/16 19:37 ABG O2 Saturation 97.2 % (95-98) 10/24/16 19:37 ABG Base Excess 1.7 mmol/L (-2.0-3.0) 10/24/16 19:37 [place] Test Pos 10/24/16 19:37 ABG Potassium 3.4 mmol/L (3.6-5.2) L 10/24/16 19:37 A-a O2 Difference 93.0 mm/Hg 10/24/16 19:37 Respiratory Index 1.2 10/24/16 19:37 Sodium 138.0 mmol/l (132-148) 10/24/16 19:37 Chloride 107.0 mmol/L (98-107) 10/24/16 19:37 Glucose 127 mg/dl (65-105) H 10/24/16 19:37 Lactate 0.8 mmol/L (0.7-2.1) 10/24/16 19:37 Liter Flow 3.0 10/24/16 19:37 FiO2 32.0 % 10/24/16 19:37 Sodium 132 mmol/L (132-148) 10/29/16 06:05 Potassium 4.2 mmol/L (3.6-5.2) 10/29/16 06:05 Chloride 95 mmol/L (98-107) L 10/29/16 06:05 Carbon Dioxide 26 mmol/L (22-30) 10/29/16 06:05 Anion Gap 15 (10-20) 10/29/16 06:05 BUN 32 mg/dL (7-17) H 10/29/16 06:05 Creatinine 1.1 MG/DL (0.7-1.2) 10/29/16 06:05 Est GFR ( Amer) > 60 10/29/16 06:05 Est GFR (Non-Af Amer) 51 10/29/16 06:05 POC Glucose (mg/dL) 128 mg/dL (65-110) H 10/28/16 06:46 Random Glucose 108 mg/dL (65-105) H 10/29/16 06:05 Calcium 8.7 mg/dl (8.6-10.4) 10/29/16 06:05 Phosphorus 3.2 mg/dL (2.5-4.5) 10/29/16 06:05 Magnesium 1.9 mg/dL (1.6-2.3) 10/29/16 06:05 Total Bilirubin 0.7 mg/dL (0.2-1.3) 10/29/16 06:05 AST 12 U/L (14-36) L D 10/29/16 06:05 ALT 16 U/L (9-52) 10/29/16 06:05 Alkaline Phosphatase 56 U/L (38-126) 10/29/16 06:05 Total Protein 5.8 g/dL (6.3-8.3) L 10/29/16 06:05 Albumin 3.1 g/dL (3.5-5.0) L 10/29/16 06:05 Globulin 2.6 gm/dL (2.2-3.9) 10/29/16 06:05 Albumin/Globulin Ratio 1.2 (1.0-2.1) 10/29/16 06:05 Arterial Blood Potassium 3.4 mmol/L (3.6-5.2) L 10/24/16 19:37 Urine Color Yellow (YELLOW) 10/24/16 17:56 Urine Clarity Clear (Clear) 10/24/16 17:56 Urine pH 6.0 (5.0-8.0) 10/24/16 17:56 Ur Specific [place] 1.015 (1.003-1.030) 10/24/16 17:56 Urine Protein 2+ mg/dL (NEGATIVE) H 10/24/16 17:56 Urine Glucose (UA) Normal mg/dL (Normal) 10/24/16 17:56 Urine Ketones Trace mg/dL (NEGATIVE) 10/24/16 17:56 Urine Blood Trace (NEGATIVE) H 10/24/16 17:56 Urine Nitrate Negative (NEGATIVE) 10/24/16 17:56 Urine Bilirubin Negative (NEGATIVE) 10/24/16 17:56 Urine Urobilinogen Normal mg/dL (0.2-1.0) 10/24/16 17:56 Ur Leukocyte Esterase Neg Zaynab/uL (Negative) 10/24/16 17:56 Urine WBC (Auto) 1 /hpf (0-5) 10/24/16 17:56 Urine RBC (Auto) 3 /hpf (0-3) 10/24/16 17:56 Ur Squamous Epith Cells < 1 /hpf (0-5) 10/24/16 17:56 Urine Bacteria Rare (<OCC) 10/24/16 17:56 Urine Opiates Screen Positive (NEGATIVE) 10/24/16 17:56 Urine Methadone Screen Negative (NEGATIVE) 10/24/16 17:56 Ur Barbiturates Screen Negative (NEGATIVE) 10/24/16 17:56 Ur Phencyclidine Scrn Negative (NEGATIVE) 10/24/16 17:56 Ur Amphetamines Screen Negative (NEGATIVE) 10/24/16 17:56 U Benzodiazepines Scrn Negative (NEGATIVE) 10/24/16 17:56 U Oth Cocaine Metabols Negative (NEGATIVE) 10/24/16 17:56 U Cannabinoids Screen Negative (NEGATIVE) 10/24/16 17:56 Alcohol, Quantitative < 10 mg/dl (0-10) 10/24/16 15:34 - Hospital Course Hospital Course: 61 year old homeless AA female with PMHx of HTN, COPD/asthma, pneumonia, heroin abuse presents to ED with complains of shortness of breath and wheezing. Patient reports having snorted 4 bags of heroin during the day prior to admission. Patient was brought in by EMS and was given one duoneb treatment en route and given 3 treatments in the ED. When she first arrived patient reported still being "high" and had pinpoint pupils. After being given narcan she began to withdraw and started complaining of vomiting and body aches. Patient had green colored emesis in the ED and was complaining of abdominal pain. Patient did report a "marc horse" but would not tell me in which leg. She reported that her breathing had improved slightly after the treatments. Patient denied any fever, chills, headaches, chest pain. ROS was limited. Pt admitted to hospital for acute asthma/COPD exacerbation with appropriate respiratory medical management, including Abx. Pt seen/evaluated by pulmonology with recs for bronchodilators. Pt seen/evaluated by psych for heroin withdrawal- placed on detox program with recs for outpatient rehab. Chronic diseases managed medically. Work up included B/L LE dopplers due to hx of DVT- which were negative. Cardiac work up included ECHo w/findings of normal LV systolic function, normal chamber size, mild TR, EF 69%. Pt finished Methadone taper, was continued on psych medications. Pt stable, ready for discharge as per Dr. aJmes. [facility]. Diagnoses Substance abuse- heroin Acute asthma COPD exacerbation Hx HTN Hx HLD Hx B/L LE PE Nictotine dependence Please see EMR for full details. - Date & Time of H&P Date of H&P: 10/24/16 Time of H&P: 16:59 Discharge Exam - Head Exam Head Exam: ATRAUMATIC, NORMAL INSPECTION, NORMOCEPHALIC - Eye Exam Eye Exam: EOMI, Normal appearance, PERRL Pupil Exam: NORMAL ACCOMODATION, PERRL - ENT Exam ENT Exam: Mucous Membranes Moist, Normal Exam - Neck Exam Neck exam: Full Rom, Normal Inspection - Respiratory Exam Respiratory Exam: Clear to PA & Lateral, NORMAL BREATHING PATTERN, UNREMARKABLE. absent: Accessory Muscle Use, Chest Wall Tenderness, Rales, Rhonchi, Wheezes, Respiratory Distress - Cardiovascular Exam Cardiovascular Exam: REGULAR RHYTHM, +S1, +S2 - GI/Abdominal Exam GI & Abdominal Exam: Normal Bowel Sounds, Soft, Unremarkable. absent: Tenderness - Extremities Exam Extremities exam: normal inspection - Back Exam Back exam: NORMAL INSPECTION - Neurological Exam Neurological exam: Alert, CN II-XII Intact, Oriented x3 - Psychiatric Exam Psychiatric exam: Normal Affect, Normal Mood - Skin Skin Exam: Dry, Intact, Normal Color, Warm Discharge Plan - Discharge Medications Prescriptions: Carvedilol [Coreg] 25 mg PO BID #60 tab Lovastatin 10 mg PO HS #30 tab amLODIPine [Norvasc] 10 mg PO DAILY #30 tab Lisinopril [Prinivil] 5 mg PO DAILY #30 tablet Pantoprazole [Protonix EC Tab] 40 mg PO DAILY #30 ect Mirtazapine [Remeron] 30 mg PO HS #30 tab predniSONE [Prednisone] See Taper PO DAILY 6 Days - Follow Up Plan Condition: STABLE Disposition: HOME/ ROUTINE Instructions: Lisinopril (By mouth), Lovastatin (By mouth), Prednisone (By mouth), Amlodipine (By mouth), Mirtazapine (By mouth), Carvedilol (By mouth), Pantoprazole (By mouth), Heart Failure (DC), Asthma (DC), Heart Healthy Diet (DC ), Narcotic Abuse (GEN) Additional Instructions: Patient medically stable and ready for discharge as per Dr. James. Patient is to complete a short Prednisone taper- 10mg twice daily for 3 days, then 10mg once daily for 3 days. [facility] 1 week after hospitalization. Please return to hospital if you have a recurrence of symptoms. Referrals: [facility] [Outside] Clinical Quality Measures - CQM - Heart Failure Ejection Fraction: 40 % or Greater Left Ventricular Function to be assessed after discharge: No AZAM Inhibitor Prescribed: Yes Beta-Adelaida Prescribed: Carvedilol Angiotensin II Receptor Adelaida Prescribed: No Contraindication/Reason for not providing: Not indicated AnticoagulationTherapy for Atrial Fibrillation/Atrialflutter: No Contraindication/Reason for not providing: Not indicated Aldosterone Antagonist Prescribed: No Contraindication/Reason for not providing: Not indicated Hydralazine Nitrate Prescribed: No Contraindication/Reason for not providing: Not indicated Implantable Cardioverter Defibrillator Therapy: No Contraindication/Reason for not providing: Not indicated Cardiac Resynchronization Therapy Prescribed: No Contraindication/Reason for not providing: Not indicated Will be discharged to: Home Follow Up Date (must be within 7 days from discharge): 11/06/16 Follow Up Time: 09:00 - Date & Time of Discharge Summary Date of Discharge Summary: 10/30/16 Time of Discharge Summary: 11:12 <Todd James - Last Filed: 10/30/16 15:07> Provider - Provider Date of Admission: 10/27/16 11:16 Attending physician: Todd James, DO Hospital Course - Lab Results Lab Results: Most Recent Lab Values WBC 7.6 K/uL (4.8-10.8) 10/29/16 06:05 RBC 5.92 Mil/uL (3.80-5.20) H 10/29/16 06:05 Hgb 15.6 g/dL (11.0-16.0) 10/29/16 06:05 Hct 49.8 % (34.0-47.0) H 10/29/16 06:05 MCV 84.0 fL (81.0-99.0) 10/29/16 06:05 MCH 26.4 pg (27.0-31.0) L 10/29/16 06:05 MCHC 31.4 g/dL (33.0-37.0) L 10/29/16 06:05 RDW 17.9 % (11.5-14.5) H 10/29/16 06:05 Plt Count 235 K/uL (130-400) 10/29/16 06:05 MPV 8.5 fL (7.2-11.7) 10/29/16 06:05 Neut % (Auto) 83.7 % (50.0-75.0) H 10/29/16 06:05 Lymph % (Auto) 12.6 % (20.0-40.0) L 10/29/16 06:05 [place] % (Auto) 3.6 % (0.0-10.0) 10/29/16 06:05 Eos % (Auto) 0.0 % (0.0-4.0) 10/29/16 06:05 Baso % (Auto) 0.1 % (0.0-2.0) 10/29/16 06:05 Neut # 6.3 K/uL (1.8-7.0) 10/29/16 06:05 Lymph # 1.0 K/uL (1.0-4.3) 10/29/16 06:05 [place] # 0.3 K/uL (0.0-0.8) 10/29/16 06:05 Eos # 0.0 K/uL (0.0-0.7) 10/29/16 06:05 Baso # 0.0 K/uL (0.0-0.2) 10/29/16 06:05 Neutrophils % (Manual) 85 % (50-75) H 10/27/16 06:11 Band Neutrophils % 1 % (0-2) 10/27/16 06:11 Lymphocytes % (Manual) 11 % (20-40) L 10/27/16 06:11 Reactive Lymphs % 1 % (0-0) H 10/26/16 13:24 Monocytes % (Manual) 3 % (0-10) 10/27/16 06:11 Toxic Granulation Present 10/26/16 13:24 Platelet Estimate Normal (NORMAL) 10/27/16 06:11 Large Platelets Present 10/27/16 06:11 Polychromasia Slight 10/26/16 13:24 Hypochromasia (manual) Slight 10/26/16 13:24 Anisocytosis (manual) Slight 10/27/16 06:11 Puncture Site Rradial 10/24/16 19:37 pCO2 45 mm/Hg (35-45) 10/24/16 19:37 pO2 79 mm/Hg (80-100) L 10/24/16 19:37 HCO3 26.2 mmol/L (21-28) 10/24/16 19:37 ABG pH 7.39 (7.35-7.45) 10/24/16 19:37 ABG Total CO2 28.6 mmol/L (22-28) H 10/24/16 19:37 ABG O2 Saturation 97.2 % (95-98) 10/24/16 19:37 ABG Base Excess 1.7 mmol/L (-2.0-3.0) 10/24/16 19:37 [place] Test Pos 10/24/16 19:37 ABG Potassium 3.4 mmol/L (3.6-5.2) L 10/24/16 19:37 A-a O2 Difference 93.0 mm/Hg 10/24/16 19:37 Respiratory Index 1.2 10/24/16 19:37 Sodium 138.0 mmol/l (132-148) 10/24/16 19:37 Chloride 107.0 mmol/L (98-107) 10/24/16 19:37 Glucose 127 mg/dl (65-105) H 10/24/16 19:37 Lactate 0.8 mmol/L (0.7-2.1) 10/24/16 19:37 Liter Flow 3.0 10/24/16 19:37 FiO2 32.0 % 10/24/16 19:37 Sodium 132 mmol/L (132-148) 10/29/16 06:05 Potassium 4.2 mmol/L (3.6-5.2) 10/29/16 06:05 Chloride 95 mmol/L (98-107) L 10/29/16 06:05 Carbon Dioxide 26 mmol/L (22-30) 10/29/16 06:05 Anion Gap 15 (10-20) 10/29/16 06:05 BUN 32 mg/dL (7-17) H 10/29/16 06:05 Creatinine 1.1 MG/DL (0.7-1.2) 10/29/16 06:05 Est GFR ( Amer) > 60 10/29/16 06:05 Est GFR (Non-Af Amer) 51 10/29/16 06:05 POC Glucose (mg/dL) 128 mg/dL (65-110) H 10/28/16 06:46 Random Glucose 108 mg/dL (65-105) H 10/29/16 06:05 Calcium 8.7 mg/dl (8.6-10.4) 10/29/16 06:05 Phosphorus 3.2 mg/dL (2.5-4.5) 10/29/16 06:05 Magnesium 1.9 mg/dL (1.6-2.3) 10/29/16 06:05 Total Bilirubin 0.7 mg/dL (0.2-1.3) 10/29/16 06:05 AST 12 U/L (14-36) L D 10/29/16 06:05 ALT 16 U/L (9-52) 10/29/16 06:05 Alkaline Phosphatase 56 U/L (38-126) 10/29/16 06:05 Total Protein 5.8 g/dL (6.3-8.3) L 10/29/16 06:05 Albumin 3.1 g/dL (3.5-5.0) L 10/29/16 06:05 Globulin 2.6 gm/dL (2.2-3.9) 10/29/16 06:05 Albumin/Globulin Ratio 1.2 (1.0-2.1) 10/29/16 06:05 Arterial Blood Potassium 3.4 mmol/L (3.6-5.2) L 10/24/16 19:37 Urine Color Yellow (YELLOW) 10/24/16 17:56 Urine Clarity Clear (Clear) 10/24/16 17:56 Urine pH 6.0 (5.0-8.0) 10/24/16 17:56 Ur Specific [place] 1.015 (1.003-1.030) 10/24/16 17:56 Urine Protein 2+ mg/dL (NEGATIVE) H 10/24/16 17:56 Urine Glucose (UA) Normal mg/dL (Normal) 10/24/16 17:56 Urine Ketones Trace mg/dL (NEGATIVE) 10/24/16 17:56 Urine Blood Trace (NEGATIVE) H 10/24/16 17:56 Urine Nitrate Negative (NEGATIVE) 10/24/16 17:56 Urine Bilirubin Negative (NEGATIVE) 10/24/16 17:56 Urine Urobilinogen Normal mg/dL (0.2-1.0) 10/24/16 17:56 Ur Leukocyte Esterase Neg Zaynab/uL (Negative) 10/24/16 17:56 Urine WBC (Auto) 1 /hpf (0-5) 10/24/16 17:56 Urine RBC (Auto) 3 /hpf (0-3) 10/24/16 17:56 Ur Squamous Epith Cells < 1 /hpf (0-5) 10/24/16 17:56 Urine Bacteria Rare (<OCC) 10/24/16 17:56 Urine Opiates Screen Positive (NEGATIVE) 10/24/16 17:56 Urine Methadone Screen Negative (NEGATIVE) 10/24/16 17:56 Ur Barbiturates Screen Negative (NEGATIVE) 10/24/16 17:56 Ur Phencyclidine Scrn Negative (NEGATIVE) 10/24/16 17:56 Ur Amphetamines Screen Negative (NEGATIVE) 10/24/16 17:56 U Benzodiazepines Scrn Negative (NEGATIVE) 10/24/16 17:56 U Oth Cocaine Metabols Negative (NEGATIVE) 10/24/16 17:56 U Cannabinoids Screen Negative (NEGATIVE) 10/24/16 17:56 Alcohol, Quantitative < 10 mg/dl (0-10) 10/24/16 15:34 Attending/Attestation - Attestation I have personally seen and examined this patient.: Yes I have fully participated in the care of the patient.: Yes I have reviewed all pertinent clinical information, including history, physical exam and plan: Yes Notes (Text): Medical attending: Patient was seen and examined by me, agree with the above note by medical secretary. Patient was again given more discussion and education with reguards to the use of polysubstances and the dangers to her health they can cause. Hopefully some of what we have said will give her better understanding, we wished her the best Patient was tolerating her diet, ambulating in room, bathroom ok, not in any acute distress thank you Todd James
[2016-10-30] MEDS: MethylPREDNISolone 40 mg Vial IVP SCH ×2 (11:50→11:51)
--- NOTE | 2016-10-31 14:17 | CARD ---
APPROVED REPORT EKG Measurement Heart [id number] MD [id number] <Conclusion> Normal sinus rhythm Left atrial enlargement Left axis deviation Left bundle branch block Abnormal ECG
== END 2016-10-30 16:00 | disposition home or self-care (01) | DRG 541 ==
LOC: C.ER 13:09 → C.9E 16:44 → C.6T 20:58 → OBSVTOIN 10-27 11:16
PROVIDERS: ADMIT Hospitalist; ATTEND Hospitalist
PROC: HZ2ZZZZ Detoxification Services for Substance Abuse Treatment (ICD-10-PCS; principal; 2016-10-27)
PROC: HZ36ZZZ Individual Counseling for Substance Abuse Treatment, Psychoeducation (ICD-10-PCS; 2016-10-27)
PROC: HZ59ZZZ Individual Psychotherapy for Substance Abuse Treatment, Supportive (ICD-10-PCS; 2016-10-27)
DX: J44.1 Chronic obstructive pulmonary disease with (acute) exacerbation (principal); N17.9 Acute kidney failure, unspecified; J18.9 Pneumonia, unspecified organism; F33.3 Major depressive disorder, recurrent, severe with psychotic symptoms; J45.901 Unspecified asthma with (acute) exacerbation; K21.9 Gastro-esophageal reflux disease without esophagitis; F11.23 Opioid dependence with withdrawal; I10 Essential (primary) hypertension; Z90.49 Acquired absence of other specified parts of digestive tract; Z59.0 Homelessness; F17.210 Nicotine dependence, cigarettes, uncomplicated; E78.5 Hyperlipidemia, unspecified; Z86.711 Personal history of pulmonary embolism

== ENCOUNTER 2016-11-21 06:10 | Observation (INO) | payer MEDICAID ==
[2016-11-21 06:10] VITALS: BMI 30.1
[2016-11-21] MEDS ORDERED: Albuterol-Ipratrop 3 mg / 0.5 (3 ml) UD INH STA ×3 (07:12→10:25)
--- NOTE | 2016-11-21 07:27 | C.PDOC ---
History Of Present Illness 61-year-old female, PMHx includes Asthma/COPD, and Hypertension, BIBA for evaluation of shortness of breath. Patient apparently found sleeping on the street in [facility]. In ED, patient states he feels tired and mildly SOB. He denies chest pain, fever, cough, abdominal pain, N/V/D. Time Seen by Provider: 11/21/16 07:07 Chief Complaint (Nursing): Substance Abuse History Per: Patient History/Exam Limitations: no limitations Severity: Mild Past Medical History Reviewed: Historical Data, Nursing Documentation, Vital Signs Vital Signs: Last Vital Signs Temp 99.1 F 11/21/16 12:52 Pulse 101 H 11/21/16 12:52 Resp 20 11/21/16 12:52 BP 150/85 11/21/16 12:52 Pulse Ox 90 L 11/21/16 12:52 - Medical History PMH: Asthma, COPD (asthma), HTN Surgical History: Cholecystectomy - [facility] Procedures ASSISTANCE WITH RESPIRATORY VENTILATION, 24-96 HRS, CPAP (07/14/16) CONTINUOUS INVASIVE MECHANICAL VENTILATION =/>96 CONSEC HRS (07/25/14) DETOXIFICATION SERVICES FOR SUBSTANCE ABUSE TREATMENT (10/27/16) DRUG DETOXIFICATION (07/25/14) EXCISION OF RIGHT PLEURA, PERC ENDO APPROACH, DIAGN (03/26/15) EXCISION OF RIGHT UPPER LOBE BRONCHUS, PERC APPROACH, DIAGN (03/26/15) EXTRACTION OF RIGHT PLEURA, PERCUTANEOUS ENDOSCOPIC APPROACH (03/26/15) INDIV PRESETTER OPERATOR FOR SUBSTANCE ABUSE TREATMENT, PSYCHOEDUCATION (10/27/16) INDIV PSYCHOTHERAPY FOR SUBSTANCE ABUSE TREATMENT, SUPPORT (10/27/16) INFLUENZA VACCINATION (06/25/14) INSERT ENDOTRACHEAL TUBE (07/25/14) Family History: States: No Known Family Hx - Social History Hx Tobacco Use: Yes Hx Alcohol Use: Yes Hx Substance Use: Yes - Immunization History Hx Tetanus Toxoid Vaccination: No Hx Influenza Vaccination: Yes Hx Pneumococcal Vaccination: No Review Of Systems Except As Marked, All Systems Reviewed And Found Negative. Constitutional: Negative for: Fever, Chills Cardiovascular: Negative for: Chest Pain, Palpitations Respiratory: Positive for: Shortness of Breath. Negative for: Cough Gastrointestinal: Negative for: Nausea, Vomiting, Abdominal Pain, Diarrhea Musculoskeletal: Negative for: Neck Pain, Back Pain Skin: Negative for: Rash Neurological: Negative for: Weakness, Numbness, Headache, Dizziness Physical Exam - Physical Exam Appears: Non-toxic, No Acute Distress, Unkempt ( malodorous.), Other (Appears drowsy. Speaking in full sentences.) Skin: Warm, Dry Head: Atraumatic, Normacephalic Eye(s): bilateral: Normal Inspection, PERRL Oral Mucosa: Moist Neck: Normal, Normal ROM, No Midline Cervical Tenderness, No Paracervical Tenderness, No Step Off Deformity, Supple Chest: Symmetrical Cardiovascular: Rhythm Regular (tachycardic ), No Murmur Respiratory: No Accessory Muscle Use, No Rales, No Rhonchi, Wheezing (expiratory , B/L) Gastrointestinal/Abdominal: Normal Exam, Bowel Sounds, Soft, No Tenderness Extremity: Normal ROM, No Pedal Edema, No Calf Tenderness Pulses: Left Dorsalis Pedis: Normal, Right Dorsalis Pedis: Normal Neurological/Psych: Oriented x3 ED Course And Treatment - Laboratory Results Result Diagrams: 11/21/16 07:29 11/21/16 07:29 O2 Sat by Pulse Oximetry: 92 (RA) Pulse Ox Interpretation: Normal (copd history) - Radiology CXR: Interpreted by Me, Viewed By Me (no infiltrates/effusions) Progress Note: Blood work, CXR ordered and revviewed. Patient given IV solumedrol, duoneb treatments. Reevaluation Time: 12:15 Reassessment Condition: Improved (On reassessment, patient is awake, alert and states she feels better. On exam, she has good air entry B/L without wheezing or accessory muscle use. CXR (-) for infiltrates. Blood work without leukocytosis. Patient is comfortable being discharged, was given Rxs for prednisone and albuterol inhaler. She was instructed to follow up with PMD/ clinic in 1-2 days, and understands she should return to ED if symptoms worsen.) Disposition - Disposition Disposition: HOME/ ROUTINE Disposition Time: 12:15 Condition: STABLE - Clinical Impression Clinical Impression: Wheezing, COPD (chronic obstructive pulmonary disease) - Scribe Statement The provider has reviewed the documentation as recorded by the Scribtierra Caldwell All medical record entries made by the Scribe were at my direction and personally dictated by me. I have reviewed the chart and agree that the record accurately reflects my personal performance of the history, physical exam, medical decision making, and the department course for this patient. I have also personally directed, reviewed, and agree with the discharge instructions and disposition.
[2016-11-21 07:35] LABS: BASO % 0.3 % (0.0-2.0); EOS # 0.1 K/uL (0.0-0.7); EOS % 1.7 % (0.0-4.0); HEMATOCRIT 40.1 % (34.0-47.0); LYMPH # 2.1 K/uL (1.0-4.3); LYMPH % 28.6 % (20.0-40.0); MEAN CELL VOLUME 84.2 fL (81.0-99.0); MEAN CORPUSCULAR HEMOGLOBIN 26.7 pg (27.0-31.0); MEAN CORPUSCULAR HGB CONC 31.7 g/dL (33.0-37.0); MEAN PLATELET VOLUME 8.5 fL (7.2-11.7); MONO # 0.4 K/uL (0.0-0.8); MONO % 6.1 % (0.0-10.0); NRBC % 0.3 % (0.0-2.0); RED CELL DISTRIBUTION WIDTH 18.4 % (11.5-14.5); WHITE BLOOD COUNT 7.4 K/uL (4.8-10.8)
[2016-11-21] MEDS ORDERED: Albuterol-Ipratrop 3 mg / 0.5 (3 ml) UD ONE ×2 (07:36→10:54)
[2016-11-21 07:41] LABS: POTASSIUM 4.2 mmol/L (3.6-5.2)
[2016-11-21 07:44] LABS: CALCIUM 8.9 mg/dl (8.6-10.4)
--- NOTE | 2016-11-21 08:33 | RAD ---
PROCEDURE: CHEST RADIOGRAPH, 1 VIEW HISTORY: Shortness of breath COMPARISON: 10/24/2016 FINDINGS: LUNGS: Diffuse increased interstitial lung markings with patchy bibasilar airspace opacities. Bilateral hilar prominence. PLEURA: As above. CARDIOVASCULAR: Tortuous ectatic aorta. OSSEOUS STRUCTURES: Degenerative changes in the spine and shoulders. Question mild calcific tendinopathy of the right proximal shoulder. VISUALIZED UPPER ABDOMEN: Normal. OTHER FINDINGS: None. IMPRESSION: Diffuse increased interstitial lung markings with patchy bibasilar airspace opacities. Bilateral hilar prominence.
[2016-11-21 09:18] VITALS: RESP 20
[2016-11-21] MEDS ORDERED: Albuterol 0.083% Inhal Sol (2.5 mg/3 mL) UD IH STA (10:26)
[2016-11-21 12:53] VITALS: BP 150/85; PULSE 101; TEMP 99.1
[2016-11-25 17:33] VITALS: O2SAT 92
== END 2016-11-21 12:15 | disposition home or self-care (01) ==
LOC: C.ER 06:10 → C.9OBSV 08:15
PROVIDERS: ADMIT Emergency Medicine; ATTEND Emergency Medicine
DX: R06.02 Shortness of breath (principal); J44.9 Chronic obstructive pulmonary disease, unspecified; I10 Essential (primary) hypertension
CPT/HCPCS: 71010; 80048; 82948; 85025; 94640; 96374; 99285; G0378; J2930

== ENCOUNTER 2016-12-11 13:56 | Inpatient (IN) | payer MEDICAID ==
[2016-12-11 13:59] VITALS: BMI 28.3
[2016-12-11 14:37] LABS: BASO % 0.6 % (0.0-2.0); EOS # 0.1 K/uL (0.0-0.7); EOS % 1.2 % (0.0-4.0); HEMATOCRIT 43.7 % (34.0-47.0); LYMPH # 1.1 K/uL (1.0-4.3); LYMPH % 18.8 % (20.0-40.0); MEAN CELL VOLUME 83.4 fL (81.0-99.0); MEAN CORPUSCULAR HEMOGLOBIN 26.4 pg (27.0-31.0); MEAN CORPUSCULAR HGB CONC 31.6 g/dL (33.0-37.0); MEAN PLATELET VOLUME 8.4 fL (7.2-11.7); MONO # 0.1 K/uL (0.0-0.8); MONO % 2.4 % (0.0-10.0); NRBC % 0.1 % (0.0-2.0); RED CELL DISTRIBUTION WIDTH 18.9 % (11.5-14.5); WHITE BLOOD COUNT 5.8 K/uL (4.8-10.8)
[2016-12-11 14:41] LABS: CHLORIDE 101 mmol/L (98-107)
[2016-12-11 14:42] LABS: POTASSIUM 4.6 mmol/L (3.6-5.2); SODIUM 139 mmol/L (132-148)
[2016-12-11 14:44] LABS: ALB/GLOB RATIO 1.3 (1.0-2.1); AST/SGOT 19 U/L (14-36); BILIRUBIN,TOTAL 0.8 mg/dL (0.2-1.3); CARBON DIOXIDE 28 mmol/L (22-30); GFR AFRICAN-AMERICAN 56; GRANULAR CAST 2 /lpf (0-1); RBC URINE 2 /hpf (0-3); TOTAL PROTEIN 7.2 g/dL (6.3-8.3); URINE BILIRUBIN NEGATIVE (NEGATIVE); URINE BLOOD NEGATIVE (NEGATIVE); URINE COLOR Yellow (YELLOW); URINE GLUCOSE (UA) NORMAL (Normal); URINE KETONE NEGATIVE (NEGATIVE); URINE LEUKOCYTE ESTERASE TRACE Leu/uL (Negative); URINE PROTEIN 2+ mg/dL (NEGATIVE); URINE UROBILINOGEN NORMAL mg/dL (0.2-1.0); WBC URINE 4 /hpf (0-5)
[2016-12-11 14:45] LABS: ALCOHOL SERUM < 10 mg/dl (0-10); ALKALINE PHOSPHATASE 89 U/L (38-126); ALT/SGPT 19 U/L (9-52); BLOOD UREA NITROGEN 21 mg/dL (7-17); CALCIUM 9.5 mg/dl (8.6-10.4); GLUCOSE,RANDOM 99 mg/dL (65-105)
--- NOTE | 2016-12-11 15:52 | C.PDOC ---
History Of Present Illness 61 y/o female presents to ED requesting detox from heroin. Patient is pre- screened and pending medical clearance. Patient states last used this morning. Patient admits snorting up to 3 bags of heroin daily and denies the use of other substances. No other complaints at this time. Time Seen by Provider: 12/11/16 14:11 Chief Complaint (Nursing): Substance Abuse History Per: Patient History/Exam Limitations: no limitations Onset/Duration Of Symptoms: Days Current Symptoms Are (Timing): Still Present Past Medical History Reviewed: Historical Data, Nursing Documentation, Vital Signs Vital Signs: Last Vital Signs Temp 98.1 F 12/11/16 13:59 Pulse 81 12/11/16 13:59 Resp 16 12/11/16 13:59 BP 152/96 H 12/11/16 13:59 Pulse Ox 94 L 12/11/16 16:44 - Medical History PMH: Asthma, COPD (asthma), HTN Surgical History: Cholecystectomy - [facility] Procedures ASSISTANCE WITH RESPIRATORY VENTILATION, 24-96 HRS, CPAP (07/14/16) CONTINUOUS INVASIVE MECHANICAL VENTILATION =/>96 CONSEC HRS (07/25/14) DETOXIFICATION SERVICES FOR SUBSTANCE ABUSE TREATMENT (10/27/16) DRUG DETOXIFICATION (07/25/14) EXCISION OF RIGHT PLEURA, PERC ENDO APPROACH, DIAGN (03/26/15) EXCISION OF RIGHT UPPER LOBE BRONCHUS, PERC APPROACH, DIAGN (03/26/15) EXTRACTION OF RIGHT PLEURA, PERCUTANEOUS ENDOSCOPIC APPROACH (03/26/15) INDIV UNDERCOAT SPRAYER FOR SUBSTANCE ABUSE TREATMENT, PSYCHOEDUCATION (10/27/16) INDIV PSYCHOTHERAPY FOR SUBSTANCE ABUSE TREATMENT, SUPPORT (10/27/16) INFLUENZA VACCINATION (06/25/14) INSERT ENDOTRACHEAL TUBE (07/25/14) Family History: States: Unknown Family Hx - Social History Hx Tobacco Use: Yes Hx Alcohol Use: Yes Hx Substance Use: Yes - Immunization History Hx Tetanus Toxoid Vaccination: No Hx Influenza Vaccination: Yes Hx Pneumococcal Vaccination: No Review Of Systems Except As Marked, All Systems Reviewed And Found Negative. Constitutional: Negative for: Fever, Chills Cardiovascular: Negative for: Chest Pain Respiratory: Negative for: Shortness of Breath Gastrointestinal: Negative for: Nausea, Vomiting, Diarrhea Skin: Negative for: Rash Neurological: Negative for: Weakness, Headache, Dizziness Psych: Negative for: Anxiety, Depression Physical Exam - Physical Exam Appears: No Acute Distress Skin: Normal Color, Warm Head: Atraumatic, Normacephalic Eye(s): bilateral: Normal Inspection, PERRL Oral Mucosa: Moist Cardiovascular: Rhythm Regular Respiratory: No Rales, No Rhonchi, No Wheezing Gastrointestinal/Abdominal: Soft, No Tenderness, No Guarding, No Rebound Extremity: Normal ROM Neurological/Psych: Oriented x3, Normal Speech ED Course And Treatment - Laboratory Results Result Diagrams: 12/11/16 14:29 12/11/16 14:29 O2 Sat by Pulse Oximetry: 94 (RA) Pulse Ox Interpretation: Normal Disposition - Disposition Disposition: HOSPITALIZED Disposition Time: 15:51 Condition: GUARDED - Clinical Impression Clinical Impression: Drug dependence - PA / PROOF CLERK / Resident Statement MD/DO has reviewed & agrees with the documentation as recorded. MD/DO has examined the patient and agrees with the treatment plan. - Scribe Statement The provider has reviewed the documentation as recorded by the Brookeibtierra Bailey All medical record entries made by the Brookeibe were at my direction and personally dictated by me. I have reviewed the chart and agree that the record accurately reflects my personal performance of the history, physical exam, medical decision making, and the department course for this patient. I have also personally directed, reviewed, and agree with the discharge instructions and disposition. Decision To Admit - Pt Status Changed To: Hospital Disposition Of: Inpatient - Admit Certification Admit to Inpatient:: After my assessment, the patient will require hospitalization for at least two midnights. This is because of the severity of symptoms shown, intensity of services needed, and/or the medical risk in this patient being treated as an outpatient. - InPatient: Physician Admission Certification: I certify that this patient requires 2 or more midnights of care for the following reason:: needs detox from opioid - . Bed Request Type: Detox Patient Diagnosis: Drug dependence
[2016-12-11] MEDS ORDERED: Albuterol HFA 90 mcg/actuation (8 g) INH PRN (16:57)
[2016-12-11] MEDS ORDERED: Buprenorphine Hydrochloride 2 mg SL ONE ×2 (20:54→22:00)
[2016-12-11] MEDS ORDERED: Aluminum Hydroxide/Magnesium Hydroxide Susp (30 mL) PO PRN (21:33)
[2016-12-12] MEDS: Pantoprazole 20 mg EC Tab PO SCH (10:52)
[2016-12-12] MEDS: Buprenorphine Hydrochloride 2 mg SL SCH (10:54)
--- NOTE | 2016-12-12 13:35 | PCM.PSYCH ---
Initial Psychiatric Evaluation - Initial Psychiatric Evaluation Type of Admission: Voluntary Legal Status: Capacity Chief Complaint (in patient's own words): "I'm fine." History of Present Illness and Precipitating Events: This is a 61 yo female who single, homeless, and unemployed. She states that she has 4 sons who are 32yo, 36yo, 38yo, and 42yo. She says that she began snorting heroin when she was 20yo and snorts 9-10 bags a day. Her longest sobriety was for 6 months but relapsed because she just wanted to use again. She states that she has been to detox at [facility] about 5 years ago and says that she was recently at [facility] where she left her belongings before coming here. She also states that she started smoking when she was 15yo and smokes 1.5 packs of cigarettes a day. She has never tried to quit but would be willing to do so now with the patch. Also, she says that she drinks liquor every now and then. She denies the use of other drugs such as cocaine, PCP, LSD, and ecstasy. She states that she is on probation for heroin use and has been to prison in the past. She says that she does not want to go to rehab and will quit on her own. Currently she denies withdrawal symptoms of nausea, vomiting, diarrhea, abdominal pain, headaches, and body aches. She says that she slept the night, only waking up once to use the restroom. She denies hallucinations, S/I, H/I, or anxiety. She states that her overall mood is fine. Past medical history: HTN, Asthma Past psych history: Depression Family psych history: denies Family substance abuse: denies Current Medications: Active Medications Generic Name Dose Route Start Last Admin Trade Name Freq PRN Reason Stop Dose Admin Al Hydrox/Mg Hydrox/Simethicone 30 ml 12/11/16 21:33 Maalox 30 Ml PO TID PRN Indigestion / Heartburn Albuterol 1 puff 12/11/16 16:57 Ventolin Hfa 90 Mcg/Actuation (8 G) INH RQ4 PRN sibilant musical ronchi Amlodipine Besylate 5 mg 12/12/16 10:15 12/12/16 10:52 Norvasc PO 5 mg DAILY MONTY Administration Aripiprazole 5 mg 12/12/16 22:00 Abilify PO HS MONTY Aspirin 81 mg 12/12/16 10:15 12/12/16 10:52 Aspirin Chewable PO 81 mg DAILY MONTY Administration Buprenorphine HCl 8 mg 12/12/16 10:00 12/12/16 10:54 Subutex SL 12/16/16 09:59 8 mg DAILY MONTY Administration Taper Carvedilol 12.5 mg 12/12/16 10:15 12/12/16 11:43 Coreg PO 12.5 mg BID MONTY Administration Clonidine HCl 0.1 mg 12/11/16 16:58 12/12/16 06:06 Catapres PO 0.1 mg Q8 PRN Administration hypertension Hydroxyzine HCl 25 mg 12/11/16 21:40 12/12/16 06:05 Atarax PO 25 mg Q6H PRN Administration Anxiety Ibuprofen 600 mg 12/11/16 21:39 Motrin Tab PO Q6H PRN Pain, moderate (4-7) Loperamide HCl 2 mg 12/11/16 21:33 Imodium PO Q8 PRN Diarrhea Mirtazapine 15 mg 12/12/16 22:00 Remeron PO HS MONTY Nicotine 1 patch 12/12/16 10:00 12/12/16 09:55 Nicoderm Cq TD 1 patch DAILY MONTY Administration Ondansetron HCl 4 mg 12/11/16 21:33 Zofran Tab PO Q8 PRN Nausea/Vomiting Pantoprazole Sodium 20 mg 12/12/16 10:15 12/12/16 10:52 Protonix Ec Tab PO 20 mg DAILY MONTY Administration Rosuvastatin Calcium 5 mg 12/12/16 22:00 Crestor PO HS MONTY Trazodone HCl 50 mg 12/11/16 16:59 Desyrel PO HS PRN insomnia Past Psychiatric History - Past Psychiatric History Previous Treatment History: Inpatient Pertinent Medical Hx (Current Medical&Sleep Prob, Allergies): Allergies Allergy/AdvReac Type Severity Reaction Status Date / Time No Known Allergies Allergy Verified 12/11/16 13:58 Albuterol HFA [Ventolin HFA 90 mcg/actuation (8 g)] 0.09 mg IH Q4 PRN #1 puff Review of Systems - Psychiatric Psychiatric: Depression. absent: Anxiety, Hallucinations, Homicidal Ideation, Suicidal Ideation Mental Status Examination - Personal Presentation Personal Presentation: Looks stated age - Affect Affect: Constricted - Motor Activity Motor Activity: Calm - Reliability in Providing Information Reliability in Providing Information: Other - Speech Speech: Organized - Mood Mood: Depressed - Formal Thought Process Formal Thought Process: No Impairment - Obsessions/Compulsions Obsessions: None Compulsions: None - Cognitive Functions Orientation: Person, Place, Situation, Time Sensorium: Alert Attention/Concentration: Attentive Estimate of Intelligence: Average Judgement: Intact, as evidence by: Insight regarding need for hospitalization Memory: Recent intact, as evidence by: Ability to recall events of the day, Remote intact, as evidenced by: Abilit to recall sig. life events - Risk Risk: Diminished functioning - Strength & Assets Inventory Strength & Assets Inventory: Cooperative - Limitations Limitations: Living alone DSM 5 DX - DSM 5 DSM 5 Diagnosis: Opioid Use Disorder-severe Opioid Withdrawal-severe Tobacco Use Disorder-severe - Recommended/Plan of Treatment Treatment Recommendations and Plan of Treatment: Opioid Use Disorder: 1. Support and psychoeducation 2. Attend groups and activities daily 3. OK for abstinence 4. CBT for relapse prevention Opioid Withdrawal Disorder: 1. Methadone detox 2. As needed meds 3. Psychoeducation and support Tobacco Use Disorder: 1. Nicotine patch 33 min Projected ELOS: 5 days Prognosis: Good with treatment Discharge Plan and Discharge Criteria: No wdw sxs Refer to IOP - Smoking Cessation Smoking Cessation Initiated: Yes
[2016-12-13] MEDS: Pantoprazole 20 mg EC Tab PO SCH (09:31)
[2016-12-13] MEDS: Buprenorphine Hydrochloride 2 mg SL SCH (09:34)
--- NOTE | 2016-12-13 14:43 | PCM.PYCHPN ---
Psychiatric Progress Note - Psychiatric Progress Note Patient seen today, length of contact: 15 minutes Patient Chief Complaint: I'm feeling better with the treatment Problems Identified/Issues Discussed: Patient seen. Chart reviewed. Case discussed with the staff. Issues related to illness and treatment were discussed with the patient. Reported compliant with treatment with no adverse effects. Reported feeling better with the treatment with mild withdrawal symptoms. Tolerating treatment very well. [facility] from [facility]. At the time of evaluation, patient was awake alert oriented 3, had no delusions, no auditory or visual hallucinations, no suicidal ideations or homicidal ideations. Medical Problems: Hypertension Asthma Diagnostic Results: Reviewed DSM 5 Symptoms Update: Some improvement with treatment Medication Change: No Medical Record Reviewed: Yes Mental Status Examination - Cognitive Function Orientation: Person, Place, Situation, Time Memory: Intact Attention: WNL Concentration: WNL Association: WNL Fund of Knowledge: [facility] Decription of patient's judgement and insights: Fair - Mood Mood: Depressed - Affect Affect: Depressed - Speech Speech: Appropriate - Formal Thought Process Formal Thought Process: No Impairment Psychotic Thoughts and Behaviors: None - Suicidal Ideation Suicidal Ideation: No - Homicidal Ideation Homicidal Ideation: No Goal/Treatment Plan - Goal/Treatment Plan Need for Continued Stay: Remain at risks for inpatient hospitalization, Discharge may exacerbated symptoms, Severe functional impairment Progress Toward Problem(s) and Goals/Treatment Plan: Patient education Supportive therapy Continue treatment as before [facility] discharge from the hospital for follow-up care. Estimated Date of D/C: 12/15/16 - Smoking Cessation Smoking Cessation Initiated: Yes
[2016-12-14] MEDS: Buprenorphine Hydrochloride 2 mg SL SCH (09:11)
[2016-12-14] MEDS: Pantoprazole 20 mg EC Tab PO SCH (09:12)
--- NOTE | 2016-12-14 14:18 | PCM.PYCHPN ---
Psychiatric Progress Note - Psychiatric Progress Note Patient seen today, length of contact: 15 minutes Patient Chief Complaint: I'm feeling better with the treatment Problems Identified/Issues Discussed: Patient seen. Chart reviewed. Case discussed with the staff. Issues related to illness and treatment were discussed with the patient. Reported compliant with treatment with no adverse effects. Reported feeling better with the treatment with mild withdrawal symptoms. Tolerating treatment very well. Patient [facility] discharge from [facility] hospital. At the time of evaluation, patient was awake alert oriented 3, had no delusions, no auditory or visual hallucinations, no suicidal ideations or homicidal ideations. Medical Problems: Hypertension Asthma Diagnostic Results: Reviewed Medication Change: No Medical Record Reviewed: Yes Mental Status Examination - Cognitive Function Orientation: Person, Place, Situation, Time Memory: Intact Attention: WNL Concentration: WNL Association: WNL Fund of Knowledge: [facility] Decription of patient's judgement and insights: Fair - Mood Mood: Depressed (Less than before) - Affect Affect: Depressed - Speech Speech: Appropriate - Formal Thought Process Formal Thought Process: No Impairment Psychotic Thoughts and Behaviors: None - Suicidal Ideation Suicidal Ideation: No - Homicidal Ideation Homicidal Ideation: No Goal/Treatment Plan - Goal/Treatment Plan Need for Continued Stay: Remain at risks for inpatient hospitalization, Discharge may exacerbated symptoms, Severe functional impairment Progress Toward Problem(s) and Goals/Treatment Plan: Patient education Supportive therapy Continue treatment as before [facility] discharge from the hospital for follow-up care. Estimated Date of D/C: 12/15/16 - Smoking Cessation Smoking Cessation Initiated: Yes
[2016-12-14 20:54] VITALS: RESP 18
[2016-12-15 08:46] VITALS: PULSE 70; TEMP 98.2
--- NOTE | 2016-12-15 08:58 | PCM.PYCHDC ---
Mental Status Examination - Mental Status Examination Orientation: Person, Place, Situation, Time Discharge Summary - Discharge Note Reason for Hospitalization: Heroin detox Consultations:: List each consultation separately and include: 1. Reason for request. 2. Findings. 3. Follow-up Summary of Hospital Course include:: 1. Description of specific treatment plan utilized for patients during their course of treatmen. 2. Summarize the time- course for resolution of acute symptoms and/or regressed behaviors. 3. Describe issues identified and worked on during hospitalization. 4. Describe medication utilized. 5. Describe medical problems identified and treated. 6. Reassessment of suicide risk Summary of Hospital Course: On admission: This is a 61 yo female who single, homeless, and unemployed. She states that she has 4 sons who are 32yo, 36yo, 38yo, and 42yo. She says that she began snorting heroin when she was 20yo and snorts 9-10 bags a day. Her longest sobriety was for 6 months but relapsed because she just wanted to use again. She states that she has been to detox at [facility] about 5 years ago and says that she was recently at [facility] where she left her belongings before coming here. She also states that she started smoking when she was 15yo and smokes 1.5 packs of cigarettes a day. She has never tried to quit but would be willing to do so now with the patch. Also, she says that she drinks liquor every now and then. She denies the use of other drugs such as cocaine, PCP, LSD, and ecstasy. She states that she is on probation for heroin use and has been to assisted in the past. She says that she does not want to go to rehab and will quit on her own. Currently she denies withdrawal symptoms of nausea, vomiting, diarrhea, abdominal pain, headaches, and body aches. She says that she slept the night, only waking up once to use the restroom. She denies hallucinations, S/I, H/I, or anxiety. She states that her overall mood is fine. Hospital course: The pt was admitted and started on treatment with psychotherapy, support, psychoeducation and medications. MT and CBT used. The pt attended groups and activities, as well as milieu therapy. She was somewhat withdrawn and oddly related. All the risks and benefits of medications are discussed and the patient understood and agreed. After care discussed with the patient. - Final Diagnosis (DSM 5) Condition upon Discharge: IMPROVED DSM 5: Opioid Use Disorder-severe Opioid Withdrawal-severe Tobacco Use Disorder-severe schizoaffective d/o Disposition: HOME/ ROUTINE Follow-up Treatment Plan: Continue below medications after discharge. Follow after care plan as discussed at [facility] Consider MAT Use relapse prevention skills Return to ER or call 911 if suicidal, homicidal or symptoms relapse. Stay away from stress, alcohol and drugs. Prescriptions/Medication Reconciliation: RX: Albuterol HFA [Ventolin HFA 90 mcg/actuation (8 g)] 1 puff INH RQ4 PRN #1 inhaler PRN Reason: sibilant musical ronchi RX: amLODIPine [Norvasc] 10 mg PO DAILY #30 tab RX: ARIPiprazole [Abilify] 5 mg PO HS #30 tab RX: Aspirin [Aspirin Chewable] 81 mg PO DAILY #30 RX: Carvedilol [Coreg] 25 mg PO BID #60 tab RX: Mirtazapine [Remeron] 30 mg PO HS #30 tab RX: Pantoprazole [Protonix EC Tab] 20 mg PO DAILY #30 ect RX: Rosuvastatin Calcium [Crestor] 10 mg PO HS #30 tab RX: traZODone [Desyrel] 50 mg PO HS PRN #30 tab PRN Reason: insomnia - Smoking Cessation Smoking Cessation Medication prescribed: No - Antipsychotic Medications Pt discharged on 2 or more routine antipsychotic medications: No
[2016-12-15] MEDS: Pantoprazole 20 mg EC Tab PO SCH (09:05)
[2016-12-15] MEDS: Buprenorphine Hydrochloride 2 mg SL SCH (09:11)
[2016-12-15 10:34] VITALS: BP 144/80; O2SAT 99
== END 2016-12-15 10:45 | disposition home or self-care (01) | DRG 744 ==
LOC: C.ER 13:56 → C.7D 15:52
PROVIDERS: ADMIT Psychiatry & Neurology Psychiatry; ATTEND Psychiatry & Neurology Psychiatry
PROC: HZ2ZZZZ Detoxification Services for Substance Abuse Treatment (ICD-10-PCS; principal; 2016-12-11)
PROC: HZ52ZZZ Individual Psychotherapy for Substance Abuse Treatment, Cognitive-Behavioral (ICD-10-PCS; 2016-12-11)
PROC: HZ42ZZZ Group Counseling for Substance Abuse Treatment, Cognitive-Behavioral (ICD-10-PCS; 2016-12-11)
PROC: HZ56ZZZ Individual Psychotherapy for Substance Abuse Treatment, Psychoeducation (ICD-10-PCS; 2016-12-11)
PROC: HZ59ZZZ Individual Psychotherapy for Substance Abuse Treatment, Supportive (ICD-10-PCS; 2016-12-11)
DX: F11.23 Opioid dependence with withdrawal (principal); F25.9 Schizoaffective disorder, unspecified; I10 Essential (primary) hypertension; J44.9 Chronic obstructive pulmonary disease, unspecified; F32.9 Major depressive disorder, single episode, unspecified; J45.909 Unspecified asthma, uncomplicated; F17.210 Nicotine dependence, cigarettes, uncomplicated; Z59.0 Homelessness

== ENCOUNTER 2017-10-20 09:14 | Inpatient (IN) | payer MEDICAID ==
[2017-10-20 09:21] VITALS: BMI 25.7
--- NOTE | 2017-10-20 09:40 | C.PDOC ---
History Of Present Illness 62 y/o F c PMHx COPD, HTN, "heart trouble," heroin abuse p/w epigastric pain and shortness of breath since last night. States symptoms began at rest. Epigastric pain is intermittent, nonradiating, associated with nausea. She states shortness of breath is worse when laying flat and has noticed increased swelling of both legs. BP on arrival noted to be 200/130, patient states is normal for her and sometimes higher than that. Denies fever, chills, diarrhea, cocaine use. Time Seen by Provider: 10/20/17 09:37 Chief Complaint (Nursing): Shortness Of Breath Past Medical History Vital Signs: Last Vital Signs Temp 98.8 F 10/20/17 09:30 Pulse 84 10/20/17 14:14 Resp 20 10/20/17 14:14 BP 186/117 H 10/20/17 14:30 Pulse Ox 93 L 10/20/17 14:14 - Medical History PMH: Asthma, COPD (asthma), HTN Denies: Diabetes, Hepatitis, HIV, Chronic Kidney Disease, Seizures, Sexually Transmitted Disease Surgical History: Cholecystectomy - [facility] Procedures ASSISTANCE WITH RESPIRATORY VENTILATION, 24-96 HRS, CPAP (07/14/16) CONTINUOUS INVASIVE MECHANICAL VENTILATION =/>96 CONSEC HRS (07/25/14) DETOXIFICATION SERVICES FOR SUBSTANCE ABUSE TREATMENT (12/11/16) DRUG DETOXIFICATION (07/25/14) EXCISION OF RIGHT PLEURA, PERC ENDO APPROACH, DIAGN (03/26/15) EXCISION OF RIGHT UPPER LOBE BRONCHUS, PERC APPROACH, DIAGN (03/26/15) EXTRACTION OF RIGHT PLEURA, PERCUTANEOUS ENDOSCOPIC APPROACH (03/26/15) GROUP PHP [employer] WEB DEVELOPER FOR SUBSTANCE ABUSE, COGNITIVE BEHAVIORAL (12/11/16) INDIV PHP [employer] WEB DEVELOPER FOR SUBSTANCE ABUSE TREATMENT, PSYCHOEDUCATION (10/27/16) INDIV PSYCHOTHERAPY FOR SUBSTANCE ABUSE TREATMENT, SUPPORT (12/11/16) INDIV PSYCHOTHERAPY FOR SUBSTANCE ABUSE, COGNITIV BEHAVIORAL (12/11/16) INDIV PSYCHOTHERAPY FOR SUBSTANCE ABUSE, PSYCHOEDUCATION (12/11/16) INFLUENZA VACCINATION (06/25/14) INSERT ENDOTRACHEAL TUBE (07/25/14) Family History: States: Unknown Family Hx - Social History Hx Tobacco Use: Yes Hx Alcohol Use: Yes Hx Substance Use: Yes - Immunization History Hx Tetanus Toxoid Vaccination: No Hx Influenza Vaccination: Yes Hx Pneumococcal Vaccination: No Review Of Systems Except As Marked, All Systems Reviewed And Found Negative. Constitutional: Negative for: Fever Gastrointestinal: Negative for: Diarrhea Physical Exam - Physical Exam Additional Physical Exam Comments: Gen: NAD, yawning Head: NC Eyes: PERRL ENT: MMM Neck: No JVD Chest: No tenderness CV: Regular rate, no S3 Lungs: Bibasilar crackles Abd: Epigastric tenderness without guarding Back: No midline tenderness Extremities: Bilateral lower extremity swelling, L worse than R Skin: No rash Neuro: Alert, no focal deficit ED Course And Treatment - Laboratory Results Result Diagrams: 10/20/17 09:45 10/20/17 09:45 Medical Decision Making Medical Decision Making: EKG NSR 90 bpm, LBBB, no concordan ST elevations. 1051 CXR FINDINGS: LUNGS: New right basilar opacity. Possible pneumonia. Likely lower lobe as the right heart border is not silhouetted. Follow-up advised. No other abnormal opacity elsewhere. PLEURA: No significant pleural effusion identified, no pneumothorax apparent. CARDIOVASCULAR: Normal. OSSEOUS STRUCTURES: No significant abnormalities. VISUALIZED UPPER ABDOMEN: Normal. OTHER FINDINGS: None. IMPRESSION: Probable right lower lobe infiltrate. Possible pneumonia. Followup advised. CTA no PE. Antibiotics administered and Fluid bolus. Patient's history of CHF questionable, echo recently shows normal EF. Dr. whitney accepts patient to medical service. vice president for philanthropy paged. Disposition - Disposition Disposition: HOSPITALIZED Disposition Time: 14:33 Condition: GUARDED Forms: [facility] ([place]ian) - POA Core Measure Indicators: Pneumonia - Clinical Impression Clinical Impression: Pneumonia
[2017-10-20] MEDS ORDERED: cefTRIAXone IV 1 gm in Dextros 50 ML IVPB ONE ×2 (09:54→10:32)
[2017-10-20] MEDS ORDERED: Azithromycin 500 MG in Sodium Chloride 0.9% 250 ML IVPB STA (09:54)
[2017-10-20 10:00] LABS: ALB/GLOB RATIO 0.9 (1.0-2.1); ALBUMIN 4.7 g/dL (3.5-5.0); ALT/SGPT 24 U/L (9-52); AST/SGOT 25 U/L (14-36); BLOOD UREA NITROGEN 13 mg/dL (7-17); CALCIUM 10.3 mg/dl (8.6-10.4); GFR AFRICAN-AMERICAN > 60; GFR NON-AFRICAN AMERICAN > 60; LIPASE 60 U/L (23-300)
[2017-10-20 10:02] LABS: BASO % 0.3 % (0.0-2.0); LYMPH # 0.9 K/uL (1.0-4.3); LYMPH % 8.5 % (20.0-40.0); MEAN CORPUSCULAR HEMOGLOBIN 29.5 pg (27.0-31.0); MEAN CORPUSCULAR HGB CONC 34.6 g/dL (33.0-37.0); MEAN PLATELET VOLUME 8.3 fL (7.2-11.7); MONO # 0.1 K/uL (0.0-0.8); MONO % 1.2 % (0.0-10.0); NRBC % 0.2 % (0.0-2.0); PLATELET COUNT 272 K/uL (130-400); RBC 5.56 Mil/uL (3.80-5.20); RED CELL DISTRIBUTION WIDTH 15.2 % (11.5-14.5)
[2017-10-20 10:14] LABS: B-TYPE NATRIURETIC PEPTIDE 1500 pg/mL (0-900); CK-MB 1.73 ng/mL (0.0-3.38); HEMOGLOBIN 16.4 g/dL (11.0-16.0); MEAN CELL VOLUME 85.5 fL (81.0-99.0)
[2017-10-20 10:29] LABS: MONOCYTE 1 % (0-10); TOTAL CELLS COUNTED 100
[2017-10-20 10:30] LABS: LYMPHOCYTE 10 % (20-40); NEUTROPHIL 89 % (50-75); PLATELET ESTIMATE NORMAL (NORMAL)
[2017-10-20 10:32] LABS: SQUAMOUS EPITHIAL < 1 /hpf (0-5); URINE BILIRUBIN NEGATIVE (NEGATIVE); URINE BLOOD NEGATIVE (NEGATIVE); URINE CLARITY Clear (Clear); URINE COLOR Yellow (YELLOW); URINE GLUCOSE (UA) 2+ mg/dL (Normal); URINE LEUKOCYTE ESTERASE NEG Leu/uL (Negative); URINE UROBILINOGEN NORMAL mg/dL (0.2-1.0)
[2017-10-20] MEDS ORDERED: Alum-Mag Hydrox-Simethicone Susp (30 mL) PO STA (10:34)
[2017-10-20] MEDS ORDERED: Aluminum Hydroxide/Magnesium Hydroxide Susp (30 mL) ONE (10:40)
[2017-10-20 10:52] LABS: URINE PROTEIN 3+ mg/dL (NEGATIVE)
[2017-10-20 10:53] LABS: BARBITURATES, UR NEGATIVE (NEGATIVE); BENZODIAZEPINES, UR NEGATIVE (NEGATIVE); PHENCYCLIDINE, UR NEGATIVE (NEGATIVE)
--- NOTE | 2017-10-20 10:53 | RAD ---
HISTORY: dyspnea COMPARISON: 11/21/2016 FINDINGS: LUNGS: New right basilar opacity. Possible pneumonia. Likely lower lobe as the right heart border is not silhouetted. Follow-up advised. No other abnormal opacity elsewhere. PLEURA: No significant pleural effusion identified, no pneumothorax apparent. CARDIOVASCULAR: Normal. OSSEOUS STRUCTURES: No significant abnormalities. VISUALIZED UPPER ABDOMEN: Normal. OTHER FINDINGS: None. IMPRESSION: Probable right lower lobe infiltrate. Possible pneumonia. Followup advised.
[2017-10-20 10:57] LABS: OPIATES, UR POSITIVE (NEGATIVE)
[2017-10-20 11:32] LABS: INR 1.1; PROTHROMBIN TIME 12.9 SECONDS (9.7-12.2)
[2017-10-20] MEDS ORDERED: Nitroglycerin 2% Ointment Foilpak UD TOP STA (12:02)
[2017-10-20] MEDS ORDERED: Nitroglycerin 2% Ointment Foilpak UD TOP ONE (12:05)
[2017-10-20] MEDS ORDERED: Sodium Chloride 0.9% 1,000 ML IV STA (12:22)
[2017-10-20] MEDS ORDERED: Iodixanol 320 MG/ML 100 ML BOTTLE IV ONE (13:02)
--- NOTE | 2017-10-20 13:03 | VASCLAB ---
PROCEDURE: Left Lower Extremity Venous Duplex Exam. HISTORY: L leg swelling PRIORS: None. TECHNIQUE: Left common femoral, femoral, popliteal and posterior tibial, peroneal and great saphenous veins were evaluated. Flow was assessed with color Doppler, compressibility, assessment of phasic flow and augmentation response. Report prepared by DEBORAH Tidwell, RVT FINDINGS: LEFT: 1. Common Femoral Vein: 1.1. Compressibility - Fully compressible: Thrombus - None : Flow - Phasic: Augmentation -Normal: Reflux - None. 2. Femoral Vein: 2.1. Compressibility - Fully compressible: Thrombus - None: Flow - Phasic: Augmentation -Normal: Reflux - None. 3. Popliteal Vein: 3.1. Compressibility - Fully compressible: Thrombus - None: Flow - Phasic: Augmentation -Normal: Reflux - None. 4. Posterior Tibial Vein: 4.1. Compressibility - Fully compressible: Thrombus - None: Flow - Phasic: Augmentation -Normal: Reflux - None. 5. Peroneal Vein: 5.1. Compressibility - Fully compressible: Thrombus - None: Flow - Phasic: Augmentation -Normal: Reflux - None. 6. Great Saphenous Vein: 6.1. Compressibility - Fully compressible: Thrombus - None: Flow - Phasic: Augmentation - Normal: Reflux - None. OTHER FINDINGS: IMPRESSION: No evidence of deep or superficial vein thrombosis of the left lower extremity with excellent venous flow. Normal valve function noted of the left side. Normal venous flow noted in the right common femoral vein.
[2017-10-20] MEDS ORDERED: Labetalol 25mg/5ml Syringe IVP STA ×2 (13:39→14:52)
[2017-10-20] MEDS ORDERED: Labetalol 25mg/5ml Syringe ONE ×2 (13:42→15:02)
--- NOTE | 2017-10-20 14:59 | CT ---
PROCEDURE: CT Chest with contrast (Pulmonary Angiogram) HISTORY: dyspnea, r/o PE COMPARISON: None available. TECHNIQUE: Axial computed tomography images were obtained of the chest in the pulmonary arterial phase of enhancement. Coronal and sagittal reformatted images were created and reviewed. Intravenous contrast dose: 100 cc Visipaque 320 Radiation dose: Total exam DLP = 434.72 mGy-cm. This CT exam was performed using one or more of the following dose reduction techniques: Automated exposure control, adjustment of the mA and/or kV according to patient size, and/or use of iterative reconstruction technique. FINDINGS: PULMONARY ARTERIES: Unremarkable. No pulmonary embolism. AORTA: No acute findings. No thoracic aortic aneurysm. LUNGS: Focal consolidation left lower lobe. Small airways disease in right lower lobe with tree in bud presentation. Nonspecific. No pulmonary mass. PLEURAL SPACES: Unremarkable. No effusion or pneuomothorax. HEART: Unremarkable. No cardiomegaly. No significant pericardial effusion. LYMPH NODES: Mild right hilar lymphadenopathy, nonspecific. BONES, CHEST WALL: Unremarkable. No fracture or destructive lesion OTHER FINDINGS: Unremarkable. IMPRESSION: No evidence of pulmonary embolism. Left lower lobe consolidation. Small airways disease, nonspecific, in right lower lobe. Mild right hilar lymphadenopathy. Otherwise unremarkable.
--- NOTE | 2017-10-20 16:27 | CP.PCM.HP ---
History of Present Illness - History of Present Illness History of Present Illness: Patient was seen and examined in ED Bed 10 . Patient is a FULL CODE status. Patient's emergency contact is her brother, Yousif Painting. His address is [address] [place] [address]. He can be reached at [phone]. CC: I'm in pain HPI: 62 year old female with past medical history significant for asthma, HTN and hypercholesterolemia presents with complaints of cough and cold symptoms for the past couple of days. Patient states that her brother has been sick at home. Per ED note, patient admitted to epigastric pain and shortness of breath the night prior while at rest. Patient has been using heroin as well. Patient not able to provide information regarding use. Limited history and review of symptoms at this time due to waxing and waning alertness. PMHx- as stated above PSHx- Cholecystectomy at 20 years of age Fam Hx- CVA, HTN Meds- Negative Social- Smoking since the age of 15, snorts heroin, denies IVDA. She has been using heroin for 13 years. She denies current alcohol use, though she has used Allergies- NKDA Present on Admission - Present on Admission Any Indicators Present on Admission: No Review of Systems - Review of Systems Systems not reviewed;Unavailable: Other (Limited due to waxing and waning mentation) - Constitutional Constitutional: absent: Headache - Cardiovascular Cardiovascular: Dyspnea. absent: Syncope - Respiratory Respiratory: Cough, Change in Mucous Color. absent: Wheezing, Snoring - Gastrointestinal Gastrointestinal: absent: Nausea, Vomiting Past Patient History - Infectious Disease Hx of Infectious Diseases: None - Past Medical History & Family History Past Medical History?: Yes - Past Social History Smoking Status: Heavy Smoker > 10 Cigarettes Daily - CARDIAC Hx Hypertension: Yes - PULMONARY Hx Asthma: Yes Hx Chronic Obstructive Pulmonary Disease (COPD): Yes (asthma) - NEUROLOGICAL Hx Seizures: No - HEENT Hx HEENT Problems: No - RENAL Hx Chronic Kidney Disease: No - ENDOCRINE/METABOLIC Hx Endocrine Disorders: No - HEMATOLOGICAL/ONCOLOGICAL Hx Human Immunodeficiency Virus (HIV): No - INTEGUMENTARY Hx Dermatological Problems: No - MUSCULOSKELETAL/RHEUMATOLOGICAL Hx Falls: No - GASTROINTESTINAL Hx Gastrointestinal Disorders: No Hx Gastroesophageal Reflux: Yes - GENITOURINARY/GYNECOLOGICAL Hx Sexually Transmitted Disorders: No - PSYCHIATRIC Hx Substance Use: Yes - SURGICAL HISTORY Hx Cholecystectomy: Yes - ANESTHESIA Hx Anesthesia: Yes Hx Anesthesia Reactions: No Hx Malignant Hyperthermia: No Meds Allergies/Adverse Reactions: Allergies Allergy/AdvReac Type Severity Reaction Status Date / Time No Known Allergies Allergy Verified 12/11/16 13:58 Physical Exam - Constitutional Appears: Non-toxic, No Acute Distress - Head Exam Head Exam: ATRAUMATIC, NORMAL INSPECTION, NORMOCEPHALIC - Eye Exam Eye Exam: EOMI, Normal appearance, PERRL Pupil Exam: NORMAL ACCOMODATION - ENT Exam ENT Exam: Mucous Membranes Moist, Normal Exam - Respiratory Exam Respiratory Exam: Decreased Breath Sounds (right lower lung field), NORMAL BREATHING PATTERN - Cardiovascular Exam Cardiovascular Exam: +S1, +S2 - GI/Abdominal Exam GI & Abdominal Exam: Normal Bowel Sounds, Soft. absent: Tenderness - Extremities Exam Extremities exam: Positive for: full ROM - Back Exam Back exam: FULL ROM - Neurological Exam Neurological exam: Altered, CN II-XII Intact - Psychiatric Exam Psychiatric exam: Flat Affect - Skin Skin Exam: Dry, Intact, Warm Results - Vital Signs Recent Vital Signs: Last Vital Signs Temp 98.8 F 10/20/17 09:30 Pulse 88 10/20/17 15:09 Resp 18 10/20/17 15:09 BP 155/82 H 10/20/17 15:18 Pulse Ox 93 L 10/20/17 15:09 - Labs Result Diagrams: 10/20/17 09:45 10/20/17 09:45 Labs: Laboratory Results - last 24 hr 10/20/17 10/20/17 10/20/17 09:45 09:45 10:22 WBC 10.0 D RBC 5.56 H Hgb 16.4 H D Hct 47.5 H MCV 85.5 D MCH 29.5 MCHC 34.6 RDW 15.2 H Plt Count 272 MPV 8.3 Neut % (Auto) 90.0 H Lymph % (Auto) 8.5 L Henry % (Auto) 1.2 Eos % (Auto) 0.0 Baso % (Auto) 0.3 Neut # (Auto) 9.0 H Lymph # (Auto) 0.9 L Henry # (Auto) 0.1 Eos # (Auto) 0.0 Baso # (Auto) 0.0 Neutrophils % (Manual) 89 H Lymphocytes % (Manual) 10 L Monocytes % (Manual) 1 Platelet Estimate Normal PT INR APTT D-Dimer, Quantitative Sodium 141 Potassium 3.8 Chloride 95 L Carbon Dioxide 28 Anion Gap 23 H BUN 13 Creatinine 0.8 Est GFR ( Amer) > 60 Est GFR (Non-Af Amer) > 60 Random Glucose 162 H Calcium 10.3 Total Bilirubin 1.6 H AST 25 ALT 24 Alkaline Phosphatase 131 H Total Creatine Kinase 84 CK-MB (Mass) 1.73 Troponin I < 0.0120 NT-Pro-B Natriuret Pep 1500 H Total Protein 9.8 H Albumin 4.7 Globulin 5.0 H Albumin/Globulin Ratio 0.9 L Lipase 60 Urine Color Yellow Urine Clarity Clear Urine pH 7.0 Ur Specific [place] 1.017 Urine Protein 3+ H Urine Glucose (UA) 2+ H Urine Ketones 1+ H Urine Blood Negative Urine Nitrate Negative Urine Bilirubin Negative Urine Urobilinogen Normal Ur Leukocyte Esterase Neg Urine WBC (Auto) 2 Urine RBC (Auto) 1 Ur Squamous Epith Cells < 1 Urine Opiates Screen Urine Methadone Screen Ur Barbiturates Screen Ur Phencyclidine Scrn Ur Amphetamines Screen U Benzodiazepines Scrn U Oth Cocaine Metabols U Cannabinoids Screen 10/20/17 10/20/17 10:22 10:51 WBC RBC Hgb Hct MCV MCH MCHC RDW Plt Count MPV Neut % (Auto) Lymph % (Auto) Henry % (Auto) Eos % (Auto) Baso % (Auto) Neut # (Auto) Lymph # (Auto) Henry # (Auto) Eos # (Auto) Baso # (Auto) Neutrophils % (Manual) Lymphocytes % (Manual) Monocytes % (Manual) Platelet Estimate PT 12.9 H INR 1.1 APTT 36 H D-Dimer, Quantitative 1155 H Sodium Potassium Chloride Carbon Dioxide Anion Gap BUN Creatinine Est GFR ( Amer) Est GFR (Non-Af Amer) Random Glucose Calcium Total Bilirubin AST ALT Alkaline Phosphatase Total Creatine Kinase CK-MB (Mass) Troponin I NT-Pro-B Natriuret Pep Total Protein Albumin Globulin Albumin/Globulin Ratio Lipase Urine Color Urine Clarity Urine pH Ur Specific [place] Urine Protein Urine Glucose (UA) Urine Ketones Urine Blood Urine Nitrate Urine Bilirubin Urine Urobilinogen Ur Leukocyte Esterase Urine WBC (Auto) Urine RBC (Auto) Ur Squamous Epith Cells Urine Opiates Screen Positive H Urine Methadone Screen Negative Ur Barbiturates Screen Negative Ur Phencyclidine Scrn Negative Ur Amphetamines Screen Negative U Benzodiazepines Scrn Negative U Oth Cocaine Metabols Negative U Cannabinoids Screen Negative Assessment & Plan (1) Pneumonia Assessment and Plan: Afebrile, no leukocytosis noted Initially elevated HR- later stabilized. Respirations stable. No signs of hypotension. CXR performed 10/19/17 shows infiltrates in lower lobe. Confirmed Left lower lobe consolidation on Chest CT. Refer to complete report. Patient given dose of Azithromycin and Rocephin in ED Continue Azithromycin and Rocephin daily (Started 10/20/17) On Florastor F/U AM labs, Influenza, Mycoplasma, Strep A, Legionella studies Confirmed sick contacts Continue to monitor Status: Acute (2) Uncontrolled hypertension Assessment and Plan: Likely uncontrolled- Patient is aware of HTN history but does not take any medications Likely secondarily due to heroin withdrawal as well Received fluid bolus in the ED on initial evaluation Received Labetalol 20 mg IV in ED Received Hydralazine 10 mg IV on the floor after [employer] was called due to uncontrolled HTN Norvasc 5 mg to start in the AM Hydralazine 25 mg PO Q6H scheduled as recommended by medical team following rapid response on the floor. Hydralazine IV PRN dosing as well. (Hold for systolic under 110) Monitor closely overnight. Status: Chronic (3) Dyspnea Assessment and Plan: History of asthma D-Dimer elevated Chest CT- negative for pulmonary embolism- Refer to full report EKG shows NSR with nonspecific left bundle branch - uchanged from EKG obtained one year prior. NO ST segment elevations noted F/U echo Elevated BNP Duonebs and oxygen as needed Status: Acute (4) Heroin withdrawal Assessment and Plan: 5 mg Methadone dose initiated Consult to Psych for management. Patient counseled extensively- Patient is considering quitting Status: Acute (5) Prophylactic measure Assessment and Plan: SCDs Lovenox 40 SC daily No current indications for GI prophylaxis at this time Discussed with attending. Management and planning per attending. Status: Acute
--- NOTE | 2017-10-20 18:00 | PCM.RRT ---
DIRECTOR OF LOGISTICS Nurses Assessment - Situation Date: 10/20/17 Time DIRECTOR OF LOGISTICS was called: 16:59 DIRECTOR OF LOGISTICS Responder Arrival Time:: 17:00 DIRECTOR OF LOGISTICS Location:: Med/Surg Room Number: 662a DIRECTOR OF LOGISTICS Reason for Call: Hypertension DIRECTOR OF LOGISTICS Called By: RN - IV IV Inserted during DIRECTOR OF LOGISTICS?: No - Respiratory DIRECTOR OF LOGISTICS Delivery Method: Nasal Cannula @L/min Received Nebulizer Treatments: No Was the Patient Ventilated with Bag/Mask 100% O2?: No Secretions Suctioned?: No Was the Patient Intubated?: No Was the Patient Placed on a Ventilator?: No - Ventilator Settings Ventilator Respiratory Rate Settin - Medication Medications Administered During DIRECTOR OF LOGISTICS: hydralazine 10mg ivpush stat - Diagnostic Test Ordered EKG: No Chest X-Ray: No CT Scan: No CPR started during DIRECTOR OF LOGISTICS?: No - Vital Signs Vital Signs: Rapid Response Vital Sign Blood Pressure 203/125 Pulse Rate 78 Respiratory Rate 18 Temperature 98 F - Time DIRECTOR OF LOGISTICS Ended Time DIRECTOR OF LOGISTICS Ended: 17:07 - Vital Signs at end of DIRECTOR OF LOGISTICS Vital Signs at end of DIRECTOR OF LOGISTICS: Rapid Response End Vital Sign Blood Pressure 214/138 Pulse Rate 90 Respiratory Rate 20 Temperature 98 F - Recommendations 5) DIRECTOR OF LOGISTICS Level of Care Recommendations: Remain in current setting Notifications: Attending Physician I.Reason for DIRECTOR OF LOGISTICS - A) Acute Change in Patient: (Select all that apply): Staff member or family is worried about patient - Neurological Status (Select all that apply): Responsive - Respiratory Oxygen Delivery Method: Nasal Cannula @L/min - Constitutional Appears: Non-toxic - Head Head Exam: ATRAUMATIC, NORMAL INSPECTION - Eyes Eye Exam: EOMI, Normal appearance - Respiratory Exam Respiratory Exam: Decreased Breath Sounds, NORMAL BREATHING PATTERN. absent: Wheezes - Cardiovascular Exam Cardiovascular Exam: +S1, +S2 - GI/Abdominal Exam GI & Abdominal Exam: Soft, Normal Bowel Sounds - Neurological Exam Neurological Exam: Alert, Awake, Oriented x3 - Extremities Exam Extremities Exam: Full ROM, Normal Capillary Refill Plan - Assessment of Findings&Treatment Plan DIRECTOR OF LOGISTICS called by nursing team at 16:59 due to elevated blood pressure. Patient was just evaluated by board writer within the past half hour. Patient with elevated blood pressure with systolic noted in 200s. Patient administered stat dose of Hydralazine 10 mg IV PRN PO dosing of Hydralazine added on board Norvasc added on to be started the following day. Patient given Methadone for heroin withdrawal. Patient was responsive and able to follow commands.
[2017-10-20] MEDS: Saccharomyces Boulardi 250 mg Cap PO SCH (18:35)
[2017-10-20] MEDS: Albuterol-Ipratrop 3 mg / 0.5 (3 ml) UD INH PRN (20:22)
[2017-10-20] MEDS ORDERED: Metoprolol 1 mg/ml Inj IVP ONE (20:26)
--- NOTE | 2017-10-20 23:44 | CARD ---
APPROVED REPORT EKG Measurement Heart [id number] <Conclusion> Normal sinus rhythm Possible Left atrial enlargement Left axis deviation Left bundle branch block Abnormal ECG
[2017-10-21] MEDS: Albuterol-Ipratrop 3 mg / 0.5 (3 ml) UD INH PRN (05:30)
[2017-10-21 07:53] LABS: ALB/GLOB RATIO 0.9 (1.0-2.1); ALBUMIN 4.6 g/dL (3.5-5.0); CALCIUM 10.1 mg/dl (8.6-10.4)
[2017-10-21 08:03] LABS: BASO % 0.3 % (0.0-2.0); HEMOGLOBIN 17.1 g/dL (11.0-16.0); LYMPH # 1.3 K/uL (1.0-4.3); LYMPH % 12.2 % (20.0-40.0); MEAN CELL VOLUME 86.1 fL (81.0-99.0); MEAN CORPUSCULAR HEMOGLOBIN 29.7 pg (27.0-31.0); MEAN CORPUSCULAR HGB CONC 34.5 g/dL (33.0-37.0); MEAN PLATELET VOLUME 8.4 fL (7.2-11.7); MONO # 0.6 K/uL (0.0-0.8); NEUT # 8.6 K/uL (1.8-7.0); NEUT % 81.5 % (50.0-75.0); NRBC % 0.2 % (0.0-2.0); RBC 5.75 Mil/uL (3.80-5.20); RED CELL DISTRIBUTION WIDTH 15.3 % (11.5-14.5); WHITE BLOOD COUNT 10.6 K/uL (4.8-10.8)
[2017-10-21] MEDS ORDERED: Potassium Chloride 20 mEq/15 ml LIQ UD PO ONE ×2 (08:47→10:20)
[2017-10-21] MEDS ORDERED: Azithromycin 500 MG in Sodium Chloride 0.9% 250 ML IVPB SCH (10:00)
[2017-10-21] MEDS: Saccharomyces Boulardi 250 mg Cap PO SCH ×2 (10:13→18:29)
[2017-10-21] MEDS: Enoxaparin 40 mg Syringe SC SCH (10:13)
[2017-10-21] MEDS ORDERED: Sodium Chloride 0.9% 1,000 ML IV ONE ×2 (11:00→13:56)
--- NOTE | 2017-10-21 13:31 | CP.PCM.PN ---
Subjective - Date & Time of Evaluation Date of Evaluation: 10/21/17 Time of Evaluation: 13:25 - Subjective Subjective: Patient seen and examined at bedside. States she is feeling better, no vomiting, belly pain has improved. Breathing has improved Less hypertensive states she wants detox Objective - Vital Signs/Intake and Output Vital Signs (last 24 hours): Temp Pulse Resp BP Pulse Ox 98.9 F 120 H 20 153/87 H 96 10/21/17 07:00 10/21/17 07:00 10/21/17 07:00 10/21/17 07:00 10/21/17 07:00 Intake and Output: 10/21/17 10/21/17 06:59 18:59 Intake Total 590 Output Total 2500 Balance -1910 - Medications Medications: Current Medications Albuterol/Ipratropium (Duoneb 3 Mg/0.5 Mg (3 Ml) Ud) 3 ml INH RQ4 PRN PRN Reason: Wheezing Last Admin: 10/21/17 05:30 Dose: 3 ml Clonidine HCl (Catapres) 0.2 mg PO BID [facility] Last Admin: 10/21/17 10:13 Dose: 0.2 mg Enoxaparin Sodium (Lovenox) 40 mg SC DAILY [facility] Last Admin: 10/21/17 10:13 Dose: 40 mg Hydralazine HCl (Apresoline) 10 mg IVP Q6H PRN PRN Reason: Other Last Admin: 10/21/17 06:51 Dose: 10 mg Azithromycin 500 mg/ Sodium (Chloride) 250 mls @ 250 mls/hr IVPB DAILY [facility] PRN Reason: Protocol Ceftriaxone Sodium 1 gm/ (Sodium Chloride) 100 mls @ 100 mls/hr IVPB DAILY [facility] PRN Reason: Protocol Last Admin: 10/21/17 10:14 Dose: 100 mls/hr Saccharomyces Boulardii (Florastor) 250 mg PO BID [facility] Last Admin: 10/21/17 10:13 Dose: 250 mg - Labs Labs: 10/21/17 07:20 10/21/17 07:20 PT 12.9 SECONDS (9.7-12.2) H 10/20/17 10:51 INR 1.1 10/20/17 10:51 APTT 36 SECONDS (21-34) H 10/20/17 10:51 - Constitutional Appears: Well - Head Exam Head Exam: ATRAUMATIC, NORMAL INSPECTION, NORMOCEPHALIC - Eye Exam Eye Exam: EOMI, Normal appearance, PERRL Pupil Exam: NORMAL ACCOMODATION, PERRL - ENT Exam ENT Exam: Mucous Membranes Moist, Normal Exam - Neck Exam Neck Exam: Full ROM, Normal Inspection. absent: Lymphadenopathy - Respiratory Exam Respiratory Exam: Clear to Ausculation Bilateral, NORMAL BREATHING PATTERN - Cardiovascular Exam Cardiovascular Exam: REGULAR RHYTHM, +S1, +S2. absent: Murmur - GI/Abdominal Exam GI & Abdominal Exam: Soft, Normal Bowel Sounds. absent: Tenderness - Extremities Exam Extremities Exam: Full ROM, Normal Capillary Refill, Normal Inspection. absent : Joint Swelling, Pedal Edema - Back Exam Back Exam: NORMAL INSPECTION - Neurological Exam Neurological Exam: Alert, Awake, CN II-XII Intact, Normal Gait, Oriented x3 - Psychiatric Exam Psychiatric exam: Normal Affect, Normal Mood - Skin Skin Exam: Dry, Intact, Normal Color, Warm Assessment and Plan - Assessment and Plan (Free Text) Assessment: Pneumonia CXR - infiltrates in lower lobe. Confirmed Left lower lobe consolidation on Chest CT. Azithromycin and Rocephin daily (Started 10/20/17) Florastor Uncontrolled hypertension Hydralazine IV PRN dosing as well. (Hold for systolic under 110) Clonidine 0.2 mg PO BID Dyspnea History of asthma Chest CT- negative for pulmonary embolism F/U echo Elevated BNP Duonebs Q4 PRN Heroin withdrawal 5 mg Methadone dose initiated Psych ([place]) - will admit to psych inpatient when medically cleared Prophylactic measure SCDs Lovenox 40 SC daily No current indications for GI prophylaxis at this time
--- NOTE | 2017-10-21 13:53 | PCM.PSYCH ---
Initial Psychiatric Evaluation - Initial Psychiatric Evaluation Type of Admission: Voluntary Legal Status: Capacity Chief Complaint (in patient's own words): Consult for heroin withdrawal History of Present Illness and Precipitating Events: Patient seen, chart reviewed, and discussed with nurse. This is a 62 year old AA female, who is unemployed and lives with her brother, who came to the ED for cough and cold symptoms on 10/20/17. Patient has history of opioid use disorder. Patient states she snorts 1-6 bags of heroin per day. Patient has been using for a long time. Patient attended detox at [facility] 12/12/16-. Patient states she got depressed and started using again. Patient states she currently has withdrawal symptoms, including pain. Patient states she also feels very depressed. She states, "I am not right in the head." Patient states she had suicidal ideation 1 week ago. She denies history of suicide attempt. Patient states she sometimes has auditory and visual hallucinations. She also admits to racing thoughts, where she feels her head is traveling a mile a minute. Patient denies anxiety or feelings of paranoia. Patient denies past psychiatric hospitalizations. medical history: asthma, HTN, high cholesterol psych history: opioid use disorder social history: Lives with brother. Not currently working. Denies alcohol consumption currently. Current Medications: Active Medications Generic Name Dose Route Start Last Admin Trade Name Freq PRN Reason Stop Dose Admin Albuterol/Ipratropium 3 ml 10/20/17 17:47 10/21/17 05:30 Duoneb 3 Mg/0.5 Mg (3 Ml) Ud INH 3 ml RQ4 PRN Administration Wheezing Clonidine HCl 0.2 mg 10/21/17 10:00 10/21/17 10:13 Catapres PO 0.2 mg BID MONTY Administration Enoxaparin Sodium 40 mg 10/21/17 10:00 10/21/17 10:13 Lovenox SC 40 mg DAILY MONTY Administration Hydralazine HCl 10 mg 10/20/17 17:09 10/21/17 06:51 Apresoline IVP 10 mg Q6H PRN Administration Other Azithromycin 500 mg/ Sodium 250 mls @ 250 mls/hr 10/21/17 10:00 Chloride IVPB DAILY MONTY Protocol Ceftriaxone Sodium 1 gm/ 100 mls @ 100 mls/hr 10/21/17 10:00 10/21/17 10:14 Sodium Chloride IVPB 100 mls/hr DAILY MONTY Administration Protocol Saccharomyces Boulardii 250 mg 10/20/17 18:00 10/21/17 10:13 Florastor PO 250 mg BID MONTY Administration Past Psychiatric History - Past Psychiatric History Previous Treatment History: None History of ETOH/Drug Use: Opioid Use Disorder Pertinent Medical Hx (Current Medical&Sleep Prob, Allergies): Allergies Allergy/AdvReac Type Severity Reaction Status Date / Time No Known Allergies Allergy Verified 12/11/16 13:58 Albuterol HFA [Ventolin HFA 90 mcg/actuation (8 g)] 0.09 mg IH Q4 PRN #1 puff ARIPiprazole [Abilify] 5 mg PO HS #30 tab 12/15/16 Albuterol HFA [Ventolin HFA 90 mcg/actuation (8 g)] 1 puff INH RQ4 PRN #1 inhaler 12/15/16 Aspirin [Aspirin Chewable] 81 mg PO DAILY #30 12/15/16 Carvedilol [Coreg] 25 mg PO BID #60 tab 12/15/16 Mirtazapine [Remeron] 30 mg PO HS #30 tab 12/15/16 Pantoprazole [Protonix EC Tab] 20 mg PO DAILY #30 ect 12/15/16 Rosuvastatin Calcium [Crestor] 10 mg PO HS #30 tab 12/15/16 amLODIPine [Norvasc] 10 mg PO DAILY #30 tab 12/15/16 traZODone [Desyrel] 50 mg PO HS PRN #30 tab 12/15/16 Review of Systems - Review of Systems All systems: reviewed and no additional remarkable complaints except - Psychiatric Psychiatric: Auditory Hallucinations, Depression, Hallucinations, Hopelessness, Suicidal Ideation, Visual Hallucinations. absent: Anxiety, Paranoia Mental Status Examination - Personal Presentation Personal Presentation: Looks stated age - Affect Affect: Depressed - Motor Activity Motor Activity: Calm - Reliability in Providing Information Reliability in Providing Information: Fair - Speech Speech: Organized - Mood Mood: Depressed - Formal Thought Process Formal Thought Process: No Impairment - Obsessions/Compulsions Obsessions: No Compulsions: No - Cognitive Functions Orientation: Person, Place, Situation Sensorium: Drowsy Attention/Concentration: Attentive - Risk Risk: Withdrawal - Strength & Assets Inventory Strength & Assets Inventory: Family support DSM 5 DX - DSM 5 DSM 5 Diagnosis: Opioid Use Disorder, severe Opioid Withdrawal 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 - Smoking Cessation Smoking Cessation Initiated: No
--- NOTE | 2017-10-21 17:08 | CARD ---
APPROVED REPORT EXAM: LIMITED Two-dimensional and M-mode echocardiogram with Doppler and color Doppler. Other Information Technically limited study due to body habitus. INDICATION Dyspnea HEROIN ABUSE RISK FACTORS Hypertension M-Mode DIMENSIONS Left Atrium (MM)4.02 (2.5-4.0cm)IVSd1.63 (0.7-1.1cm) Aortic Root3.40 (2.2-3.7cm)LVDd5.10 (4.0-5.6cm) Aortic Cusp Exc.2.50 (1.5-2.0cm)PWd1.35 (0.7-1.1cm) FS (%) 24 %LVDs3.89 (2.0-3.8cm) LVEF (%)47 (>50%) Mitral Valve MV E Hbjruadm107.0cm/sE/A ratio0.0 TDI E/Lateral E'0.0E/Medial E'0.0 Tricuspid Valve TR Peak Orryggcl776ev/sTR Peak Gr.[id number] LEFT VENTRICLE The left ventricle is normal size. There is mild to moderate concentric left ventricular hypertrophy. The systolic function is mildly impaired. Septal hypokinesis Transmitral Doppler flow pattern is Grade I-abnormal relaxation pattern. RIGHT VENTRICLE The right ventricle is normal size. There is normal right ventricular wall thickness. The right ventricular systolic function is normal. ATRIA The left atrium size is normal. The right atrium size is normal. AORTIC VALVE The aortic valve is mildly thickened. No aortic regurgitation is present. There is no aortic valvular stenosis. MITRAL VALVE The mitral valve is moderately thickened. There is no mitral valve stenosis. There is no mitral valve regurgitation noted. TRICUSPID VALVE The tricuspid valve is normal in structure. There is no tricuspid valve regurgitation noted. GREAT VESSELS The aortic root is normal in size. The IVC is normal in size and collapses >50% with inspiration. PERICARDIAL EFFUSION There is no pericardial effusion. <Conclusion> The left ventricle is normal size. There is mild to moderate concentric left ventricular hypertrophy. The systolic function is mildly impaired. Septal hypokinesis Transmitral Doppler flow pattern is Grade I-abnormal relaxation pattern.
[2017-10-22] MEDS ORDERED: DiphenhydrAMINE 50 mg/ml Inj IVP ONE (07:07)
--- NOTE | 2017-10-22 07:09 | CP.PCM.PN ---
Subjective - Date & Time of Evaluation Date of Evaluation: 10/22/17 Time of Evaluation: 07:08 - Subjective Subjective: Patient seen and examined at bedside UO much better today States breathing is much improved denies any chest pain at this time Patient states she has suicidal ideation with no plan. Told nurse she did not want to live anymore. Psych was called. I placed the patient on 1:1 for suicide precautions. At this time patient is stable and medically cleared for transfer to psych. Objective - Vital Signs/Intake and Output Vital Signs (last 24 hours): Temp Pulse Resp BP Pulse Ox 98.6 F 104 H 20 156/92 H 96 10/21/17 23:05 10/21/17 23:30 10/21/17 23:05 10/21/17 23:05 10/21/17 23:05 Intake and Output: 10/22/17 10/22/17 06:59 18:59 Intake Total 420 Output Total 625 Balance -205 - Medications Medications: Current Medications Albuterol/Ipratropium (Duoneb 3 Mg/0.5 Mg (3 Ml) Ud) 3 ml INH RQ4 PRN PRN Reason: Wheezing Last Admin: 10/21/17 05:30 Dose: 3 ml Azithromycin (Zithromax) 250 mg PO DAILY [facility] PRN Reason: Protocol Stop: 10/26/17 10:01 Clonidine HCl (Catapres) 0.2 mg PO BID [facility] Last Admin: 10/21/17 18:29 Dose: 0.2 mg Diphenhydramine HCl (Benadryl) 25 mg IVP ONCE ONE Stop: 10/22/17 07:08 Enoxaparin Sodium (Lovenox) 40 mg SC DAILY [facility] Last Admin: 10/21/17 10:13 Dose: 40 mg Hydralazine HCl (Apresoline) 10 mg IVP Q6H PRN PRN Reason: Other Last Admin: 10/21/17 16:30 Dose: 10 mg Metoclopramide HCl (Reglan) 10 mg IVP ONCE ONE Stop: 10/22/17 07:08 Multivitamins/Minerals (Therapeutic-M Tab) 1 tab PO 0800 [facility] Saccharomyces Boulardii (Florastor) 250 mg PO BID [facility] Last Admin: 10/21/17 18:29 Dose: 250 mg Thiamine HCl (Vitamin B1 Tab) 100 mg PO BID [facility] - Labs Labs: 10/21/17 07:20 10/21/17 07:20 PT 12.9 SECONDS (9.7-12.2) H 10/20/17 10:51 INR 1.1 10/20/17 10:51 APTT 36 SECONDS (21-34) H 10/20/17 10:51 Assessment and Plan - Assessment and Plan (Free Text) Assessment: Pneumonia CXR - infiltrates in lower lobe. Confirmed Left lower lobe consolidation on Chest CT. Azithromycin 250 PO X 4 more doses Florastor Uncontrolled hypertension Hydralazine IV PRN dosing as well. (Hold for systolic under 110) Clonidine 0.2 mg PO BID Norvasc 10mg PO QD Dyspnea History of asthma Chest CT- negative for pulmonary embolism echo unremarkable, Normal EF Elevated BNP Duonebs Q4 PRN Heroin withdrawal 5 mg Methadone dose initiated Psych ([facility]) - will admit to psych inpatient when medically cleared Prophylactic measure SCDs Lovenox 40 SC daily No current indications for GI prophylaxis at this time Thiamine Multivitamin
[2017-10-22] MEDS: Multivitamin With Minerals Tab PO SCH (08:19)
[2017-10-22] MEDS: Enoxaparin 40 mg Syringe SC SCH (09:27)
[2017-10-22] MEDS: Saccharomyces Boulardi 250 mg Cap PO SCH ×2 (09:27→18:32)
[2017-10-22 11:32] LABS: CALCIUM 9.4 mg/dl (8.6-10.4)
[2017-10-22 11:33] LABS: BASO % 0.3 % (0.0-2.0); HEMOGLOBIN 15.6 g/dL (11.0-16.0); LYMPH # 1.7 K/uL (1.0-4.3); LYMPH % 20.2 % (20.0-40.0); MEAN CELL VOLUME 86.5 fL (81.0-99.0); MEAN CORPUSCULAR HEMOGLOBIN 29.5 pg (27.0-31.0); MEAN CORPUSCULAR HGB CONC 34.2 g/dL (33.0-37.0); MEAN PLATELET VOLUME 8.2 fL (7.2-11.7); MONO # 0.5 K/uL (0.0-0.8); MONO % 5.9 % (0.0-10.0); NEUT # 6.2 K/uL (1.8-7.0); NEUT % 73.6 % (50.0-75.0); NRBC % 0.1 % (0.0-2.0); RBC 5.28 Mil/uL (3.80-5.20); RED CELL DISTRIBUTION WIDTH 15.7 % (11.5-14.5); WHITE BLOOD COUNT 8.4 K/uL (4.8-10.8)
[2017-10-22] MEDS ORDERED: Albuterol HFA 90 mcg/actuation (8 g) INH PRN (17:45)
[2017-10-22] MEDS: Albuterol-Ipratrop 3 mg / 0.5 (3 ml) UD INH PRN (19:22)
--- NOTE | 2017-10-23 00:27 | PCM.BM ---
<La Gipson - Last Filed: 10/23/17 00:26> Treatment Plan Problems - Problems identified on initial assessmt Depression Date Initiated: 10/22/17 Time Initiated: 17:30 Assessment reference: NA Status: Active Suicidal Ideation Date Initiated: 10/22/17 Time Initiated: 17:30 Assessment reference: NA Status: Active Treatment assets and liabiliti Patient Assests: good support system, negotiates basic needs Patient Liabilities: substance abuse (Opiates) - Milieu Protocol Maintain good personal hygiene: daily Encourage regular showers, daily Remind patient to perform daily oral care, every shift Assist patient to perform ADL's Conduct patient checks and document Observation sheet: Q15 minutes Maintain personal safety: every shift Educate patient to report safety concerns to staff, every shift Monitor environment for contraband/sharps Medication safety: Monitor for expected outcome, potential side effects: every shift, Assess barriers to learning: every shift, Assess readiness for medication education: every shift Milieu Narrative: Opioid use disorder severe CBT Psychoeducation Supportive therapy, individual therapy Use [place] for abstinence Opioid withdrawal CBT Psychoeducation Supportive therapy, individual therapy Clonidine when necessary Methadone taper prn meds 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 <Bobbi Ontiveros - Last Filed: 10/23/17 11:09> - Diagnosis (1) MDD (major depressive disorder), recurrent episode Status: Acute Interventions: 10/23/17 11:09 * Assess/adjust medications daily and /or as needed * See patient on an individual basis 7x/week to assess symptoms of depression * Monitor for side effects & effectiveness of medications * (2) Heroin dependence Status: Acute Interventions: 10/23/17 11:10 * Assess 7x/week regarding severity of withdrawal * Educate regarding risks, benefits, side effects and alternatives of medications * Use Motivational Interviewing for abstinence * Use CBT for relapse prevention * Medication management for withdrawal symptoms * Encourage medication assisted treatment * <Raegan Monge - Last Filed: 10/23/17 11:14> Family Contact Family involvement: Family/SO is involved Family contact: Patient declines to allow family contact at present - Goals for Treatment Patient goals for treatment: "I don't know." Discharge/Continuing Care - Education Needs Education Needs: Patient Medication, Patient Coping Skills - Discharge Discharge Criteria: Tolerates medication w/o severe side effects, Reduction of target symptoms Discharge to:: Home, With Family - Treatment Team Participation Discussed with Family/SO: No Was Patient/Family/SO present at Treatment Team Meeting: Yes
[2017-10-23] MEDS: Multivitamin With Minerals Tab PO SCH ×2 (08:26→10:13)
[2017-10-23] MEDS: Saccharomyces Boulardi 250 mg Cap PO SCH ×2 (10:13→18:25)
--- NOTE | 2017-10-23 11:06 | PCM.PYCHPN ---
Psychiatric Progress Note - Psychiatric Progress Note Patient seen today, length of contact: 15 min Patient Chief Complaint: I am feeling depressed.'l Problems Identified/Issues Discussed: Patient seen and evaluated, chart reviewed and discussed with the nurse. She reports depressed mood and feelings of hopelessness and helplessness. Patient remained isolated, confined and withdrawn. Patient reports withdrawal symptoms including nausea, headaches, cramps and sweating. Patient is compliant with medications and denies any side effects. Symptoms are improving but need more time to stabilize. Support and psychoeducation given. Medication Change: Yes Medical Record Reviewed: Yes Mental Status Examination - Cognitive Function Orientation: Person, Place, Situation Memory: Intact Attention: WNL Concentration: Poor Association: WNL Fund of Knowledge: Poor - Mood Mood: Depressed - Affect Affect: Constricted, Depressed - Speech Speech: Soft - Formal Thought Process Formal Thought Process: No Impairment - Suicidal Ideation Suicidal Ideation: No - Homicidal Ideation Homicidal Ideation: No Goal/Treatment Plan - Goal/Treatment Plan Need for Continued Stay: Severe depression anxiety, Severe functional impairment Progress Toward Problem(s) and Goals/Treatment Plan: Opioid use disorder severe CBT Psychoeducation Supportive therapy, individual therapy Use [place] for abstinence Opioid withdrawal CBT Psychoeducation Supportive therapy, individual therapy Clonidine when necessary Methadone taper prn meds 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 - Smoking Cessation Smoking Cessation Initiated: No
[2017-10-24 06:18] VITALS: RESP 20
[2017-10-24] MEDS: Multivitamin With Minerals Tab PO SCH (08:13)
[2017-10-24] MEDS: Saccharomyces Boulardi 250 mg Cap PO SCH ×2 (09:42→17:10)
--- NOTE | 2017-10-24 12:55 | PCM.PYCHPN ---
Psychiatric Progress Note - Psychiatric Progress Note Patient seen today, length of contact: 15 min Patient Chief Complaint: I am still feeling depressed.' Problems Identified/Issues Discussed: Patient seen and evaluated, chart reviewed and discussed with the nurse. As per the staff, patient still appears isolated, depressed and withdrawn. Patient still reports depressed mood and reports feelings of hopelessness and helplessness. She still reports withdrawal symptoms including cramps, back pain and sweating. She denies any auditory or visual hallucinations or any psychotic symptoms. She needs some more time for stabilization. She is compliant with his medications and denies any side effects. Supportive therapy and psychoeducation were given. Medication Change: Yes (methadone taper) Medical Record Reviewed: Yes Mental Status Examination - Cognitive Function Orientation: Person, Place, Situation Memory: Intact Attention: WNL Concentration: Poor Association: WNL Fund of Knowledge: Poor - Mood Mood: Depressed, Anxious - Affect Affect: Constricted, Depressed - Formal Thought Process Formal Thought Process: No Impairment - Suicidal Ideation Suicidal Ideation: No - Homicidal Ideation Homicidal Ideation: No Goal/Treatment Plan - Goal/Treatment Plan Need for Continued Stay: Severe depression anxiety, Severe functional impairment Progress Toward Problem(s) and Goals/Treatment Plan: 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
[2017-10-25] MEDS: Multivitamin With Minerals Tab PO SCH (08:11)
[2017-10-25] MEDS: Saccharomyces Boulardi 250 mg Cap PO SCH ×2 (09:29→17:28)
[2017-10-25] MEDS ORDERED: Pneumococcal 23-Valent Vaccine IM ONE (10:00)
--- NOTE | 2017-10-25 10:48 | PCM.PYCHPN ---
Psychiatric Progress Note - Psychiatric Progress Note Patient seen today, length of contact: 15 min Patient Chief Complaint: I am feeling little better.' Problems Identified/Issues Discussed: Patient seen and evaluated, chart reviewed and discussed with the nurse. Patient reports some improvement in her depressed mood and reports some improvement in the feelings of hopelessness and helplessness. She still reports withdrawal symptoms including cramps, back pain and sweating. As per the staff, patient still appears isolated, depressed and withdrawn. She needs some more time for stabilization. She is compliant with his medications and denies any side effects. Supportive therapy and psychoeducation were given. Medication Change: Yes (methadone taper) Medical Record Reviewed: Yes Mental Status Examination - Cognitive Function Orientation: Person, Place, Situation Memory: Intact Attention: WNL Concentration: Poor Association: WNL Fund of Knowledge: Poor - Mood Mood: Depressed, Anxious - Affect Affect: Constricted, Depressed - Formal Thought Process Formal Thought Process: No Impairment - Suicidal Ideation Suicidal Ideation: No - Homicidal Ideation Homicidal Ideation: No Goal/Treatment Plan - Goal/Treatment Plan Need for Continued Stay: Severe depression anxiety, Severe functional impairment Progress Toward Problem(s) and Goals/Treatment Plan: 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
[2017-10-26] MEDS: Multivitamin With Minerals Tab PO SCH (08:02)
--- NOTE | 2017-10-26 10:02 | PCM.PYCHPN ---
Psychiatric Progress Note - Psychiatric Progress Note Patient seen today, length of contact: 15 min Patient Chief Complaint: I am feeling depressed.'l Problems Identified/Issues Discussed: Patient seen and evaluated, chart reviewed and discussed with the nurse. She reports some improvement in her mood and some improvement in her feelings of hopelessness and helplessness. However, she remained isolated, confined and withdrawn. Patient reports some improvement in her withdrawal symptoms. Patient is compliant with medications and denies any side effects. Symptoms are improving but need more time to stabilize. Support and psychoeducation given. Medication Change: Yes Medical Record Reviewed: Yes Mental Status Examination - Cognitive Function Orientation: Person, Place, Situation Memory: Intact Attention: WNL Concentration: Poor Association: WNL Fund of Knowledge: Poor - Mood Mood: Depressed - Affect Affect: Constricted, Depressed - Speech Speech: Soft - Formal Thought Process Formal Thought Process: No Impairment - Suicidal Ideation Suicidal Ideation: No - Homicidal Ideation Homicidal Ideation: No Goal/Treatment Plan - Goal/Treatment Plan Need for Continued Stay: Severe depression anxiety, Severe functional impairment Progress Toward Problem(s) and Goals/Treatment Plan: Opioid use disorder severe CBT Psychoeducation Supportive therapy, individual therapy Use [place] for abstinence Opioid withdrawal CBT Psychoeducation Supportive therapy, individual therapy Clonidine when necessary Methadone taper prn meds 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
[2017-10-26] MEDS: Saccharomyces Boulardi 250 mg Cap PO SCH ×2 (10:27→17:33)
[2017-10-26] MEDS ORDERED: Pneumococcal 23-Valent Vaccine IM ONE (19:27)
[2017-10-27 06:59] VITALS: O2SAT 98
[2017-10-27] MEDS: Multivitamin With Minerals Tab PO SCH (08:20)
[2017-10-27] MEDS: Saccharomyces Boulardi 250 mg Cap PO SCH ×2 (10:20→17:16)
--- NOTE | 2017-10-27 14:30 | PCM.PYCHPN ---
Psychiatric Progress Note - Psychiatric Progress Note Patient seen today, length of contact: 15 min Patient Chief Complaint: I am feeling much better.' Problems Identified/Issues Discussed: Patient seen and evaluated, chart reviewed and discussed with the nurse. She reports some improvement in her mood and some improvement in her feelings of hopelessness and helplessness. However, she remained isolated, confined and withdrawn. Patient reports some improvement in her withdrawal symptoms. Patient is compliant with medications and denies any side effects. Symptoms are improving but need more time to stabilize. Support and psychoeducation given. Medication Change: Yes Medical Record Reviewed: Yes Mental Status Examination - Cognitive Function Orientation: Person, Place, Situation Memory: Intact Attention: WNL Concentration: WNL Association: WNL Fund of Knowledge: Poor - Mood Mood: Depressed - Affect Affect: Constricted, Depressed - Speech Speech: Soft - Formal Thought Process Formal Thought Process: No Impairment - Suicidal Ideation Suicidal Ideation: No - Homicidal Ideation Homicidal Ideation: No Goal/Treatment Plan - Goal/Treatment Plan Need for Continued Stay: Severe depression anxiety, Severe functional impairment Progress Toward Problem(s) and Goals/Treatment Plan: 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
[2017-10-28 06:13] VITALS: BP 144/79; PULSE 71; TEMP 98.5
[2017-10-28] MEDS: Multivitamin With Minerals Tab PO SCH (08:55)
[2017-10-28] MEDS: Saccharomyces Boulardi 250 mg Cap PO SCH (10:02)
--- NOTE | 2017-10-28 10:58 | PCM.PYCHDC ---
Mental Status Examination - Mental Status Examination Orientation: Person, Place Memory: Intact Mood: Neutral Affect: Constricted Speech: Soft Attention: WNL Concentration: WNL Association: WNL Fund of Knowledge: WNL Formal Thought Process: No Impairment Description of patient's judgement and insight: good, fair Psychotic Thoughts and Behaviors: denies any AVH Suicidal Ideation: No Current Homicidal Ideation?: No Discharge Summary - Discharge Note Reason for Hospitalization: Patient seen, chart reviewed, and discussed with nurse. This is a 62 year old AA female, who is unemployed and lives with her brother, who came to the ED for cough and cold symptoms on 10/20/17. Patient has history of opioid use disorder. Patient states she snorts 1-6 bags of heroin per day. Patient has been using for a long time. Patient attended detox at [facility] 12/12/16-. Patient states she got depressed and started using again. Patient states she currently has withdrawal symptoms, including pain. Patient states she also feels very depressed. She states, "I am not right in the head." Patient states she had suicidal ideation 1 week ago. She denies history of suicide attempt. Patient states she sometimes has auditory and visual hallucinations. She also admits to racing thoughts, where she feels her head is traveling a mile a minute. Patient denies anxiety or feelings of paranoia. Patient denies past psychiatric hospitalizations. [facility] outpatient program Consultations:: List each consultation separately and include: 1. Reason for request. 2. Findings. 3. Follow-up Summary of Hospital Course include:: 1. Description of specific treatment plan utilized for patients during their course of treatmen. 2. Summarize the time- course for resolution of acute symptoms and/or regressed behaviors. 3. Describe issues identified and worked on during hospitalization. 4. Describe medication utilized. 5. Describe medical problems identified and treated. 6. Reassessment of suicide risk Summary of Hospital Course: During the course of her stay, patient (pt) started progressively improving and no longer remained irritable, depressed, and suicidal. Her mood and anxiety were improved and she started attending groups and meetings and started socializing. Patient denied any feelings of hopelessness, helplessness, and worthlessness, denied any problem with the sleep or appetite, denied suicidal ideation or homicidal ideation. Pt denied any auditory or visual hallucinations. She denied any withdrawal symptoms. Some changes were made in her current medications and patient was discharged on following medications. She tolerated these medications very well and denied any side effects. She was discharged to the [facility] outpatient program. - Diagnosis (1) MDD (major depressive disorder), recurrent episode Status: Acute (2) Heroin dependence Status: Acute Comment: cont meds , pt is not in acute psy condition at this time. Pt. 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 Pt was educated and counseled about the risks of drinking and abusing drugs. Pt was educated and counseled to go to the ER or call 911 if pt develop suicidal ideation or homicidal ideation, worsening of symptoms or severe side effects of the meds. Prescriptions/Medication Reconciliation: Albuterol HFA [Ventolin HFA 90 mcg/actuation (8 g)] 1 puff INH RQ6 PRN #1 inhaler PRN Reason: Shortness Of Breath amLODIPine [Norvasc] 10 mg PO DAILY #14 tab Gabapentin [Neurontin] 300 mg PO BID #60 cap Sertraline [Zoloft] 100 mg PO DAILY #60 tab traZODone [Desyrel] 50 mg PO HS #30 tab - Smoking Cessation Smoking Cessation Medication prescribed: No - Antipsychotic Medications Pt discharged on 2 or more routine antipsychotic medications: No
== END 2017-10-28 11:10 | disposition home or self-care (01) | DRG 744 ==
LOC: C.ER 09:14 → C.9E 14:31 → C.6T 15:23 → C.5E 10-22 17:26 → UNDODISIN 10-22 17:32
PROVIDERS: ADMIT Psychiatry & Neurology Psychiatry; ATTEND Psychiatry & Neurology Psychiatry
PROC: HZ2ZZZZ Detoxification Services for Substance Abuse Treatment (ICD-10-PCS; principal; 2017-10-21)
PROC: HZ52ZZZ Individual Psychotherapy for Substance Abuse Treatment, Cognitive-Behavioral (ICD-10-PCS; 2017-10-21)
PROC: HZ59ZZZ Individual Psychotherapy for Substance Abuse Treatment, Supportive (ICD-10-PCS; 2017-10-21)
PROC: HZ56ZZZ Individual Psychotherapy for Substance Abuse Treatment, Psychoeducation (ICD-10-PCS; 2017-10-21)
PROC: HZ42ZZZ Group Counseling for Substance Abuse Treatment, Cognitive-Behavioral (ICD-10-PCS; 2017-10-21)
PROC: HZ46ZZZ Group Counseling for Substance Abuse Treatment, Psychoeducation (ICD-10-PCS; 2017-10-21)
PROC: GZHZZZZ Group Psychotherapy (ICD-10-PCS; 2017-10-21)
PROC: GZ56ZZZ Individual Psychotherapy, Supportive (ICD-10-PCS; 2017-10-21)
DX: F11.23 Opioid dependence with withdrawal (principal); J18.9 Pneumonia, unspecified organism; F33.3 Major depressive disorder, recurrent, severe with psychotic symptoms; J44.0 Chronic obstructive pulmonary disease with (acute) lower respiratory infection; E78.00 Pure hypercholesterolemia, unspecified; I10 Essential (primary) hypertension; K21.9 Gastro-esophageal reflux disease without esophagitis; R45.851 Suicidal ideations